=== PATIENT | female | born 1960 | race Caucasian/White ===

== ENCOUNTER 2017-04-14 16:16 | Emergency (ER) | payer BC ==
[2017-04-14] MEDS ORDERED: MECLIZINE 25 MG TAB PO STA (16:50)
[2017-04-14] MEDS ORDERED: DIAZEPAM 5 MG/ML 2 ML SYRINGE IVP STA (16:50)
[2017-04-14] MEDS ORDERED: SCOPOLAMINE 1.5MG/72HR PATCH TRANSDERM STA (16:52)
--- NOTE | 2017-04-14 16:53 | ED ---
General Adult HPI - General Chief complaint: Dizziness Stated complaint: Dizzy Time Seen by Provider: 04/14/17 16:25 Source: patient, RN notes reviewed Mode of arrival: ambulatory Limitations: no limitations - History of Present Illness Initial comments: This is a 57 female presents emergency department stating that this morning she get up and the whole room was spinning and she became nauseous and she laid back down. Patient states the symptoms lasted a few minutes and then seemed to subside. Patient states this occurred multiple times today so she decided come to the emergency department. Patient states she has a mild headache but denies any neck stiffness. Patient denies any numbness weakness. Patient denies any near syncopal episode. Patient states movement seems to make the symptoms worse. Patient states closer eyes does not seem to change in symptoms at all. Patient denies any chest pain palpitations difficulty breathing shortness of breath. Patient denies any fever chills. Patient denies abdominal pain patient denies nausea vomiting or diarrhea. - Related Data Home Medications Medication Instructions Recorded Confirmed Levothyroxine Sodium [Synthroid] 112 mcg PO DAILY 03/26/15 04/14/17 Cimzia(Unknown Dose) 1 dose SQ Q30D 04/14/17 04/14/17 Insulin Aspart (For Pump) [NovoLOG 0.01 unit SQ-PUMP CONTINUOUS 04/14/17 (For Pump)] Previous Rx's Medication Instructions Recorded Meclizine [Antivert] 25 mg PO TID #20 tab 04/14/17 Allergies Allergy/AdvReac Type Severity Reaction Status Date / Time amoxicillin Allergy Nausea & Verified 04/14/17 17:08 Vomiting tetracycline Allergy Rash/Hives Verified 04/14/17 17:08 3-0 Silk Sutures Allergy Cause Uncoded 04/14/17 16:23 Infection Review of Systems ROS Statement: Those systems with pertinent positive or pertinent negative responses have been documented in the HPI. ROS Other: All systems not noted in ROS Statement are negative. Past Medical History Past Medical History: Coronary Artery Disease (CAD), Diabetes Mellitus, Rheumatoid Arthritis (RA) Additional Past Medical History / Comment(s): Patient diagnosed with thyroid cancer, diabetic retinopathy, and hypercholesterolemia. History of Any Multi-Drug Resistant Organisms: None Reported Past Surgical History: Breast Surgery, Section, Coronary Bypass/CABG, Orthopedic Surgery Additional Past Surgical History / Comment(s): Benign breast biopsy; Breast reduction: repair of trigger finger; thyroidectomy, Right knee sx, vectrectomy on left eye Past Anesthesia/Blood Transfusion Reactions: No Reported Reaction Past Psychological History: Depression Smoking Status: Never smoker Past Alcohol Use History: None Reported Past Drug Use History: None Reported General Exam - General Exam Comments Initial Comments: GENERAL: Patient is well-developed and well-nourished. Patient is nontoxic and well- hydrated and is in mild distress. ENT: Neck is soft and supple. No significant lymphadenopathy is noted. Oropharynx is clear. Moist mucous membranes. Neck has full range of motion without eliciting any pain. EYES: The sclera were anicteric and conjunctiva were pink and moist. Extraocular movements were intact and pupils were equal round and reactive to light. Eyelids were unremarkable. PULMONARY: Unlabored respirations. Good breath sounds bilaterally. No audible rales rhonchi or wheezing was noted. CARDIOVASCULAR: There is a regular rate and rhythm without any murmurs gallops or rubs. ABDOMEN: Soft and nontender with normal bowel sounds. SKIN: Skin is clear with no lesions or rashes and otherwise unremarkable. NEUROLOGIC: Patient is alert and oriented x3. Cranial nerves II through XII are grossly intact. Motor and sensory are also intact. Normal speech, volume and content. Symmetrical smile. Cerebellar testing finger to nose was normal bilaterally MUSCULOSKELETAL: Normal extremities with adequate strength and full range of motion. No lower extremity swelling or edema. No calf tenderness. LYMPHATICS: No significant lymphadenopathy is noted PSYCHIATRIC: Normal psychiatric evaluation. Normal interpersonal interactions appears functionally intact in deals appropriately with others. No signs of depression. No signs of anxiety. Limitations: no limitations Course Vital Signs 04/14/17 04/14/17 16:23 17:45 Temperature 98.3 F Pulse Rate 77 74 Respiratory 17 20 Rate Blood Pressure 138/67 134/70 O2 Sat by Pulse 97 98 Oximetry Medical Decision Making - Medical Decision Making EKG shows normal sinus rhythm at 71 bpm MN interval is 176 QRS is 92 QT interval is 400 QTC is 434. Patient's EKG shows no ST segment elevation or depression or T wave normalities are noted. Patient felt better after being medicated emergency department. CAT scan of the patient's head was normal. - Lab Data Result diagrams: 04/14/17 17:00 04/14/17 17:00 Lab Results 04/14/17 04/14/17 04/14/17 Range/Units 17:00 17:00 17:00 WBC 7.7 (3.8-10.6) k/uL RBC 4.93 (3.80-5.40) m/uL Hgb 14.6 (11.4-16.0) gm/dL Hct 43.5 (34.0-46.0) % MCV 88.4 (80.0-100.0) fL MCH 29.6 (25.0-35.0) pg MCHC 33.4 (31.0-37.0) g/dL RDW 13.0 (11.5-15.5) % Plt Count 378 (150-450) k/uL Neutrophils % 60 % Lymphocytes % 26 % Monocytes % 6 % Eosinophils % 5 % Basophils % 1 % Neutrophils # 4.6 (1.3-7.7) k/uL Lymphocytes # 2.0 (1.0-4.8) k/uL Monocytes # 0.5 (0-1.0) k/uL Eosinophils # 0.4 (0-0.7) k/uL Basophils # 0.1 (0-0.2) k/uL PT (9.0-12.0) sec INR (<1.2) APTT (22.0-30.0) sec Sodium 138 (137-145) mmol/L Potassium 4.7 (3.5-5.1) mmol/L Chloride 104 (98-107) mmol/L Carbon Dioxide 23 (22-30) mmol/L Anion Gap 11 mmol/L BUN 21 H (7-17) mg/dL Creatinine 0.60 (0.52-1.04) mg/dL Est GFR (MDRD) Af Amer >60 (>60 ml/min/1.73 sqM) Est GFR (MDRD) Non-Af >60 (>60 ml/min/1.73 sqM) Glucose 339 H (74-99) mg/dL Calcium 9.8 (8.4-10.2) mg/dL Magnesium 2.0 (1.6-2.3) mg/dL Total Bilirubin 0.5 (0.2-1.3) mg/dL AST 19 (14-36) U/L ALT 29 (9-52) U/L Alkaline Phosphatase 91 (38-126) U/L Total Creatine Kinase 58 (30-135) U/L CK-MB (CK-2) 0.7 (0.0-2.4) ng/mL CK-MB (CK-2) Rel Index 1.2 Troponin I <0.012 (0.000-0.034) ng/mL Total Protein 7.3 (6.3-8.2) g/dL Albumin 4.2 (3.5-5.0) g/dL 04/14/17 Range/Units 17:00 WBC (3.8-10.6) k/uL RBC (3.80-5.40) m/uL Hgb (11.4-16.0) gm/dL Hct (34.0-46.0) % MCV (80.0-100.0) fL MCH (25.0-35.0) pg MCHC (31.0-37.0) g/dL RDW (11.5-15.5) % Plt Count (150-450) k/uL Neutrophils % % Lymphocytes % % Monocytes % % Eosinophils % % Basophils % % Neutrophils # (1.3-7.7) k/uL Lymphocytes # (1.0-4.8) k/uL Monocytes # (0-1.0) k/uL Eosinophils # (0-0.7) k/uL Basophils # (0-0.2) k/uL PT 10.0 (9.0-12.0) sec INR 1.0 (<1.2) APTT 22.5 (22.0-30.0) sec Sodium (137-145) mmol/L Potassium (3.5-5.1) mmol/L Chloride (98-107) mmol/L Carbon Dioxide (22-30) mmol/L Anion Gap mmol/L BUN (7-17) mg/dL Creatinine (0.52-1.04) mg/dL Est GFR (MDRD) Af Amer (>60 ml/min/1.73 sqM) Est GFR (MDRD) Non-Af (>60 ml/min/1.73 sqM) Glucose (74-99) mg/dL Calcium (8.4-10.2) mg/dL Magnesium (1.6-2.3) mg/dL Total Bilirubin (0.2-1.3) mg/dL AST (14-36) U/L ALT (9-52) U/L Alkaline Phosphatase (38-126) U/L Total Creatine Kinase (30-135) U/L CK-MB (CK-2) (0.0-2.4) ng/mL CK-MB (CK-2) Rel Index Troponin I (0.000-0.034) ng/mL Total Protein (6.3-8.2) g/dL Albumin (3.5-5.0) g/dL Disposition Clinical Impression: Vertigo Disposition: HOME SELF-CARE Condition: Good Instructions: Vertigo (ED) Prescriptions: Meclizine [Antivert] 25 mg PO TID #20 tab Referrals: Colin Huertas MD [Primary Care Provider] - 1-2 days Time of Disposition: 18:38
[2017-04-14 17:21] LABS: Basophils # (A) 0.1 k/uL (0-0.2); Basophils % (A) 1 %; CH 30.5; CHCM 34.6; Eosinophils # (A) 0.4 k/uL (0-0.7); Eosinophils % (A) 5 %; HCT 43.5 % (34.0-46.0); HDW 2.64; HGB 14.6 gm/dL (11.4-16.0); Luc # (Auto) 0.15; Luc % (Auto) 2; Lymphocytes % (A) 26 %; MCH 29.6 pg (25.0-35.0); MCHC 33.4 g/dL (31.0-37.0); MCV 88.4 fL (80.0-100.0); Mean Platelet Volume 6.7; Monocytes # (A) 0.5 k/uL (0-1.0); Monocytes % (A) 6 %; Neutrophils # (A) 4.6 k/uL (1.3-7.7); Neutrophils % (A) 60 %; RBC 4.93 m/uL (3.80-5.40); WBC 7.7 k/uL (3.8-10.6); WBC (Perox) 7.55
[2017-04-14 17:31] LABS: ALT 29 U/L (9-52); AST 19 U/L (14-36); Alkaline Phosphatase 91 U/L (38-126); Anion Gap 11 mmol/L; Blood Urea Nitrogen 21 mg/dL (7-17); Calcium 9.8 mg/dL (8.4-10.2); Carbon Dioxide 23 mmol/L (22-30); Chloride 104 mmol/L (98-107); Glucose 339 mg/dL (74-99); Non-African American GFR(MDRD) >60 (>60 ml/min/1.73 sqM); Potassium 4.7 mmol/L (3.5-5.1); Sodium 138 mmol/L (137-145); Total Bilirubin 0.5 mg/dL (0.2-1.3); Total Protein 7.3 g/dL (6.3-8.2)
[2017-04-14 17:44] LABS: Creatine Kinase 58 U/L (30-135); Partial Thromboplastin Time 22.5 sec (22.0-30.0)
--- NOTE | 2017-04-14 17:50 | CT ---
EXAMINATION TYPE: CT brain wo con DATE OF EXAM: 04/14/2017 COMPARISON: NONE HISTORY: Dizziness today. CT DLP: 960.5 mGycm. Automated exposure control for dose reduction was used. FINDINGS: There is no acute intracranial hemorrhage, mass effect, or midline shift identified. The v entricles and sulci are within normal limits in size. The globes are intact and the visualized sinus es are clear. IMPRESSION: No acute intracranial hemorrhage, mass effect, or midline shift is seen.
--- NOTE | 2017-04-14 17:53 | XR ---
EXAMINATION TYPE: XR chest 2V DATE OF EXAM: 04/14/2017 COMPARISON: 08/14/2015 HISTORY: Pain TECHNIQUE: Frontal and lateral views of the chest are obtained. FINDINGS: Sternal sutures and mediastinal clips are redemonstrated. EKG leads. There is no focal air space opacity, pleural effusion, or pneumothorax seen. The cardiac silhouette size is within normal limits. The osseous structures are intact. IMPRESSION: No acute cardiopulmonary process.
[2017-04-14 17:57] LABS: Creatine Kinase MB 0.7 ng/mL (0.0-2.4); Troponin I <0.012 ng/mL (0.000-0.034)
[2017-04-14 19:02] VITALS: BP 119/69; PULSE 68; RESP 16; TEMP 97.6
== END 2017-04-14 19:11 | disposition home or self-care (01) ==
LOC: EC 16:16
DX: R42 Dizziness and giddiness (principal); R11.0 Nausea; R51 Headache; M06.9 Rheumatoid arthritis, unspecified; E11.319 Type 2 diabetes mellitus with unspecified diabetic retinopathy without macular edema; Z85.850 Personal history of malignant neoplasm of thyroid; Z88.0 Allergy status to penicillin; Z88.1 Allergy status to other antibiotic agents; Z91.048 Other nonmedicinal substance allergy status; Z79.4 Long term (current) use of insulin; Z79.899 Other long term (current) drug therapy
CPT/HCPCS: 99284; 96374; 36415; 93005; 80053; 82550; 82553; 83735; 84484; 85025; 85610; 85730; 71020; 70450; J3360

== ENCOUNTER → 2017-09-21 | Outpatient (CLI) | payer BC ==
--- NOTE | 2017-09-21 18:10 | XR ---
EXAMINATION TYPE: XR chest 2V DATE OF EXAM: 09/21/2017 COMPARISON: 04/14/2017 HISTORY: MRI clearance TECHNIQUE: Frontal and lateral views of the chest are obtained. FINDINGS: Heart and mediastinum are normal. Lungs are clear. There are sternal wires. Bony thorax is intact. Diaphragm is normal. IMPRESSION: Previous cardiac surgery. Otherwise negative exam. No evidence of a cardiac lead.. No ac tive cardiopulmonary disease.
== END | disposition home or self-care (01) ==
LOC: RADXRMAIN 17:45
PROVIDERS: ATTEND Orthopaedic Surgery Sports Medicine
DX: Z01.818 Encounter for other preprocedural examination (principal); M75.41 Impingement syndrome of right shoulder; M75.81 Other shoulder lesions, right shoulder; Z86.39 Personal history of other endocrine, nutritional and metabolic disease; Z87.39 Personal history of other diseases of the musculoskeletal system and connective tissue; Z98.890 Other specified postprocedural states
CPT/HCPCS: 71046

== ENCOUNTER 2018-03-24 01:37 | Inpatient (IN) | payer BC ==
[2018-03-24 06:02] LABS: ALT 31 U/L (9-52); AST 21 U/L (14-36); Albumin 4.7 g/dL (3.5-5.0); Alkaline Phosphatase 149 U/L (38-126); Amylase 48 U/L (30-110); Anion Gap 15 mmol/L; Blood Urea Nitrogen 26 mg/dL (7-17); Calcium 10.4 mg/dL (8.4-10.2); Carbon Dioxide 21 mmol/L (22-30); Chloride 100 mmol/L (98-107); GGT 23 U/L (12-43); Lipase 67 U/L (23-300); Potassium 4.6 mmol/L (3.5-5.1); Sodium 136 mmol/L (137-145); Total Bilirubin 0.4 mg/dL (0.2-1.3); Total Protein 7.6 g/dL (6.3-8.2)
[2018-03-24 06:05] LABS: Creatine Kinase 200 U/L (30-135); Creatine Kinase MB 1.8 ng/mL (0.0-2.4); Troponin I <0.012 ng/mL (0.000-0.034)
[2018-03-24 06:07] LABS: Glucose 500 mg/dL (74-99)
[2018-03-24 06:14] LABS: Basophils % (A) 0 %; Eosinophils % (A) 0 %; HCT 43.7 % (34.0-46.0); HGB 14.5 gm/dL (11.4-16.0); Lymphocytes # (A) 1.1 k/uL (1.0-4.8); Lymphocytes % (A) 7 %; MCH 29.9 pg (25.0-35.0); MCHC 33.2 g/dL (31.0-37.0); Mean Platelet Volume 6.4; Monocytes # (A) 0.8 k/uL (0-1.0); Monocytes % (A) 4 %; Neutrophils # (A) 15.2 k/uL (1.3-7.7); Neutrophils % (A) 88 %; Platelet Count 441 k/uL (150-450); RBC 4.86 m/uL (3.80-5.40); RDW 12.4 % (11.5-15.5); WBC 17.2 k/uL (3.8-10.6)
[2018-03-24 06:23] LABS: Prothrombin Time 9.5 sec (9.0-12.0)
[2018-03-24 06:28] LABS: Partial Thromboplastin Time 20.5 sec (22.0-30.0)
[2018-03-24 07:02] LABS: Glucose,Whole Blood 266 mg/dL (75-99)
[2018-03-24] MEDS: HEPARIN SOD,PORK IN 0.45% NACL 25,000 UNIT in 0.45% NACL 1 500ML.BAG IV SCH (07:23)
[2018-03-24] MEDS: SODIUM CHLORIDE 0.9% 1,000 ML IV SCH (07:28)
[2018-03-24] MEDS ORDERED: NITROGLYCERIN SL TABS 0.4 MG TAB SUBLINGUAL PRN (07:46)
[2018-03-24] MEDS ORDERED: MORPHINE SULFATE 4 MG/ML SYRINGE IV PRN (07:46)
[2018-03-24] MEDS ORDERED: ALPRAZolam 0.25 MG TAB PO PRN (07:46)
[2018-03-24] MEDS ORDERED: ZOLPIDEM 5 MG TAB PO PRN (07:46)
[2018-03-24] MEDS ORDERED: ACETAMINOPHEN TAB 325 MG TAB PO PRN (07:46)
[2018-03-24] MEDS: ASPIRIN 325 MG TAB PO SCH (08:25)
[2018-03-24] MEDS: METOPROLOL TARTRATE 12.5 MG TAB PO SCH ×2 (08:25→21:22)
[2018-03-24 09:15] LABS: Cholesterol 160 mg/dL (<200); HDL Cholesterol 45 mg/dL (40-60); LDL Cholesterol,Calculated 103 mg/dL (0-99); Triglycerides 61 mg/dL (<150)
[2018-03-24 09:22] LABS: Creatine Kinase 213 U/L (30-135)
[2018-03-24 09:36] LABS: Creatine Kinase MB 1.8 ng/mL (0.0-2.4); Troponin I <0.012 ng/mL (0.000-0.034)
--- NOTE | 2018-03-24 11:17 | XR ---
EXAMINATION TYPE: XR chest 1V portable DATE OF EXAM: 03/24/2018 HISTORY: Shortness of breath. COMPARISON: None. TECHNIQUE: Single view of the chest is submitted. FINDINGS: Demonstrated are scattered senescent parenchymal change. There is no evidence for focal infiltrate. The heart is stable. Hilar and mediastinal structures are within normal limits. Degenerative changes are seen of the dorsal spine. IMPRESSION: 1. Chronic changes without evidence for acute pulmonary disease.
--- NOTE | 2018-03-24 11:44 | CONS ---
CONSULTATION Mia Diaz is a 57-year-old female patient who has seen Dr. Leo Rowley in the past. She is on last in April of 2015, but has not seen him since. She was being treated for an upper respiratory infection, cough, expectoration. She has been treated with steroids and subsequently she started experiencing epigastric discomfort, chest discomfort, shortness of breath and came to the hospital. Her first 12-lead ECG did not show any evidence for any ST-segment abnormalities. LABS: Showed elevated white count of 17.2, sodium 136, potassium 4.6, BUN 26, creatinine 0.7, glucose 500, LDL 103. MEDICATION LIST: At home includes metoprolol succinate, losartan, atorvastatin, levothyroxine, dexamethasone, codeine, insulin. ALLERGIES: To AMOXICILLIN, TETRACYCLINE. REVIEW OF SYSTEMS: She has had fever, chills, cough, expectoration. No nausea, vomiting, or diarrhea. No hematuria or dysuria. No strokes or seizures or skin lesions. No musculoskeletal complaints. Epigastric discomfort and chest pain noted. PHYSICAL EXAMINATION: Pulse rate is in the 70s and 80s. She is afebrile, 98.7 degrees Fahrenheit, respirations are normal, blood pressure is normal 117/58 mmHg. Head and neck examination is normal. Heart sounds, S1, S2 are normal. No murmurs, no gallops, no rub. Breath sounds are reduced bilaterally with occasional crackles at the bases. Abdomen is soft, nontender. Extremities are warm. IMPRESSION: 1. Patient is a 57-year-old female presenting with chest discomfort and shortness of breath. 2. Upper respiratory and bronchitic symptoms and being treated with steroids for this. 3. History of coronary artery disease, coronary artery bypass grafting. 4. History of Cozaar, history of hypertension and diabetes. Suggest three serial cardiac enzymes, serial EKGs and further management thereafter and please continue treatment her for chronic obstructive pulmonary disease. MMODL / IJN: [id number] /
[2018-03-24 12:06] LABS: Glucose,Whole Blood 359 mg/dL (75-99)
[2018-03-24] MEDS ORDERED: INSULIN PUMP TARGET GLUCOSE 1 EACH MISC MISCELLANE PRN (12:29)
[2018-03-24] MEDS ORDERED: INSPUCOR MISCELLANE PRN (12:29)
[2018-03-24] MEDS ORDERED: INSULIN PUMP BASAL RATES 1 EACH MISC MISCELLANE PRN (12:29)
[2018-03-24] MEDS ORDERED: INSULIN PUMP ACTIVE INSULIN 1 EACH MISC MISCELLANE PRN (12:29)
[2018-03-24] MEDS ORDERED: INSULIN ASPART 100 UNIT/ML 1 ML 10 ML VIAL SQ PRN (12:29)
[2018-03-24] MEDS: INSULIN PUMP MEAL BOLUS 1 UNIT MISC MISCELLANE SCH ×3 (12:51→21:22)
--- NOTE | 2018-03-24 14:06 | P.HPIM ---
<Vinny,Hamlet - Last Filed: 03/24/18 14:07> History of Present Illness H&P Date: 03/24/18 Chief Complaint: Chest pain and angina, CAD, type 1 diabetes, rheumatoid arthritis, history 57-year-old female one of Dr. Deras patient with past medical history of CAD post CABG, history of diabetes type 1 on insulin pump, history of rheumatoid arthritis who is on biological agent also had history of thyroid cancer post thyroidectomy and medical management. Patient presented to the emergency department at [facility] complaining of mild upper respiratory associated with cough wheezes along with mild epigastric pain with increase heartburn and indigestion symptom were associated with tightness and pressure in the midsternal area radiating toward the jaw on the left upper side associated with worsening shortness of breath along with lightheadedness and mild palpitation. Symptoms were not relieved with aspirin according to patient with her history of coronary artery disease post surgery in the past and a very high risk factor ended up being hospitalized. Patient CK and troponin came back negative EKG did not show any change in her ST waves. Apparently patient recently was changed to a makeup editor in [facility] which made an appointment for follow-up in the next few weeks for testing. Patient will be kept in the Hospital CK with troponin 3 will be done if they' re negative patient will be released from the hospital to follow with her makeup editor for further testing. If troponin is elevated discussion with the patient whether once to be transfer close to her makeup editor or agreeable to do heart catheter in town. Also patient wants to go home late in the afternoon for troponin are negative it 's her birthday tomorrow and once to be home for the night. Review of Systems CONSTITUTIONAL: Well-developed no acute respiratory distress. EYES: No icterus sclerae, no conjunctivitis. EARS, NOSE, MOUTH, THROAT, and FACE: No sore throat, lymphadenopathy, carotid bruits or deformity. RESPIRATORY: Positive shortness of breath, cough, wheezes with URI symptoms. CARDIOVASCULAR: Positive chest pain, palpitation, PND and mild anginal symptoms. GASTROINTESTINAL: Nausea with increase heartburn with Dilaudid vomiting with worsening indigestion. GENITOURINARY: Negative for Hematuria or UTI, no kidney stones. INTEGUMENT/BREAST: Negative for any muscular injury with mild osteoarthritis.. HEMATOLOGIC/LYMPHATIC: Negative for bleed or purpura. MUSCULOSKELTAL: Negative for Myalgia or arthralgia. NEURLOGICAL: No LOC, Sz or syncope, blurred vision dizziness or abnormality.. BEHAVIORAL/PSYCH: Negative. ENDOCRINE: Negative. Medications and Allergies Home Medications Medication Instructions Recorded Confirmed Type Cimzia(Unknown Dose) 1 dose SQ Q30D 04/14/17 03/24/18 History Insulin Aspart (For Pump) [NovoLOG 0.01 unit SQ-PUMP CONTINUOUS 04/14/17 History (For Pump)] Albuterol Sulfate [Proair Hfa] 1 - 2 puff INHALATION RT-Q6H PRN 03/24/18 History Atorvastatin [Lipitor] 40 mg PO HS 03/24/18 03/24/18 History Codeine Phosphate/Guaifenesin 5 ml PO HS 03/24/18 03/24/18 History [Cheratussin AC Syrup] Dexamethasone [Hexadrol] 4 mg PO TID 03/24/18 03/24/18 History Levothyroxine Sodium [Synthroid] 100 mcg PO [id number] 03/24/18 03/24/18 History Losartan [Cozaar] 50 mg PO DAILY #0 03/24/18 03/24/18 Rx Metoprolol Succinate [Toprol XL] 25 mg PO DAILY #0 03/24/18 03/24/18 Rx Allergies Allergy/AdvReac Type Severity Reaction Status Date / Time amoxicillin Allergy Nausea & Verified 03/24/18 07:08 Vomiting tetracycline Allergy Rash/Hives Verified 03/24/18 07:08 3-0 Silk Sutures Allergy Cause Uncoded 04/14/17 16:23 Infection Physical Exam Vitals: Vital Signs Temp Pulse Resp BP Pulse Ox 03/24/18 12:00 98.4 F 75 18 108/71 97 03/24/18 07:57 79 18 03/24/18 05:45 98.7 F 85 18 117/58 99 Intake and Output 03/23/18 03/24/18 03/24/18 22:59 06:59 14:59 Intake Total 1000 Balance 1000 Intake: Oral 1000 Other: Voiding Method Toilet # Voids 1 Weight 62.596 kg Results CBC & Chem 7: 03/24/18 02:11 03/24/18 02:11 Labs: Abnormal Lab Results - Last 24 Hours (Table) 03/24/18 03/24/18 03/24/18 Range/Units 02:11 02:11 02:11 WBC 17.2 H (3.8-10.6) k/uL Neutrophils # 15.2 H (1.3-7.7) k/uL APTT (22.0-30.0) sec Sodium 136 L (137-145) mmol/L Carbon Dioxide 21 L (22-30) mmol/L BUN 26 H (7-17) mg/dL Glucose 500 H* (74-99) mg/dL POC Glucose (mg/dL) (75-99) mg/dL Calcium 10.4 H (8.4-10.2) mg/dL Alkaline Phosphatase 149 H (38-126) U/L Total Creatine Kinase 200 H (30-135) U/L LDL Cholesterol, Calc (0-99) mg/dL 03/24/18 03/24/18 03/24/18 Range/Units 02:11 06:59 08:27 WBC (3.8-10.6) k/uL Neutrophils # (1.3-7.7) k/uL APTT 20.5 L (22.0-30.0) sec Sodium (137-145) mmol/L Carbon Dioxide (22-30) mmol/L BUN (7-17) mg/dL Glucose (74-99) mg/dL POC Glucose (mg/dL) 266 H (75-99) mg/dL Calcium (8.4-10.2) mg/dL Alkaline Phosphatase (38-126) U/L Total Creatine Kinase 213 H (30-135) U/L LDL Cholesterol, Calc (0-99) mg/dL 03/24/18 03/24/18 Range/Units 08:27 12:03 WBC (3.8-10.6) k/uL Neutrophils # (1.3-7.7) k/uL APTT (22.0-30.0) sec Sodium (137-145) mmol/L Carbon Dioxide (22-30) mmol/L BUN (7-17) mg/dL Glucose (74-99) mg/dL POC Glucose (mg/dL) 359 H (75-99) mg/dL Calcium (8.4-10.2) mg/dL Alkaline Phosphatase (38-126) U/L Total Creatine Kinase (30-135) U/L LDL Cholesterol, Calc 103 H (0-99) mg/dL Thrombosis Risk Factor Assmnt - DVT/VTE Prophylaxis DVT/VTE Prophylaxis: Pharmacologic Prophylaxis ordered, Mechanical Prophylaxis ordered Assessment and Plan Plan: 1 chest pain: Atypical and most likely noncardiac in origin but with patient's significant risk factor and previous history of CAD, patient will be hospitalized CK with troponin will be done if negative discharged from the hospital and follow testing as an outpatient if positive might require testing in the hospital. 2 CAD: Post CABG has been seeing cardiology. 3 rheumatoid arthritis: Has been on biological agent which is Cimzia once a month still seen crematory attendant regularly. 4 type 1 diabetes: On insulin pump, patient blood sugar was quite bit high yesterday secondary to steroid use and diet, blood sugar today is much better continue insulin pump the same rate continue Accu-Chek with sliding scale. 5 hypertension: Continue metoprolol and losartan. 6 hyperlipidemia: Remain on atorvastatin 40 mg daily. 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 8 recent history of CAD mostly mild bronchitis was placed on Medrol Dosepak and medication with Dr. Huertas. 9 GI prophylaxis: Patient will be on pantoprazole 40 mg daily. 10 DVT prophylaxis: If remain in the hospital past 24 hours we'll do heparin subcutaneous otherwise patient will have knee-high [place] hose and early mobilization. CODE STATUS: Full code. Admit patient to 23 hours hold. <Vero Montes A - Last Filed: 03/25/18 10:41> History of Present Illness H&P Date: 03/24/18 Past Medical History Past Medical History: Coronary Artery Disease (CAD), Diabetes Mellitus, Hyperlipidemia, Rheumatoid Arthritis (RA), Thyroid Disorder Additional Past Medical History / Comment(s): pt had medullulary thyroid cancer , diabetic retinopathy, and hypercholesterolemia. History of Any Multi-Drug Resistant Organisms: None Reported Past Surgical History: Breast Surgery, Section, Coronary Bypass/CABG, Orthopedic Surgery Additional Past Surgical History / Comment(s): CABG - triple [address] Boris Austin, Benign breast biopsy; Breast reduction: repair of trigger finger; thyroidectomy 2012, Right knee sx, vectrectomy on left eye, cataract Past Anesthesia/Blood Transfusion Reactions: No Reported Reaction Past Psychological History: No Psychological Hx Reported, Depression Smoking Status: Never smoker Past Alcohol Use History: None Reported Past Drug Use History: None Reported - Past Family History Father Family Medical History: Coronary Artery Disease (CAD), CVA/TIA Additional Family Medical History / Comment(s): Father at age 88 with history of CVA and cardiovascular disease, triple bypass at age 69 Mother Family Medical History: Cancer Additional Family Medical History / Comment(s): breast ca at 66 Brother(s) Additional Family Medical History / Comment(s): Patient has 1 brother that has with history of thyroid medullary cancer, he was a [place] vet with exposure to agent orange and complications. Sister(s) Additional Family Medical History / Comment(s): She has one sister that is alive with history of diabetes mellitus type 2. Patient has 2 children with no major medical problems. Physical Exam Vitals: Vital Signs Temp Pulse Resp BP Pulse Ox 03/24/18 07:57 79 18 03/24/18 05:45 98.7 F 85 18 117/58 99 Intake and Output 03/23/18 03/24/18 03/24/18 22:59 06:59 14:59 Other: Voiding Method Toilet # Voids 1 Weight 62.596 kg Results CBC & Chem 7: 03/24/18 02:11 03/24/18 02:11 Labs: Abnormal Lab Results - Last 24 Hours (Table) 03/24/18 03/24/18 03/24/18 Range/Units 02:11 02:11 02:11 WBC 17.2 H (3.8-10.6) k/uL Neutrophils # 15.2 H (1.3-7.7) k/uL APTT (22.0-30.0) sec Sodium 136 L (137-145) mmol/L Carbon Dioxide 21 L (22-30) mmol/L BUN 26 H (7-17) mg/dL Glucose 500 H* (74-99) mg/dL POC Glucose (mg/dL) (75-99) mg/dL Calcium 10.4 H (8.4-10.2) mg/dL Alkaline Phosphatase 149 H (38-126) U/L Total Creatine Kinase 200 H (30-135) U/L LDL Cholesterol, Calc (0-99) mg/dL 03/24/18 03/24/18 03/24/18 Range/Units 02:11 06:59 08:27 WBC (3.8-10.6) k/uL Neutrophils # (1.3-7.7) k/uL APTT 20.5 L (22.0-30.0) sec Sodium (137-145) mmol/L Carbon Dioxide (22-30) mmol/L BUN (7-17) mg/dL Glucose (74-99) mg/dL POC Glucose (mg/dL) 266 H (75-99) mg/dL Calcium (8.4-10.2) mg/dL Alkaline Phosphatase (38-126) U/L Total Creatine Kinase 213 H (30-135) U/L LDL Cholesterol, Calc (0-99) mg/dL 03/24/18 Range/Units 08:27 WBC (3.8-10.6) k/uL Neutrophils # (1.3-7.7) k/uL APTT (22.0-30.0) sec Sodium (137-145) mmol/L Carbon Dioxide (22-30) mmol/L BUN (7-17) mg/dL Glucose (74-99) mg/dL POC Glucose (mg/dL) (75-99) mg/dL Calcium (8.4-10.2) mg/dL Alkaline Phosphatase (38-126) U/L Total Creatine Kinase (30-135) U/L LDL Cholesterol, Calc 103 H (0-99) mg/dL Thrombosis Risk Factor Assmnt - Choose All That Apply Each Factor Represents 1 point: Age 41-60 years Thrombosis Risk Factor Assessment Total Risk Factor Score: 1 Thrombosis Risk Factor Assessment Level: Low Risk
[2018-03-24 14:38] LABS: Creatine Kinase MB 2.1 ng/mL (0.0-2.4)
[2018-03-24 15:11] LABS: Troponin I 0.064 ng/mL (0.000-0.034)
[2018-03-24 17:21] LABS: Glucose,Whole Blood 204 mg/dL (75-99)
[2018-03-24 19:03] LABS: Hemoglobin A1C 11.8 % (4.0-6.0)
[2018-03-24 21:12] LABS: Glucose,Whole Blood 288 mg/dL (75-99)
[2018-03-25 07:14] LABS: Glucose,Whole Blood 193 mg/dL (75-99)
[2018-03-25] MEDS: INSULIN PUMP MEAL BOLUS 1 UNIT MISC MISCELLANE SCH ×4 (08:17→22:31)
[2018-03-25] MEDS ORDERED: ATORVASTATIN 40 MG TAB PO SCH (10:00)
--- NOTE | 2018-03-25 10:24 | PN ---
PROGRESS NOTE Mrs. Diaz is a 57-year-old female with known history of coronary artery disease, status post coronary artery bypass grafting, history of diabetes who had a recent upper respiratory infection with cough and subsequently had discomfort between her shoulder blade and jaw discomfort reminding her of the symptoms she had prior to her bypass 7 years ago. She is feeling well this morning. She still continues to have the cough, although not as severe. She has some cough that is improving. She has no further chest pain. She denies any dizziness or palpitation. No peripheral edema. No nausea. No vomiting. She continues to be on aspirin once a day, Lopressor 12-1/2 tab twice a day, insulin, IV heparin. PHYSICAL EXAMINATION: Blood pressure running in the 130-150 with a heart in the 60s. LUNGS: Clear. Heart regular rate and rhythm S1, S2. No S3 with a systolic murmur. ABDOMEN: Soft and nontender. EXTREMITIES: No edema. LAB DATA: Lab data revealed troponin less than 0.012 for 2 samples. Third sample 0.064. Cholesterol 160, LDL 103. EKG revealed a sinus mechanism with minor nonspecific ST-T wave changes. IMPRESSION: 1. Upper respiratory infection. 2. Non ST-segment elevation myocardial infarction in a patient with known history of coronary artery disease. 3. Diabetes mellitus. 4. Hypertension. 5. Hyperlipidemia. RECOMMENDATION: I have discussed with the patient and her the finding in detail. I have recommend proceeding with coronary angiography. The patient is followed on a regular basis by instrument inspector down at [facility]. I would favor waiting until Tuesday for her upper respiratory infection to improve. If the patient favors to be undergoing the surgery, at [facility], she will be transferred. I have discussed those findings with Dr. Joya who is her admitting physician. Otherwise, Dr. Rowley will do her procedure on Tuesday. In the meantime, we will continue present therapy. I will add clopidogrel to her regimen and depending on her progress, further recommendations will be made. MMODL / IJN: [id number] /
[2018-03-25] MEDS ORDERED: HEPARIN SODIUM,PORCINE 5,000 UNIT/ML 1 ML VIAL IV PRN (10:31)
[2018-03-25] MEDS: CLOPIDOGREL 75 MG TAB PO SCH (11:27)
[2018-03-25] MEDS: ISOSORBIDE MONONITRATE ER 30 MG TAB.ER.24H PO SCH (11:27)
[2018-03-25] MEDS: METOPROLOL TARTRATE 12.5 MG TAB PO SCH ×2 (11:31→22:31)
[2018-03-25] MEDS: PANTOPRAZOLE 40 MG/10 ML VIAL IVP SCH (11:31)
[2018-03-25] MEDS: ASPIRIN 325 MG TAB PO SCH (11:31)
[2018-03-25] MEDS: HEPARIN SOD,PORK IN 0.45% NACL 25,000 UNIT in 0.45% NACL 1 500ML.BAG IV SCH (11:33)
[2018-03-25 12:21] LABS: Glucose,Whole Blood 181 mg/dL (75-99)
--- NOTE | 2018-03-25 12:44 | P.PN ---
Subjective Progress Note Date: 03/25/18 57-year-old female one of Dr. Deras patient with past medical history of CAD post CABG, history of diabetes type 1 on insulin pump, history of rheumatoid arthritis who is on biological agent also had history of thyroid cancer post thyroidectomy and medical management. Patient presented to the emergency department at [facility] complaining of mild upper respiratory associated with cough wheezes along with mild epigastric pain with increase heartburn and indigestion symptom were associated with tightness and pressure in the midsternal area radiating toward the jaw on the left upper side associated with worsening shortness of breath along with lightheadedness and mild palpitation. Symptoms were not relieved with aspirin according to patient with her history of coronary artery disease post surgery in the past and a very high risk factor ended up being hospitalized. Patient CK and troponin came back negative EKG did not show any change in her ST waves. Apparently patient recently was changed to a underwear welter in [facility] which made an appointment for follow-up in the next few weeks for testing. Patient will be kept in the Hospital CK with troponin 3 will be done if they' re negative patient will be released from the hospital to follow with her underwear welter for further testing. If troponin is elevated discussion with the patient whether once to be transfer close to her underwear welter or agreeable to do heart catheter in town. Also patient wants to go home late in the afternoon for troponin are negative it 's her birthday tomorrow and once to be home for the night. 03/25: Objective - Vital Signs Vital signs: Vital Signs Temp 98.3 F 03/25/18 03:40 Pulse 57 L 03/25/18 08:00 Resp 16 03/25/18 08:00 BP 150/74 03/25/18 03:40 Pulse Ox 98 03/25/18 03:40 Intake & Output 03/24/18 03/25/18 03/25/18 18:59 06:59 18:59 Intake Total 1200 281.375 Balance 1200 281.375 Intake: Intake, IV Titration 281.375 Amount Heparin Sod,Pork in 0.45% 281.375 NaCl 25,000 unit In 0.45 % NaCl 1 500ml.bag @ 12 UNITS/KG/HR 15.02 mls/hr IV .Q24H PERRY Rx#: [id number] Oral 1200 Other: Voiding Method Toilet Toilet Toilet # Voids 1 3 - Exam Gen: This is a 58-year-old female patient. Today she is very tearful and crying as she is concerned about her heart and need for heart catheterization with elevated troponin on the third trial. HEENT: Head is atraumatic, normocephalic. Pupils equal, round. Sclerae is anicteric. NECK: Supple. No JVD. No lymphadenopathy. No thyromegaly. LUNGS: Clear to auscultation. No wheezes or rhonchi. No intercostal retractions. HEART: Regular rate and rhythm. No murmur. ABDOMEN: Soft. Bowel sounds are present. No masses. No tenderness. EXTREMITIES: No pedal edema. No calf tenderness. NEUROLOGICAL: Patient is awake, alert and oriented x3. Cranial nerves 2 through 12 are grossly intact. - Labs CBC & Chem 7: 03/24/18 02:11 03/24/18 02:11 Labs: Abnormal Lab Results - Last 24 Hours (Table) 03/24/18 03/24/18 03/24/18 Range/Units 12:03 13:46 17:14 APTT (22.0-30.0) sec POC Glucose (mg/dL) 359 H 204 H (75-99) mg/dL Total Creatine Kinase 214 H (30-135) U/L Troponin I 0.064 H* (0.000-0.034) ng/mL 03/24/18 03/25/18 03/25/18 Range/Units 21:07 07:11 08:25 APTT 41.8 H (22.0-30.0) sec POC Glucose (mg/dL) 288 H 193 H (75-99) mg/dL Total Creatine Kinase (30-135) U/L Troponin I (0.000-0.034) ng/mL Assessment and Plan Plan: 1. Chest pain with or troponin elevated. Patient has been seen by Dr. Aguilera with plan for heart catheterization on Tuesday. Patient has discussed with her own underwear welter and has decided to stay at [facility]. A fourth troponin has been ordered. Continue aspirin, Plavix, heparin drip, Imdur, Cozaar, Lopressor. 2 CAD: Post CABG has been seeing cardiology. 3 rheumatoid arthritis: Has been on biological agent which is Cimzia once a month still seen senior office support assistant sosa regularly. 4 type 1 diabetes: On insulin pump, patient blood sugar was quite bit high yesterday secondary to steroid use and diet, blood sugar today is much better continue insulin pump the same rate continue Accu-Chek with sliding scale. 5 hypertension: Continue metoprolol and losartan. 6 hyperlipidemia: Remain on atorvastatin 40 mg daily. 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 8 recent history of CAD mostly mild bronchitis was placed on Medrol Dosepak and medication with Dr. Huertas. 9 GI prophylaxis: Patient will be on pantoprazole 40 mg daily. 10 DVT prophylaxis: If remain in the hospital past 24 hours we'll do heparin subcutaneous otherwise patient will have knee-high [place] hose and early mobilization. CODE STATUS: Full code. Discharge plan: Discharge home Impression and plan of care have been directed as dictated by the signing physician. Vero Montes nurse practitioner acting as scribe for signing physician.
[2018-03-25] MEDS: SODIUM CHLORIDE 0.9% 1,000 ML IV SCH (15:27)
--- NOTE | 2018-03-25 16:17 | ECHOF ---
Referral Reason:cad MEASUREMENTS -------- HEIGHT: 152.4 cm WEIGHT: 62.6 kg BP: IVSd: 0.9 cm (0.6 - 1.1) LVIDd: 3.8 cm (3.9 - 5.3) LVPWd: 0.7 cm (0.6 - 1.1) IVSs: 1.1 cm LVIDs: 2.8 cm LVPWs: 1.0 cm LA Diam: 2.7 cm (2.7 - 3.8) LAESV Index (A-L): 21.26 ml/m Ao Diam: 2.6 cm (2.0 - 3.7) AV Cusp: 1.3 cm (1.5 - 2.6) LA Diam: 3.2 cm (2.7 - 3.8) MV EXCURSION: 13.970 mm (> 18.000) MV EF SLOPE: 69 mm/s (70 - 150) EPSS: 0.3 cm MV E Jorge: 0.92 m/s MV DecT: 200 ms MV A Jorge: 0.63 m/s MV E/A Ratio: 1.45 RAP: 5.00 mmHg RVSP: 18.20 mmHg FINDINGS -------- Sinus rhythm. This was a techncally difficult study with suboptimal views, , Lumason utilized for enhancement of im ages. The left ventricular size is normal. Left ventricular wall thickness is normal. Overall left vent ricular systolic function is low-normal with, an EF between 50 - 55 %. Apical anterior LV wall yolis on is hypokinetic. Apical septum LV wall motion is hypokinetic. The right ventricle is normal in size. The left atrial size is normal. The right atrial size is normal. 5.0mg OF Lumason UTLIZED: 2 OR MORE WALL SEGMENTS NOT VISUALIZED. There is mild aortic valve sclerosis. There is no evidence of aortic regurgitation. The mitral valve is normal. Mild mitral regurgitation is present. Mild tricuspid regurgitation present. There is no evidence of pulmonary hypertension. The right v entricular systolic pressure, as measured by Doppler, is 18.20mmHg. There is no pulmonic regurgitation present. The aortic root size is normal. There is no pericardial effusion. CONCLUSIONS -------- 1. Sinus rhythm. 2. The left ventricular size is normal. 3. Left ventricular wall thickness is normal. 4. Overall left ventricular systolic function is low-normal with, an EF between 50 - 55 %. 5. Apical anterior LV wall motion is hypokinetic. 6. Apical septum LV wall motion is hypokinetic. 7. The left atrial size is normal. 8. 5.0mg OF Lumason UTLIZED: 2 OR MORE WALL SEGMENTS NOT VISUALIZED. 9. There is mild aortic valve sclerosis. 10. Mild mitral regurgitation is present. 11. Mild tricuspid regurgitation present. 12. There is no evidence of pulmonary hypertension. 13. There is no pulmonic regurgitation present. 14. The aortic root size is normal. 15. There is no pericardial effusion. AUTOTRANSFUSIONIST: Hanny العلي RDCS
[2018-03-25 17:00] LABS: Glucose,Whole Blood 195 mg/dL (75-99)
[2018-03-25 21:03] LABS: Glucose,Whole Blood 313 mg/dL (75-99)
[2018-03-26] MEDS: MELATONIN 5 MG TABLET PO SCH ×2 (03:21→21:10)
[2018-03-26 06:25] LABS: Glucose,Whole Blood 219 mg/dL (75-99)
[2018-03-26] MEDS: SODIUM CHLORIDE 0.9% 1,000 ML IV SCH (06:32)
[2018-03-26] MEDS: INSULIN PUMP MEAL BOLUS 1 UNIT MISC MISCELLANE SCH ×4 (06:32→21:12)
[2018-03-26 07:12] LABS: Anion Gap 7 mmol/L; Blood Urea Nitrogen 18 mg/dL (7-17); Calcium 8.4 mg/dL (8.4-10.2); Carbon Dioxide 25 mmol/L (22-30); Chloride 106 mmol/L (98-107); Glucose 243 mg/dL (74-99); Potassium 3.8 mmol/L (3.5-5.1); Sodium 138 mmol/L (137-145)
[2018-03-26] MEDS: HEPARIN SOD,PORK IN 0.45% NACL 25,000 UNIT in 0.45% NACL 1 500ML.BAG IV SCH (07:31)
[2018-03-26] MEDS ORDERED: ALBUTEROL NEBULIZED 2.5 MG/3 ML INHALATION PRN (08:52)
[2018-03-26] MEDS: PANTOPRAZOLE 40 MG/10 ML VIAL IVP SCH (08:54)
[2018-03-26] MEDS: METOPROLOL TARTRATE 12.5 MG TAB PO SCH ×2 (08:54→21:09)
[2018-03-26] MEDS: CLOPIDOGREL 75 MG TAB PO SCH (08:54)
[2018-03-26] MEDS: ATORVASTATIN 80 MG TAB PO SCH (08:54)
[2018-03-26] MEDS: ASPIRIN 325 MG TAB PO SCH (08:54)
[2018-03-26] MEDS: LOSARTAN 50 MG TAB PO SCH (08:54)
[2018-03-26] MEDS: ISOSORBIDE MONONITRATE ER 30 MG TAB.ER.24H PO SCH (08:54)
--- NOTE | 2018-03-26 09:11 | P.PN ---
Subjective Progress Note Date: 03/26/18 57-year-old female one of Dr. Deras patient with past medical history of CAD post CABG, history of diabetes type 1 on insulin pump, history of rheumatoid arthritis who is on biological agent also had history of thyroid cancer post thyroidectomy and medical management. Patient presented to the emergency department at [facility] complaining of mild upper respiratory associated with cough wheezes along with mild epigastric pain with increase heartburn and indigestion symptom were associated with tightness and pressure in the midsternal area radiating toward the jaw on the left upper side associated with worsening shortness of breath along with lightheadedness and mild palpitation. Symptoms were not relieved with aspirin according to patient with her history of coronary artery disease post surgery in the past and a very high risk factor ended up being hospitalized. Patient CK and troponin came back negative EKG did not show any change in her ST waves. Apparently patient recently was changed to a talent consultant in [facility] which made an appointment for follow-up in the next few weeks for testing. Patient will be kept in the Hospital CK with troponin 3 will be done if they' re negative patient will be released from the hospital to follow with her talent consultant for further testing. If troponin is elevated discussion with the patient whether once to be transfer close to her talent consultant or agreeable to do heart catheter in town. Also patient wants to go home late in the afternoon for troponin are negative it 's her birthday tomorrow and once to be home for the night. 03/25: Patient was planned for discharge of her third troponin was negative with the third one came back at 0.064 and her discharge was held and she was recommended by cardiology for heart catheterization planned for Tuesday. The patient did discuss with Dr. Lopez her talent consultant and she had recommended that the patient stay here and have heart catheterization on Tuesday. Patient is currently pain-free. 03/26: Patient has been transferred to the selective care unit. Additional repeat troponins have been 0.123, 0.1 and 0.095. Patient is scheduled for heart catheterization for Tuesday. Echocardiogram reveals EF of 50-55% with apical anterior LV and apical septum LV wall motion hypokinetic, mild aortic valve sclerosis, mild mitral regurgitation, mild tricuspid regurgitation, no pulmonary hypertension. Blood sugars this morning have been elevated with maximum 313 but patient is managing on her pump and giving herself bolus. Cholesterol 160, LDL 103, HDL 45, triglycerides 61. Objective - Vital Signs Vital signs: Vital Signs Temp 97.5 F L 03/26/18 04:00 Pulse 71 03/26/18 04:00 Resp 18 03/26/18 04:00 BP 153/70 03/26/18 04:00 Pulse Ox 100 03/26/18 04:00 Intake & Output 03/25/18 03/26/18 03/26/18 18:59 06:59 18:59 Intake Total 618.29 377.37 Balance 618.29 377.37 Weight 63.5 kg Intake: Intake, IV Titration 178.29 377.37 Amount Heparin Sod,Pork in 0.45% 178.29 377.37 NaCl 25,000 unit In 0.45 % NaCl 1 500ml.bag @ 12 UNITS/KG/HR 15.02 mls/hr IV .Q24H PERRY Rx#: [id number] Oral 440 Other: Voiding Method Toilet Toilet # Voids 3 1 - Exam Gen: This is a 58-year-old female patient. Today she is very tearful and crying as she is concerned about her heart and need for heart catheterization with elevated troponin on the third trial. HEENT: Head is atraumatic, normocephalic. Pupils equal, round. Sclerae is anicteric. NECK: Supple. No JVD. No lymphadenopathy. No thyromegaly. LUNGS: Clear to auscultation. No wheezes or rhonchi. No intercostal retractions. HEART: Regular rate and rhythm. No murmur. ABDOMEN: Soft. Bowel sounds are present. No masses. No tenderness. EXTREMITIES: No pedal edema. No calf tenderness. NEUROLOGICAL: Patient is awake, alert and oriented x3. Cranial nerves 2 through 12 are grossly intact. - Labs CBC & Chem 7: 03/24/18 02:11 03/26/18 06:47 Labs: Abnormal Lab Results - Last 24 Hours (Table) 03/25/18 03/25/18 03/25/18 Range/Units 08:25 08:25 12:09 APTT 41.8 H (22.0-30.0) sec BUN (7-17) mg/dL Glucose (74-99) mg/dL POC Glucose (mg/dL) 181 H (75-99) mg/dL Troponin I 0.123 H* (0.000-0.034) ng/mL 03/25/18 03/25/18 03/25/18 Range/Units 14:55 16:40 18:16 APTT 68.3 H (22.0-30.0) sec BUN (7-17) mg/dL Glucose (74-99) mg/dL POC Glucose (mg/dL) 195 H (75-99) mg/dL Troponin I 0.100 H* (0.000-0.034) ng/mL 03/25/18 03/25/18 03/26/18 Range/Units 20:22 21:02 06:23 APTT (22.0-30.0) sec BUN (7-17) mg/dL Glucose (74-99) mg/dL POC Glucose (mg/dL) 313 H 219 H (75-99) mg/dL Troponin I 0.095 H* (0.000-0.034) ng/mL 03/26/18 03/26/18 Range/Units 06:47 06:47 APTT 179.9 H* (22.0-30.0) sec BUN 18 H (7-17) mg/dL Glucose 243 H (74-99) mg/dL POC Glucose (mg/dL) (75-99) mg/dL Troponin I (0.000-0.034) ng/mL Assessment and Plan Plan: 1. Non-ST elevated myocardial infarction. Patient has been seen by Dr. Aguilera with plan for heart catheterization on Tuesday. Patient has discussed with her own talent consultant and has decided to stay at [facility]. Echocardiogram as above. Continue aspirin, Plavix, heparin drip, Imdur, Cozaar, Lopressor. 2 CAD: Post CABG has been seeing cardiology. 3 rheumatoid arthritis: Has been on biological agent which is Cimzia once a month still seen transportation dispatcher regularly. 4 type 1 diabetes: On insulin pump, patient blood sugar was quite bit high yesterday secondary to steroid use and diet, blood sugar today is much better continue insulin pump the same rate continue Accu-Chek with sliding scale. 5 hypertension: Continue metoprolol and losartan. 6 hyperlipidemia: Remain on atorvastatin 40 mg daily. 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 8 recent history of CAD mostly mild bronchitis was placed on Medrol Dosepak and medication with Dr. Huertas. 9 GI prophylaxis: Patient will be on pantoprazole 40 mg daily. 10 DVT prophylaxis: If remain in the hospital past 24 hours we'll do heparin subcutaneous otherwise patient will have knee-high [place] hose and early mobilization. CODE STATUS: Full code. Discharge plan: return home Impression and plan of care have been directed as dictated by the signing physician. Vero Montes nurse practitioner acting as scribe for signing physician.
[2018-03-26 12:16] LABS: Glucose,Whole Blood 135 mg/dL (75-99)
[2018-03-26] MEDS ORDERED: ATORVASTATIN 80 MG TAB PO STA (13:19)
[2018-03-26] MEDS ORDERED: ASPIRIN 325 MG TAB PO STA (13:19)
[2018-03-26] MEDS ORDERED: NITROGLYCERIN SL TABS 0.4 MG TAB SUBLINGUAL PRN (13:19)
[2018-03-26] MEDS ORDERED: ALPRAZolam 0.25 MG TAB PO PRN (13:19)
[2018-03-26] MEDS ORDERED: ALPRAZolam 0.5 MG TAB PO PRN (13:19)
[2018-03-26] MEDS ORDERED: SODIUM CHLORIDE 0.9% 1,000 ML in EMPTY BAG 1 BAG IV ONE (13:19)
--- NOTE | 2018-03-26 14:04 | PN ---
PROGRESS NOTE Mrs. Diaz is a 58-year-old female with known history of coronary artery disease status post coronary artery bypass grafting who presented with upper respiratory infection and was found to have mild elevation of the troponin. She is feeling well this morning. She denies any symptoms of chest pain. She denies any dizziness or palpitations. She denies any nausea. She denies any cough. She feels better overall. She continues to be at this time on aspirin once a day, Lipitor 80 mg daily, Plavix 75 mg daily, IV heparin, insulin, isosorbide mononitrate 30 mg daily, losartan 50 mg daily, metoprolol tartrate 12.5 mg twice a day. PHYSICAL EXAMINATION: Blood pressure 118/58 with a heart rate in the 60s. LUNGS: Clear. HEART: Regular rate and rhythm S1, S2. No S3. No rub. ABDOMEN: Soft and nontender. EXTREMITIES: No edema. LAB DATA: BUN and creatinine of 18 and 0.63. Her peak troponin is 0.1. Her echocardiogram revealed preserved left ventricular size and systolic function. IMPRESSION: 1. Unstable angina with non-ST elevation myocardial infarction. 2. Status post coronary artery bypass grafting. 3. Hypertension. 4. Hyperlipidemia. 5. Diabetes mellitus. RECOMMENDATION: We will proceed with coronary angiography tomorrow to assess her status and guide her treatment and depending on results of testing, further recommendations will be made. MMODL / IJN: [id number] /
[2018-03-26 16:44] LABS: Glucose,Whole Blood 285 mg/dL (75-99)
[2018-03-26 21:09] LABS: Glucose,Whole Blood 219 mg/dL (75-99)
[2018-03-27 06:18] LABS: Glucose,Whole Blood 204 mg/dL (75-99)
[2018-03-27 06:35] LABS: Glucose,Whole Blood 287 mg/dL (75-99)
[2018-03-27] MEDS: HEPARIN SOD,PORK IN 0.45% NACL 25,000 UNIT in 0.45% NACL 1 500ML.BAG IV SCH (06:35)
[2018-03-27] MEDS: SODIUM CHLORIDE 0.9% 1,000 ML IV SCH (06:35)
[2018-03-27] MEDS: INSULIN PUMP MEAL BOLUS 1 UNIT MISC MISCELLANE SCH ×4 (06:36→21:33)
[2018-03-27] MEDS: ISOSORBIDE MONONITRATE ER 30 MG TAB.ER.24H PO SCH (06:38)
[2018-03-27] MEDS: ATORVASTATIN 80 MG TAB PO SCH (06:38)
[2018-03-27] MEDS: LOSARTAN 50 MG TAB PO SCH (06:38)
[2018-03-27] MEDS: PANTOPRAZOLE 40 MG/10 ML VIAL IVP SCH (06:38)
[2018-03-27] MEDS: LEVOTHYROXINE 100 MCG TAB PO SCH (06:38)
[2018-03-27] MEDS: METOPROLOL TARTRATE 12.5 MG TAB PO SCH ×2 (06:38→21:33)
[2018-03-27] MEDS: CLOPIDOGREL 75 MG TAB PO SCH (06:38)
[2018-03-27] MEDS: ASPIRIN 325 MG TAB PO SCH (06:38)
[2018-03-27] MEDS ORDERED: diphenhydrAMINE 50 MG/ML 1 ML VIAL IVP ONE (10:43)
[2018-03-27] MEDS ORDERED: LIDOCAINE 1% INJ 10MG/ML (20 ML MDV) SQ ONE ×2 (10:43→10:45)
[2018-03-27] MEDS ORDERED: fentaNYL (PF) 50 MCG/ML 2 ML AMP IVP ONE (10:46)
[2018-03-27] MEDS ORDERED: IV FLUID CONTINUATION 400 ML IV ONE (10:48)
[2018-03-27] MEDS ORDERED: NITROGLYCERIN SL TABS 0.4 MG TAB SUBLINGUAL ONE (10:48)
[2018-03-27] MEDS ORDERED: PRASUGREL 10 MG TAB PO ONE (11:02)
[2018-03-27] MEDS ORDERED: BIVALIRUDIN 250 MG VIAL IV ONE (11:03)
[2018-03-27] MEDS ORDERED: NITROGLYCERIN 1000MCG/10ML SYRINGE INTRACORON ONE (11:05)
[2018-03-27] MEDS ORDERED: BIVALIRUDIN 250 MG in SODIUM CHLORIDE 0.9% 50 ML IV ONE (11:05)
[2018-03-27] MEDS ORDERED: MIDAZOLAM 2 MG/2 ML VIAL IV ONE (11:07)
[2018-03-27] MEDS ORDERED: IOPAMIDOL-370 100ML BTL INJ ONE (11:32)
[2018-03-27] MEDS ORDERED: IOPAMIDOL-370 125ML BTL INJ ONE (11:32)
[2018-03-27] MEDS ORDERED: ATROPINE SULFATE 0.1 MG/ML 10ML SYRINGE IV PRN (11:46)
[2018-03-27] MEDS ORDERED: NITROGLYCERIN SL TABS 0.4 MG TAB SUBLINGUAL PRN (11:46)
[2018-03-27] MEDS ORDERED: MAG HYDROX/AL HYDROX/SIMETH 30 ML CUP PO PRN (11:46)
[2018-03-27] MEDS ORDERED: RX INFO: IV CONTRAST WAS GIVEN 1 EACH MISC MISCELLANE PRN (11:46)
[2018-03-27] MEDS ORDERED: ZOLPIDEM 5 MG TAB PO PRN (11:46)
[2018-03-27] MEDS ORDERED: SODIUM CHLORIDE 0.9% 1,000 ML IV SCH (12:00)
[2018-03-27 12:01] LABS: Glucose,Whole Blood 298 mg/dL (75-99)
--- NOTE | 2018-03-27 12:20 | CC ---
CARDIAC CATHETERIZATION REPORT Mrs. Diaz is a 58-year-old female with known history of hypertension, hyperlipidemia, diabetes mellitus, and coronary artery disease status post coronary artery bypass grafting in 2010, who presented with symptoms of upper respiratory infection with chest discomfort and jaw discomfort consistent with angina pectoris and mild elevation of her troponin. In view of that, recommendation was made regarding cardiac catheterization. The procedure, its risks and complications were discussed with the patient who is in full understanding and agreement. PROCEDURE: Patient was brought to the union laborer in a fasting semi-sedated state after receiving fentanyl and Benadryl and achieving moderate conscious sedated state. Using Xylocaine anesthesia in the Seldinger technique, a 6-Bhutanese sheath was introduced in the right femoral artery. Selective right and left coronary angiography performed using 6- Bhutanese, right and left Hakeem catheter. Multiple views of the coronary artery including hemiaxial views were obtained. The 6-Bhutanese right Hakeem catheter was used to cannulate the KENNY to LAD, saphenous vein graft to diagonal and to the obtuse marginal branch. Images of the grafts were obtained. Following that, angioplasty and stenting was performed. Following that, a 6-Bhutanese tight pigtail catheter was introduced in the left ventricle and a 30-degree MAYA view of the left ventricle was obtained. Following that, catheter and sheaths were removed. Hemostasis was obtained with deployment of an Angio-Seal. There was no immediate complication. Patient was returned to her room in stable condition. FINDINGS: LEFT MAIN: This is a very short size vessel bifurcating in left circumflex and , left anterior descending artery. Left main coronary artery has a 30% to 40% plaque. LEFT ANTERIOR DESCENDING ARTERY: This vessel gives rise to a diagonal branch. The LAD is diffusely disease proximal to that with no high-grade stenosis. Beyond the diagonal origin, the LAD is totally occluded with no antegrade flow. LEFT CIRCUMFLEX: This is a dominant vessel large in caliber distally bifurcating PDA and posterolateral segment and branches. The left circumflex proximally is calcified and has a 95% stenosis in the long segment. The rest of the vessel has no high-grade stenosis. RIGHT CORONARY ARTERY: This vessel is a small nondominant vessel that has a 99% stenosis proximally. The vessel is very small in caliber. KENNY to LAD: The distal anastomotic site is patent. The flow into the LAD is brisk. There is no evidence of high-grade stenosis. SAPHENOUS VEIN GRAFT TO THE FIRST OBTUSE MARGINAL BRANCH: The proximal and distal anastomotic sites are patent. The flow in the obtuse marginal branch is brisk. There is no evidence of obstructive disease. SAPHENOUS VEIN GRAFT TO THE DIAGONAL BRANCH: This graft is totally occluded at the ostium. LEFT VENTRICULOGRAM: Left ventriculogram is performed in the 30-degree MAYA view and revealed normal left ventricular size and systolic function. Ejection fraction is 60%. There was no significant mitral regurgitation. HEMODYNAMICS: There was no gradient across the aortic valve. The left ventricular end- diastolic pressure was 12 to 16 mmHg. CONCLUSION: 1. Totally occluded mid left anterior descending artery. 2. Totally occluded first obtuse marginal branch. 3. Severe disease in a small right coronary artery. 4. Patent KENNY to LAD. 5. Patent saphenous vein graft to the obtuse marginal branch 1. 6. Occluded saphenous vein graft to the diagonal branch. 7. Critical stenosis in the proximal seneca circumflex. 8. Normal left ventricular size and systolic function. RECOMMENDATION: In view of finding anatomy, I recommend proceeding with angioplasty and stenting of the left circumflex. The procedure, its risks and complications were discussed with the patient who is in full understanding and agreement. MMODL / IJN: [id number] /
--- NOTE | 2018-03-27 12:56 | PTCA ---
PERCUTANEOUSTRANS CORORONARY ANGIOGRAPHY Mrs. Diaz is a 58-year-old female who presented with evidence of non ST- segment elevation myocardial infarction, underwent cardiac catheterization, was found to have critical stenosis involving the proximal left circumflex. In view of that, recommendation regarding angioplasty and stenting. The procedure as well as the risks and the complications were discussed with the patient who is in full understanding and agreement. PROCEDURE: A 6-Colombian FR4 guiding catheter introduced in the system after cannulating the left main a 0.014 balanced medium weight J-wire was advanced across the lesion, positioned distally. Subsequently attempt to advance a 2.5 x 23 mm Xience Alpine stent were unsuccessful. The stent was removed and a 2.5 x 12 mm Euphora balloon was advanced and inflation up to 8 atmospheres were done. After removing the balloon at attempt to advance the stent were unsuccessful that stent was removed and another 0.014 balanced medium weight J-wire was advanced next to the first one in a jessenia fashion. Subsequently the stent was advanced in position. The wire was withdrawn and introduced into the LAD. Subsequently, the stent was deployed and post dilated at 16 atmospheres. Following that the balloon was removed and a 2.75 x 50 mm NC Euphora balloon was advanced and one inflation at 12 atmospheres was done. After the last inflation, after appropriate wait, the balloon and the guidewire withdrawn back in the guiding catheter. Images were obtained, repeated. Those images reveal stable successful stenting. At that point, the guiding catheter, the balloon and the guidewire were removed and left ventriculogram was performed. Following that, catheter and sheath were removed. Hemostasis was obtained with deployment of an Angio-Seal. There was no immediate complication. The patient was returned to her room in stable condition. Of note, the patient received Angiomax per protocol as well as oral loading dose of Effient. She had no significant chest pain during the inflation. RESULTS: Successful stenting of the proximal left circumflex and the calcified lesion with reduction of stenosis from 95% to 0%. RECOMMENDATION: The patient will be continued on aspirin, Effient, statin and beta robina. The importance of dual antiplatelet treatment were discussed with the patient and her family and they are in full understanding and agreement. DURATION OF PROCEDURE: 60 minutes. MMODL / IJN: [id number] /
--- NOTE | 2018-03-27 12:59 | LTR ---
March 27, 2018 Re: Mia Aguilartony Dear Dr. Huertas: I had the opportunity to performed cardiac catheterization and coronary angioplasty and stenting on Mrs. Diaz at [facility] on the 27 of March and a full copy of the procedure note will be forwarded to you. In brief, she underwent successful stenting of the proximal left circumflex using a drug-eluting stent. I am hopeful that this procedure will stabilized her status. Thank you again for allowing me the opportunity to participate in her care. Please feel free to call for any questions. Sincerely yours, MD TREVOR MonrealL / NATEN: [id number] /
--- NOTE | 2018-03-27 13:47 | P.PN ---
Subjective Progress Note Date: 03/27/18 57-year-old female one of Dr. Deras patient with past medical history of CAD post CABG, history of diabetes type 1 on insulin pump, history of rheumatoid arthritis who is on biological agent also had history of thyroid cancer post thyroidectomy and medical management. Patient presented to the emergency department at [facility] complaining of mild upper respiratory associated with cough wheezes along with mild epigastric pain with increase heartburn and indigestion symptom were associated with tightness and pressure in the midsternal area radiating toward the jaw on the left upper side associated with worsening shortness of breath along with lightheadedness and mild palpitation. Symptoms were not relieved with aspirin according to patient with her history of coronary artery disease post surgery in the past and a very high risk factor ended up being hospitalized. Patient CK and troponin came back negative EKG did not show any change in her ST waves. Apparently patient recently was changed to a edge plugger in [facility] which made an appointment for follow-up in the next few weeks for testing. Patient will be kept in the Hospital CK with troponin 3 will be done if they' re negative patient will be released from the hospital to follow with her edge plugger for further testing. If troponin is elevated discussion with the patient whether once to be transfer close to her edge plugger or agreeable to do heart catheter in town. Also patient wants to go home late in the afternoon for troponin are negative it 's her birthday tomorrow and once to be home for the night. 03/25: Patient was planned for discharge of her third troponin was negative with the third one came back at 0.064 and her discharge was held and she was recommended by cardiology for heart catheterization planned for Tuesday. The patient did discuss with Dr. Lopez her edge plugger and she had recommended that the patient stay here and have heart catheterization on Tuesday. Patient is currently pain-free. 03/26: Patient has been transferred to the selective care unit. Additional repeat troponins have been 0.123, 0.1 and 0.095. Patient is scheduled for heart catheterization for Tuesday. Echocardiogram reveals EF of 50-55% with apical anterior LV and apical septum LV wall motion hypokinetic, mild aortic valve sclerosis, mild mitral regurgitation, mild tricuspid regurgitation, no pulmonary hypertension. Blood sugars this morning have been elevated with maximum 313 but patient is managing on her pump and giving herself bolus. Cholesterol 160, LDL 103, HDL 45, triglycerides 61. 7/23: Patient underwent a heart catheterization with Dr. Aguilera is shown a totally occluded mid left anterior descending artery, totally occluded first obtuse marginal branch, severe disease and small right coronary artery, patent KENNY to LAD, patent saphenous vein graft to the obtuse marginal branch one, occluded saphenous vein graft to the diagonal branch, critical skin stenosis in the proximal tyonek circumflex, normal left ventricle size and systolic function. She had stenting of the proximal left circumflex and calcified lesion with reduction of stenosis from 95% to 0% with Dr. Aguilera today. Plavix has been changed to Effient. Anticipate discharge home tomorrow. Objective - Vital Signs Vital signs: Vital Signs Temp 97.9 F 03/27/18 08:51 Pulse 64 03/27/18 08:51 Resp 18 03/27/18 08:51 BP 126/60 03/27/18 08:51 Pulse Ox 98 03/27/18 08:51 Intake & Output 03/26/18 03/27/18 03/27/18 18:59 06:59 18:59 Intake Total 440.87 1025 Output Total 300 Balance 140.87 1025 Weight 62.9 kg Intake: Intake, IV Titration 440.87 315 Amount Heparin Sod,Pork in 0.45% 377.37 NaCl 25,000 unit In 0.45 % NaCl 1 500ml.bag @ 12 UNITS/KG/HR 15.02 mls/hr IV .Q24H [facility] Rx#: [id number] Sodium Chloride 0.9% 1, 315 000 ml @ 20 mls/hr IV . Q24H [facility] Rx#:[id number] Sodium Chloride 0.9% 1, 63.5 000 ml In Empty Bag 1 bag @ 1 ML/KG/HR 63.5 mls/hr IV .[id number] ONE Rx#: [id number] Oral 710 Output: Urine 300 Other: Voiding Method Toilet Toilet Toilet # Voids 2 1 - Exam Gen: This is a 58-year-old female patient. Today she is very tearful and crying as she is concerned about her heart and need for heart catheterization with elevated troponin on the third trial. HEENT: Head is atraumatic, normocephalic. Pupils equal, round. Sclerae is anicteric. NECK: Supple. No JVD. No lymphadenopathy. No thyromegaly. LUNGS: Clear to auscultation. No wheezes or rhonchi. No intercostal retractions. HEART: Regular rate and rhythm. No murmur. ABDOMEN: Soft. Bowel sounds are present. No masses. No tenderness. EXTREMITIES: No pedal edema. No calf tenderness. NEUROLOGICAL: Patient is awake, alert and oriented x3. Cranial nerves 2 through 12 are grossly intact. - Labs CBC & Chem 7: 03/24/18 02:11 03/26/18 06:47 Labs: Abnormal Lab Results - Last 24 Hours (Table) 03/24/18 03/24/18 03/26/18 Range/Units 05:11 08:27 11:57 APTT (22.0-30.0) sec POC Glucose (mg/dL) 287 H 135 H (75-99) mg/dL Hemoglobin A1c 11.8 H (4.0-6.0) % 03/26/18 03/26/18 03/26/18 Range/Units 15:03 16:19 21:02 APTT 66.3 H (22.0-30.0) sec POC Glucose (mg/dL) 285 H 219 H (75-99) mg/dL Hemoglobin A1c (4.0-6.0) % 03/27/18 03/27/18 Range/Units 06:11 06:23 APTT 46.7 H (22.0-30.0) sec POC Glucose (mg/dL) 204 H (75-99) mg/dL Hemoglobin A1c (4.0-6.0) % Assessment and Plan Plan: 1. Non-ST elevated myocardial infarction. Patient has been seen by Dr. Aguilera with plan for heart catheterization on Tuesday. Patient has discussed with her own edge plugger and has decided to stay at [facility]. Echocardiogram as above. Continue aspirin, Effient, Imdur, Cozaar, Lopressor. 2 CAD: Post CABG has been seeing cardiology. 3 rheumatoid arthritis: Has been on biological agent which is Cimzia once a month still seen pipe setter regularly. 4 type 1 diabetes: On insulin pump, patient blood sugar was quite bit high yesterday secondary to steroid use and diet, blood sugar today is much better continue insulin pump the same rate continue Accu-Chek with sliding scale. 5 hypertension: Continue metoprolol and losartan. 6 hyperlipidemia: Remain on atorvastatin 40 mg daily. 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 8 recent history of CAD mostly mild bronchitis was placed on Medrol Dosepak and medication with Dr. Huertas. 9 GI prophylaxis: Patient will be on pantoprazole 40 mg daily. 10 DVT prophylaxis: If remain in the hospital past 24 hours we'll do heparin subcutaneous otherwise patient will have knee-high [place] hose and early mobilization. CODE STATUS: Full code. Discharge plan: return home on Tuesday. Impression and plan of care have been directed as dictated by the signing physician. Vero Montes nurse practitioner acting as scribe for signing physician.
[2018-03-27 15:22] VITALS: BMI 26.2
[2018-03-27 16:54] LABS: Glucose,Whole Blood 85 mg/dL (75-99)
[2018-03-27 20:29] VITALS: RESP 16; TEMP 98.1
[2018-03-27] MEDS: MELATONIN 5 MG TABLET PO SCH (21:14)
[2018-03-27 21:21] LABS: Glucose,Whole Blood 206 mg/dL (75-99)
[2018-03-28] MEDS: SODIUM CHLORIDE 0.9% 1,000 ML IV SCH (06:02)
[2018-03-28 06:03] LABS: Glucose,Whole Blood 258 mg/dL (75-99)
[2018-03-28] MEDS: LEVOTHYROXINE 100 MCG TAB PO SCH (06:04)
[2018-03-28] MEDS: INSULIN PUMP MEAL BOLUS 1 UNIT MISC MISCELLANE SCH (06:04)
[2018-03-28 06:05] LABS: Anion Gap 6 mmol/L; Blood Urea Nitrogen 17 mg/dL (7-17); Carbon Dioxide 26 mmol/L (22-30); Chloride 103 mmol/L (98-107); Glucose 236 mg/dL (74-99); Potassium 4.5 mmol/L (3.5-5.1); Sodium 135 mmol/L (137-145)
[2018-03-28] MEDS ORDERED: ASPIRIN 81 MG PO SCH (09:00)
[2018-03-28] MEDS ORDERED: PRASUGREL 10 MG TAB PO SCH (09:00)
[2018-03-28 09:25] VITALS: BP 120/64; PULSE 68
[2018-03-28] MEDS: PANTOPRAZOLE 40 MG/10 ML VIAL IVP SCH (09:57)
--- NOTE | 2018-03-28 09:57 | PN ---
PROGRESS NOTE DATE OF SERVICE: 03/28/2018. HISTORY: Ms. Diaz is a 58-year-old female who presented with upper respiratory infection and evidence of non-STEMI. She underwent cardiac catheterization, was found to have patent saphenous vein graft to the OM, patent KENNY to LAD and occluded SV graft to the diagonal with critical stenosis in the proximal left circumflex. She underwent successful stenting of that vessel using a drug-eluting stent. She is doing quite well this morning. She is denying any chest pain. Her breathing has been stable. She denies any dizziness or palpitations. She has been ambulating without difficulty. She continues to be on aspirin once a day, insulin, isosorbide mononitrate 30 mg daily, losartan 50 mg daily, metoprolol tartrate 12.5 mg twice a day, and Effient 10 mg daily. PHYSICAL EXAMINATION: Blood pressure 120/60 with a heart in the 60s. LUNGS: Clear. HEART: Regular rate and rhythm. S1, S2. No S3. No rub. ABDOMEN: Soft nontender. Right groin no hematoma. EKG no acute changes. LAB DATA: BUN and creatinine 17 and 0.7, potassium 4.5. IMPRESSION: 1. Status post stenting of the left circumflex. 2. Status post non-ST elevation myocardial infarction. 3. Status post coronary bypass graft in 2010. 4. Hypertension. 5. Hyperlipidemia. 6. Diabetes mellitus. RECOMMENDATION: Patient will be discharged home today and follow up with her primary hem inspector at [facility]. MMODL / IJN: [id number] /
[2018-03-28] MEDS: LOSARTAN 50 MG TAB PO SCH (09:58)
[2018-03-28] MEDS: ISOSORBIDE MONONITRATE ER 30 MG TAB.ER.24H PO SCH (09:58)
[2018-03-28] MEDS: ATORVASTATIN 80 MG TAB PO SCH (09:58)
[2018-03-28] MEDS: METOPROLOL TARTRATE 12.5 MG TAB PO SCH (09:58)
--- NOTE | 2018-03-28 13:14 | P.DS ---
Providers Date of admission: 03/25/18 12:14 Expected date of discharge: 03/28/18 Attending physician: Hamlet Casillas Consults: 03/24/18 05:26 Consult Physician Routine Consulting Provider: Princess Foreman Consult Reason/Comments: chest pain Do you want consulting provider notified?: Yes, Notify in am Placement Type Exists?: Yes 03/27/18 11:46 Consult Physician Routine Consulting Provider: Princess Foreman Consult Reason/Comments: Post Interventional patient Do you want consulting provider notified?: Already Contacted [facility]: 57-year-old female one of Dr. Deras patient with past medical history of CAD post CABG, history of diabetes type 1 on insulin pump, history of rheumatoid arthritis who is on biological agent also had history of thyroid cancer post thyroidectomy and medical management. Patient presented to the emergency department at [facility] complaining of mild upper respiratory associated with cough wheezes along with mild epigastric pain with increase heartburn and indigestion symptom were associated with tightness and pressure in the midsternal area radiating toward the jaw on the left upper side associated with worsening shortness of breath along with lightheadedness and mild palpitation. Symptoms were not relieved with aspirin according to patient with her history of coronary artery disease post surgery in the past and a very high risk factor ended up being hospitalized. Patient CK and troponin came back negative EKG did not show any change in her ST waves. Apparently patient recently was changed to a survey associate in [facility] which made an appointment for follow-up in the next few weeks for testing. Patient will be kept in the Hospital CK with troponin 3 will be done if they' re negative patient will be released from the hospital to follow with her survey associate for further testing. If troponin is elevated discussion with the patient whether once to be transfer close to her survey associate or agreeable to do heart catheter in town. Also patient wants to go home late in the afternoon for troponin are negative it 's her birthday tomorrow and once to be home for the night. 03/25: Patient was planned for discharge of her third troponin was negative with the third one came back at 0.064 and her discharge was held and she was recommended by cardiology for heart catheterization planned for Tuesday. The patient did discuss with Dr. Lopez her survey associate and she had recommended that the patient stay here and have heart catheterization on Tuesday. Patient is currently pain-free. 03/26: Patient has been transferred to the selective care unit. Additional repeat troponins have been 0.123, 0.1 and 0.095. Patient is scheduled for heart catheterization for Tuesday. Echocardiogram reveals EF of 50-55% with apical anterior LV and apical septum LV wall motion hypokinetic, mild aortic valve sclerosis, mild mitral regurgitation, mild tricuspid regurgitation, no pulmonary hypertension. Blood sugars this morning have been elevated with maximum 313 but patient is managing on her pump and giving herself bolus. Cholesterol 160, LDL 103, HDL 45, triglycerides 61. 03/27: Patient underwent a heart catheterization with Dr. Aguilera is shown a totally occluded mid left anterior descending artery, totally occluded first obtuse marginal branch, severe disease and small right coronary artery, patent KENNY to LAD, patent saphenous vein graft to the obtuse marginal branch one, occluded saphenous vein graft to the diagonal branch, critical skin stenosis in the proximal standing rock circumflex, normal left ventricle size and systolic function. She had stenting of the proximal left circumflex and calcified lesion with reduction of stenosis from 95% to 0% with Dr. Aguilera today. Plavix has been changed to Effient. Anticipate discharge home tomorrow. 03/28: Patient has been cleared by cardiology for discharge home. Patient will be discharged in stable condition. Discharge diagnoses: 1. Non-ST elevated myocardial infarction. 2 CAD: Post CABG has been seeing cardiology. 3 rheumatoid arthritis: Has been on biological agent which is Cimzia 4 type 1 diabetes: On insulin pump 5 hypertension 6 hyperlipidemia 7 history of medullary carcinoma of the thyroid post surgery 8 recent history of mild bronchitis Discharge plan: home . Impression and plan of care have been directed as dictated by the signing physician. Vero Montes nurse practitioner acting as scribe for signing physician. Patient Condition at Discharge: Good Plan - Discharge Summary New Discharge Prescriptions: New Aspirin 81 mg PO DAILY chew Prasugrel [Effient] 10 mg PO DAILY #90 tab Atorvastatin [Lipitor] 80 mg PO HS #30 tab Isosorbide Mononitrate ER [Imdur] 30 mg PO DAILY #30 tab.er.24h Metoprolol Tartrate [Lopressor] 12.5 mg PO BID #60 tab Continue Insulin Aspart (For Pump) [NovoLOG (For Pump)] 0.01 unit SQ-PUMP CONTINUOUS Cimzia(Unknown Dose) 1 dose SQ Q30D Albuterol Sulfate [Proair Hfa] 1 - 2 puff INHALATION RT-Q6H PRN PRN Reason: Shortness Of Breath Levothyroxine Sodium [Synthroid] 100 mcg PO MOTUWETHFRSA Dexamethasone [Hexadrol] 4 mg PO TID Codeine Phosphate/Guaifenesin [Cheratussin AC Syrup] 5 ml PO HS Losartan [Cozaar] 50 mg PO DAILY #0 Discontinued Metoprolol Succinate [Toprol XL] 25 mg PO DAILY Atorvastatin [Lipitor] 40 mg PO HS Discharge Medication List Cimzia(Unknown Dose) 1 dose SQ Q30D 04/14/17 [History] Insulin Aspart (For Pump) [NovoLOG (For Pump)] 0.01 unit SQ-PUMP CONTINUOUS 06/21 [History] Albuterol Sulfate [Proair Hfa] 1 - 2 puff INHALATION RT-Q6H PRN 03/24/18 [ History] Codeine Phosphate/Guaifenesin [Cheratussin AC Syrup] 5 ml PO HS 03/24/18 [ History] Dexamethasone [Hexadrol] 4 mg PO TID 03/24/18 [History] Levothyroxine Sodium [Synthroid] 100 mcg PO MOTUWETHFRSA 03/24/18 [History] Losartan [Cozaar] 50 mg PO DAILY #0 03/24/18 [Rx] Aspirin 81 mg PO DAILY chew 03/28/18 [Rx] Atorvastatin [Lipitor] 80 mg PO HS #30 tab 03/28/18 [Rx] Isosorbide Mononitrate ER [Imdur] 30 mg PO DAILY #30 tab.er.24h 03/28/18 [Rx] Metoprolol Tartrate [Lopressor] 12.5 mg PO BID #60 tab 03/28/18 [Rx] Prasugrel [Effient] 10 mg PO DAILY #90 tab 03/28/18 [Rx] Follow up Appointment(s)/Referral(s): Rae Lopez DO [REFERRING] - 04/10/18 8:30 am (Serials Librarian) Colin Huertas MD [Primary Care Provider] - 03/29/18 11:30 am Patient Instructions/Handouts: *Surgery [facility] - After Heart Catheterization - Inventory Specialist Instructions, Heart Healthy Diet (DC), Coronary Intravascular Stent Placement (DC) Discharge Disposition: HOME SELF-CARE
== END 2018-03-28 11:33 | disposition home or self-care (01) | DRG 247 ==
LOC: EC 01:37 → INTOOBSV 04:25 → 3OBS 04:25 → OBSVTOIN 03-25 12:14 → 6SEL 03-25 16:21
PROVIDERS: ADMIT Internal Medicine Geriatric Medicine; ATTEND Internal Medicine Geriatric Medicine
PROC: B2111ZZ Fluoroscopy of Multiple Coronary Arteries using Low Osmolar Contrast (ICD-10-PCS; 2018-03-27)
PROC: B2131ZZ Fluoroscopy of Multiple Coronary Artery Bypass Grafts using Low Osmolar Contrast (ICD-10-PCS; 2018-03-27)
PROC: B2151ZZ Fluoroscopy of Left Heart using Low Osmolar Contrast (ICD-10-PCS; 2018-03-27)
PROC: 4A023N7 Measurement of Cardiac Sampling and Pressure, Left Heart, Percutaneous Approach (ICD-10-PCS; principal; 2018-03-27 10:16)
PROC: 027034Z Dilation of Coronary Artery, One Artery with Drug-eluting Intraluminal Device, Percutaneous Approach (ICD-10-PCS; 2018-03-28)
DX: I21.4 Non-ST elevation (NSTEMI) myocardial infarction (principal); I25.810 Atherosclerosis of coronary artery bypass graft(s) without angina pectoris; E78.00 Pure hypercholesterolemia, unspecified; E89.0 Postprocedural hypothyroidism; I08.3 Combined rheumatic disorders of mitral, aortic and tricuspid valves; I10 Essential (primary) hypertension; I25.84 Coronary atherosclerosis due to calcified coronary lesion; Z95.1 Presence of aortocoronary bypass graft; Z79.4 Long term (current) use of insulin; Z96.41 Presence of insulin pump (external) (internal); I25.2 Old myocardial infarction; J44.9 Chronic obstructive pulmonary disease, unspecified; M06.9 Rheumatoid arthritis, unspecified; T38.0X5A Adverse effect of glucocorticoids and synthetic analogues, initial encounter; E10.65 Type 1 diabetes mellitus with hyperglycemia; Z79.899 Other long term (current) drug therapy; Z80.3 Family history of malignant neoplasm of breast; Z82.49 Family history of ischemic heart disease and other diseases of the circulatory system; Z83.3 Family history of diabetes mellitus; Z85.850 Personal history of malignant neoplasm of thyroid; Z80.8 Family history of malignant neoplasm of other organs or systems; Z88.1 Allergy status to other antibiotic agents; Z88.0 Allergy status to penicillin
CPT/HCPCS: 71045; 80048; 80053; 80061; 82150; 82550; 82553; 82977; 83036; 83690; 84484; 85025; 85379; 85610; 85730; 93306; 93459

== ENCOUNTER → 2018-06-23 | Outpatient (CLI) | payer BC ==
[2018-06-23 08:19] LABS: ALT 30 U/L (9-52); AST 21 U/L (14-36); Albumin 3.9 g/dL (3.5-5.0); Alkaline Phosphatase 103 U/L (38-126); Anion Gap 10 mmol/L; Blood Urea Nitrogen 22 mg/dL (7-17); Calcium 9.5 mg/dL (8.4-10.2); Carbon Dioxide 25 mmol/L (22-30); Chloride 103 mmol/L (98-107); Cholesterol 148 mg/dL (<200); Glucose 286 mg/dL (74-99); HDL Cholesterol 42 mg/dL (40-60); LDL Cholesterol,Calculated 84 mg/dL (0-99); Potassium 4.5 mmol/L (3.5-5.1); Sodium 138 mmol/L (137-145); Total Bilirubin 0.5 mg/dL (0.2-1.3); Total Protein 6.9 g/dL (6.3-8.2); Triglycerides 112 mg/dL (<150)
== END ==
LOC: LABWHC1 06:49
PROVIDERS: ATTEND Nurse Practitioner Family
DX: E78.2 Mixed hyperlipidemia (principal); E89.0 Postprocedural hypothyroidism; E10.65 Type 1 diabetes mellitus with hyperglycemia
CPT/HCPCS: 36415; 80053; 80061; 84443

== ENCOUNTER 2018-08-20 22:06 | Observation (INO) | payer BC ==
[2018-08-20] MEDS ORDERED: SODIUM CHLORIDE 0.9% 1,000 ML IV STA (22:39)
[2018-08-20] MEDS ORDERED: ASPIRIN 81 MG PO STA (22:39)
--- NOTE | 2018-08-20 23:01 | ED ---
General Adult HPI - General Chief complaint: Arrhythmia/Palpitations Stated complaint: Palpitations Time Seen by Provider: 08/20/18 22:27 Source: patient, RN notes reviewed, old records reviewed Mode of arrival: ambulatory Limitations: no limitations - History of Present Illness Initial comments: Patient is a 58-year-old female with a history of hypertension and hyperlipidemia and diabetes, coronary artery disease. She reports that she had coronary artery bypass graft in 2010. She had a recent stent in March 2018. She presents emergency department today with pain with deep in her shoulder blades and jaw discomfort with ambulating. She reports her heart rate also was elevated today with ambulation. Patient states that she did forget to take her blood pressure medications today. Patient's concern of her symptoms seem to large her previous MIs. Patient states that she has not felt well since her previous stenting. She states she feels fatigued more easily. - Related Data Home Medications Medication Instructions Recorded Confirmed Insulin Aspart (For Pump) [NovoLOG 0.01 unit SQ-PUMP CONTINUOUS 04/14/17 (For Pump)] Albuterol Sulfate [Proair Hfa] 1 - 2 puff INHALATION RT-Q6H PRN 03/24/18 Levothyroxine Sodium [Synthroid] 100 mcg PO DAILY 03/24/18 08/20/18 Certolizumab Pegol [Cimzia] 400 mg SQ Q28D 08/20/18 08/20/18 Ezetimibe [Zetia] 10 mg PO DAILY 08/20/18 08/20/18 Montelukast [Singulair] 10 mg PO HS 08/20/18 08/20/18 Nitroglycerin Sl Tabs [Nitrostat] 0.4 mg SUBLINGUAL Q5M PRN 08/20/18 08/20/18 Previous Rx's Medication Instructions Recorded Aspirin 81 mg PO DAILY chew 03/28/18 Atorvastatin [Lipitor] 80 mg PO HS #30 tab 03/28/18 Isosorbide Mononitrate ER [Imdur] 30 mg PO DAILY #30 tab.er.24h 03/28/18 Metoprolol Tartrate [Lopressor] 12.5 mg PO BID #60 tab 03/28/18 Prasugrel [Effient] 10 mg PO DAILY #90 tab 03/28/18 Allergies Allergy/AdvReac Type Severity Reaction Status Date / Time amoxicillin Allergy Nausea & Verified 08/20/18 23:09 Vomiting tetracycline Allergy Rash/Hives Verified 08/20/18 23:09 3-0 Silk Sutures Allergy Cause Uncoded 08/20/18 22:11 Infection Review of Systems ROS Statement: Those systems with pertinent positive or pertinent negative responses have been documented in the HPI. ROS Other: All systems not noted in ROS Statement are negative. Past Medical History Past Medical History: Coronary Artery Disease (CAD), Diabetes Mellitus, Hyperlipidemia, Rheumatoid Arthritis (RA), Thyroid Disorder Additional Past Medical History / Comment(s): pt had medullulary thyroid cancer , diabetic retinopathy, and hypercholesterolemia. History of Any Multi-Drug Resistant Organisms: None Reported Past Surgical History: Breast Surgery, Section, Coronary Bypass/CABG, Orthopedic Surgery Additional Past Surgical History / Comment(s): CABG - triple [address] Boris Austin, Benign breast biopsy; Breast reduction: repair of trigger finger; thyroidectomy 2011, Right knee sx, vectrectomy on left eye, cataract Past Anesthesia/Blood Transfusion Reactions: No Reported Reaction Past Psychological History: No Psychological Hx Reported, Depression Smoking Status: Never smoker Past Alcohol Use History: None Reported Past Drug Use History: None Reported - Past Family History Father Family Medical History: Coronary Artery Disease (CAD), CVA/TIA Additional Family Medical History / Comment(s): Father at age 88 with history of CVA and cardiovascular disease, triple bypass at age 69 Mother Family Medical History: Cancer Additional Family Medical History / Comment(s): breast ca at 66 Brother(s) Additional Family Medical History / Comment(s): Patient has 1 brother that has with history of thyroid medullary cancer, he was a [place] vet with exposure to agent orange and complications. Sister(s) Additional Family Medical History / Comment(s): She has one sister that is alive with history of diabetes mellitus type 2. Patient has 2 children with no major medical problems. General Exam - General Exam Comments Initial Comments: 58-year-old female. Alert and oriented 3. Patient appears in no significant distress. Limitations: no limitations General appearance: alert, in no apparent distress Head exam: Present: atraumatic, normocephalic, normal inspection Eye exam: Present: normal appearance, PERRL, EOMI. Absent: scleral icterus, conjunctival injection, periorbital swelling ENT exam: Present: normal exam, mucous membranes moist Neck exam: Present: normal inspection. Absent: tenderness, meningismus, lymphadenopathy Respiratory exam: Present: normal lung sounds bilaterally. Absent: respiratory distress, wheezes, rales, rhonchi, stridor Cardiovascular Exam: Present: regular rate, normal rhythm, normal heart sounds. Absent: systolic murmur, diastolic murmur, rubs, gallop, clicks GI/Abdominal exam: Present: soft, normal bowel sounds. Absent: distended, tenderness, guarding, rebound, rigid Extremities exam: Present: normal inspection, full ROM, normal capillary refill. Absent: tenderness, pedal edema, joint swelling, calf tenderness Back exam: Present: normal inspection Neurological exam: Present: alert, oriented X3, CN II-XII intact Psychiatric exam: Present: normal affect, normal mood Skin exam: Present: warm, dry, intact, normal color. Absent: rash Course Vital Signs 08/20/18 22:08 Temperature 98.0 F Pulse Rate 82 Respiratory 18 Rate Blood Pressure 180/99 O2 Sat by Pulse 98 Oximetry EKG Findings - EKG Comments: EKG Findings:: EKG performed at 2200 shows R sinus rhythm in. Age undetermined. Ventricular rate of 88 bpm. It was 152 ms. QS duration 16 most seconds. QT QTc is 370/447 ms. Medical Decision Making - Medical Decision Making 58-year-old female with history of coronary artery disease presents today with jaw pain and right shoulder pain. Patient reports symptoms similar to her previous MIs. She did have a cardiac cath and stenting in March. Has history of CABG in 2007. Her historiography professor is Dr. Aguilera. At this time Patient EKG shows no significant changes. Chest x-rays reviewed and unremarkable. Lab work including troponin was negative. With patient's concerns for symptoms I did start the Patient on heparin for unstable angina. I did discuss that we'll recheck her troponin levels including evaluation by cardiology morning. - Lab Data Result diagrams: 08/20/18 22:53 08/20/18 22:53 Lab Results 08/20/18 08/20/18 08/20/18 Range/Units 22:53 22:53 22:53 WBC 8.8 (3.8-10.6) k/uL RBC 4.77 (3.80-5.40) m/uL Hgb 14.3 (11.4-16.0) gm/dL Hct 42.3 (34.0-46.0) % MCV 88.7 (80.0-100.0) fL MCH 30.1 (25.0-35.0) pg MCHC 33.9 (31.0-37.0) g/dL RDW 12.5 (11.5-15.5) % Plt Count 414 (150-450) k/uL Neutrophils % 53 % Lymphocytes % 33 % Monocytes % 6 % Eosinophils % 5 % Basophils % 1 % Neutrophils # 4.6 (1.3-7.7) k/uL Lymphocytes # 2.9 (1.0-4.8) k/uL Monocytes # 0.5 (0-1.0) k/uL Eosinophils # 0.4 (0-0.7) k/uL Basophils # 0.1 (0-0.2) k/uL PT (9.0-12.0) sec INR (<1.2) APTT (22.0-30.0) sec Sodium 137 (137-145) mmol/L Potassium 4.4 (3.5-5.1) mmol/L Chloride 103 (98-107) mmol/L Carbon Dioxide 25 (22-30) mmol/L Anion Gap 9 mmol/L BUN 31 H (7-17) mg/dL Creatinine 0.70 (0.52-1.04) mg/dL Est GFR (CKD-EPI)AfAm >90 (>60 ml/min/1.73 sqM) Est GFR (CKD-EPI)NonAf >90 (>60 ml/min/1.73 sqM) Glucose 365 H (74-99) mg/dL Calcium 9.8 (8.4-10.2) mg/dL Magnesium 1.9 (1.6-2.3) mg/dL Total Bilirubin 0.4 (0.2-1.3) mg/dL AST 31 (14-36) U/L ALT 49 (9-52) U/L Alkaline Phosphatase 121 (38-126) U/L Total Creatine Kinase 87 (30-135) U/L CK-MB (CK-2) 1.0 (0.0-2.4) ng/mL CK-MB (CK-2) Rel Index 1.1 Troponin I <0.012 (0.000-0.034) ng/mL Total Protein 7.1 (6.3-8.2) g/dL Albumin 4.3 (3.5-5.0) g/dL 08/20/18 Range/Units 22:53 WBC (3.8-10.6) k/uL RBC (3.80-5.40) m/uL Hgb (11.4-16.0) gm/dL Hct (34.0-46.0) % MCV (80.0-100.0) fL MCH (25.0-35.0) pg MCHC (31.0-37.0) g/dL RDW (11.5-15.5) % Plt Count (150-450) k/uL Neutrophils % % Lymphocytes % % Monocytes % % Eosinophils % % Basophils % % Neutrophils # (1.3-7.7) k/uL Lymphocytes # (1.0-4.8) k/uL Monocytes # (0-1.0) k/uL Eosinophils # (0-0.7) k/uL Basophils # (0-0.2) k/uL PT 9.6 (9.0-12.0) sec INR 0.9 (<1.2) APTT 21.8 L (22.0-30.0) sec Sodium (137-145) mmol/L Potassium (3.5-5.1) mmol/L Chloride (98-107) mmol/L Carbon Dioxide (22-30) mmol/L Anion Gap mmol/L BUN (7-17) mg/dL Creatinine (0.52-1.04) mg/dL Est GFR (CKD-EPI)AfAm (>60 ml/min/1.73 sqM) Est GFR (CKD-EPI)NonAf (>60 ml/min/1.73 sqM) Glucose (74-99) mg/dL Calcium (8.4-10.2) mg/dL Magnesium (1.6-2.3) mg/dL Total Bilirubin (0.2-1.3) mg/dL AST (14-36) U/L ALT (9-52) U/L Alkaline Phosphatase (38-126) U/L Total Creatine Kinase (30-135) U/L CK-MB (CK-2) (0.0-2.4) ng/mL CK-MB (CK-2) Rel Index Troponin I (0.000-0.034) ng/mL Total Protein (6.3-8.2) g/dL Albumin (3.5-5.0) g/dL 08/20/18 23:13 EKG performed at 2222. Normal sinus rhythm with sinus arrhythmia. Possible left atrial enlargement. Nonspecific ST and T wave abnormality. Abnormal EKG noted. Ventricular rate of 77 bpm. UT interval is 160 ms. QRS duration 92 ms. QT QTc is 44/457 ms. - Radiology Data Radiology results: report reviewed No active cardiopulmonary disease. Normal heart. No change. Disposition Clinical Impression: Chest pain, Hyperglycemia, Diabetes, History of coronary artery disease Disposition: HOME SELF-CARE Condition: Good Is patient prescribed a controlled substance at d/c from ED?: No Referrals: Colin Huertas MD [Primary Care Provider] - 1-2 days Time of Disposition: 00:48
--- NOTE | 2018-08-20 23:26 | XR ---
EXAMINATION TYPE: XR chest 2V DATE OF EXAM: 08/20/2018 COMPARISON: 07/20/2018 HISTORY: Chest pain TECHNIQUE: Frontal and lateral views of the chest are obtained. FINDINGS: There is no heart failure nor confluent pneumonic infiltrate. Costophrenic angles are farida r. There are sternal wires. There are chest leads. Bony thorax is intact. IMPRESSION: No active cardiopulmonary disease. Normal heart. No change.
[2018-08-20 23:43] LABS: Basophils # (A) 0.1 k/uL (0-0.2); Basophils % (A) 1 %; Eosinophils # (A) 0.4 k/uL (0-0.7); Eosinophils % (A) 5 %; HCT 42.3 % (34.0-46.0); HGB 14.3 gm/dL (11.4-16.0); Lymphocytes # (A) 2.9 k/uL (1.0-4.8); Lymphocytes % (A) 33 %; MCH 30.1 pg (25.0-35.0); MCHC 33.9 g/dL (31.0-37.0); MCV 88.7 fL (80.0-100.0); Mean Platelet Volume 6.2; Monocytes # (A) 0.5 k/uL (0-1.0); Monocytes % (A) 6 %; Neutrophils # (A) 4.6 k/uL (1.3-7.7); Neutrophils % (A) 53 %; Platelet Count 414 k/uL (150-450); RBC 4.77 m/uL (3.80-5.40); RDW 12.5 % (11.5-15.5); WBC 8.8 k/uL (3.8-10.6)
[2018-08-20 23:54] LABS: ALT 49 U/L (9-52); AST 31 U/L (14-36); Albumin 4.3 g/dL (3.5-5.0); Alkaline Phosphatase 121 U/L (38-126); Anion Gap 9 mmol/L; Blood Urea Nitrogen 31 mg/dL (7-17); Calcium 9.8 mg/dL (8.4-10.2); Carbon Dioxide 25 mmol/L (22-30); Chloride 103 mmol/L (98-107); Glucose 365 mg/dL (74-99); INR 0.9 (<1.2); Magnesium 1.9 mg/dL (1.6-2.3); Potassium 4.4 mmol/L (3.5-5.1); Prothrombin Time 9.6 sec (9.0-12.0); Sodium 137 mmol/L (137-145); Total Bilirubin 0.4 mg/dL (0.2-1.3); Total Protein 7.1 g/dL (6.3-8.2)
[2018-08-21 00:11] LABS: Partial Thromboplastin Time 21.8 sec (22.0-30.0)
[2018-08-21 00:26] LABS: Creatine Kinase 87 U/L (30-135)
[2018-08-21] MEDS ORDERED: NITROGLYCERIN SL TABS 0.4 MG TAB SUBLINGUAL PRN ×2 (00:29→00:52)
[2018-08-21] MEDS ORDERED: HEPARIN SODIUM,PORCINE 5,000 UNIT/ML 1 ML VIAL IV ONE (00:29)
[2018-08-21 00:38] LABS: Troponin I <0.012 ng/mL (0.000-0.034)
[2018-08-21] MEDS ORDERED: Insulin Aspart (For Pump) 100 UNIT/ML VIAL SQ-PUMP SCH (01:00)
[2018-08-21] MEDS: HEPARIN SOD,PORK IN 0.45% NACL 25,000 UNIT in 0.45% NACL 1 250ML.BAG IV SCH (03:11)
[2018-08-21] MEDS: LEVOTHYROXINE 100 MCG TAB PO SCH (06:16)
[2018-08-21 06:59] LABS: Creatine Kinase 77 U/L (30-135)
[2018-08-21 07:11] LABS: Creatine Kinase MB 1.1 ng/mL (0.0-2.4); Troponin I <0.012 ng/mL (0.000-0.034)
[2018-08-21 09:44] VITALS: BMI 25.0
--- NOTE | 2018-08-21 10:08 | US ---
EXAMINATION TYPE: US gallbladder DATE OF EXAM: 08/21/2018 COMPARISON: NONE CLINICAL HISTORY: pain. Indigestion, nausea, history of acid reflux EXAM MEASUREMENTS: Liver Length: 15.1 cm Gallbladder Wall: 0.2 cm CBD: 0.2 cm Right Kidney: 10.9 x 3.9 x 4.0 cm Pancreas: Tail obscured by overlying bowel gas Liver: appears wnl as visualized Gallbladder: no evidence of stones Evidence for sonographic Moya's sign: no CBD: wnl Right Kidney: no evidence of hydronephrosis IMPRESSION: No shadowing mobile gallstones or ultrasound evidence for acute cholecystitis.
[2018-08-21] MEDS ORDERED: SODIUM CHLORIDE 0.9% 1,000 ML in EMPTY BAG 1 BAG IV ONE (10:18)
[2018-08-21] MEDS ORDERED: ALPRAZolam 0.25 MG TAB PO PRN (10:18)
[2018-08-21] MEDS ORDERED: ALPRAZolam 0.5 MG TAB PO PRN (10:18)
[2018-08-21] MEDS: ISOSORBIDE MONONITRATE ER 30 MG TAB.ER.24H PO SCH (10:50)
[2018-08-21] MEDS: ASPIRIN 81 MG PO SCH (10:50)
[2018-08-21] MEDS: PRASUGREL 10 MG TAB PO SCH (10:50)
[2018-08-21] MEDS: EZETIMIBE 10 MG TAB PO SCH (10:51)
[2018-08-21] MEDS: METOPROLOL TARTRATE 12.5 MG TAB PO SCH ×2 (10:51→21:51)
[2018-08-21 11:52] LABS: Glucose,Whole Blood 247 mg/dL (75-99)
--- NOTE | 2018-08-21 12:38 | ECHOF ---
Referral Reason:cp MEASUREMENTS -------- HEIGHT: 157.5 cm WEIGHT: 61.7 kg BP: 162/73 RVIDd: 2.1 cm (< 3.3) IVSd: 1.0 cm (0.6 - 1.1) LVIDd: 3.6 cm (3.9 - 5.3) LVPWd: 1.0 cm (0.6 - 1.1) IVSs: 1.4 cm LVIDs: 2.4 cm LVPWs: 1.2 cm LA Diam: 2.9 cm (2.7 - 3.8) LAESV Index (A-L): 16.96 ml/m Ao Diam: 2.8 cm (2.0 - 3.7) AV Cusp: 1.5 cm (1.5 - 2.6) MV EXCURSION: 12.126 mm (> 18.000) MV EF SLOPE: 39 mm/s (70 - 150) EPSS: 0.8 cm MV E Jorge: 0.86 m/s MV DecT: 189 ms MV A Jorge: 0.89 m/s MV E/A Ratio: 0.96 FINDINGS -------- Sinus rhythm. This was a technically good study. The left ventricular size is normal. Left ventricular wall thickness is normal. Overall left vent ricular systolic function is normal with, an EF between 55 - 60 %. The right ventricle is normal in size. Normal LA size by volume 22+/-6 ml/m2. The right atrium is normal in size. Aortic valve is trileaflet and is mildly thickened. The mitral valve leaflets are mildly thickened. Mild mitral annular calcification present. The tricuspid valve appears structurally normal. Trace/mild (physiologic) pulmonic regurgitation. The aortic root size is normal. Normal inferior vena cava with normal inspiratory collapse consistent with estimated right atrial pre ssure of 5 mmHg. There is no pericardial effusion. CONCLUSIONS -------- 1. Sinus rhythm. 2. This was a technically good study. 3. The left ventricular size is normal. 4. Left ventricular wall thickness is normal. 5. Overall left ventricular systolic function is normal with, an EF between 55 - 60 %. 6. The right ventricle is normal in size. 7. Normal LA size by volume 22+/-6 ml/m2. 8. The right atrium is normal in size. 9. Aortic valve is trileaflet and is mildly thickened. 10. The mitral valve leaflets are mildly thickened. 11. Mild mitral annular calcification present. 12. The tricuspid valve appears structurally normal. 13. Trace/mild (physiologic) pulmonic regurgitation. 14. The aortic root size is normal. 15. Normal inferior vena cava with normal inspiratory collapse consistent with estimated right atrial pressure of 5 mmHg. 16. There is no pericardial effusion. REHAB AID: Va Lizarraga RDCS
[2018-08-21 13:18] LABS: Creatine Kinase 56 U/L (30-135)
[2018-08-21 13:27] LABS: Creatine Kinase MB 0.8 ng/mL (0.0-2.4)
[2018-08-21] MEDS ORDERED: INSULIN PUMP ACTIVE INSULIN 1 EACH MISC MISCELLANE PRN (13:27)
[2018-08-21] MEDS ORDERED: INSPUCOR MISCELLANE PRN (13:27)
[2018-08-21] MEDS ORDERED: INSULIN PUMP BASAL RATES 1 EACH MISC MISCELLANE PRN (13:27)
[2018-08-21] MEDS ORDERED: INSULIN ASPART 100 UNIT/ML 1 ML 10 ML VIAL SQ PRN (13:27)
[2018-08-21] MEDS ORDERED: INSULIN PUMP TARGET GLUCOSE 1 EACH MISC MISCELLANE PRN (13:27)
[2018-08-21 13:31] LABS: Troponin I <0.012 ng/mL (0.000-0.034)
--- NOTE | 2018-08-21 14:58 | P.CRDCN ---
History of Present Illness History of present illness: This is a pleasant 58-year-old male past medical history significant for coronary artery disease s/p triple vessel bypass grafting with subsequent stenting to proximal circumflex in March 2018, hypertension, diabetes mellitus and dyslipidemia. She follows with Dr. Aguilera in the office. We have been asked to see her in consultation for symptoms of chest discomfort. She underwent cardiac catheterization March 2018 which revealed a totally occluded mid LAD, totally occluded first OM, severe disease in a small nondominant RCA, a KENNY to LAD, patent SVG to OM, occluded SVG to diagonal branch and critical stenosis of the proximal sioux circumflex artery. At that time she underwent angioplasty of the circumflex artery successfully and has been maintained on dual antiplatelet therapy since that time. She states ever since that procedure she has felt symptoms of chest discomfort. She has been attending cardiac rehabilitation regularly and she states while she is undergoing exercise on the treadmill and when her heart rate becomes elevated she starts to feel a discomfort in the mid-scapular regoin described as a squeezing sensation with radiation into the jaw. This occurs, she states, during maximum exercise and seems to resolve when she stops. This has been ongoing cardiac rehab and she has addressed this with the staff there and apparently there has been no EKG abnormalities per the patient. She also describes very frequent belching while she is exercising. She states these symptoms are similar to how she felt prior to having her bypass surgery in 2000. She saw Dr. Aguilera in the office recently in July of this year and was diagnosed with stable angina. EKG reveals sinus mechanism with T-wave inversions noted in anterior leads as well as nonspecific ST abnormalities. No acute changes when compared to previous EKG. Chest x-ray negative for acute cardiopulmonary process. Laboratory data reviewed, WBC 8.8, hemoglobin 14.3, platelets 414, sodium 137, potassium 4.4, creatinine 0.7 with a GFR of greater than 90, magnesium 1.9, cardiac enzymes negative 3. Current cardiac medications include aspirin 81 mg daily, atorvastatin 80 mg daily, this idea 10 mg daily, Imdur 30 mg daily, Lopressor 12.5 mg twice a day and Effient 10 mg daily. Most recent low level stress test performed in the office April 2018 status post angioplasty prior to starting cardiac rehab revealed no evidence of angina or dysrhythmias with good exercise tolerance however was nondiagnostic secondary to baseline EKG abnormalities. At the time of my exam: CONSTITUTIONAL: Denies fever. Denies chills. EYES: Denies blurred vision. Denies vision changes. Denies eye pain. EARS, NOSE, MOUTH & THROAT: Denies headache. Denies sore throat. Denies ear pain. CARDIOVASCULAR: Denies chest pain. Denies shortness of breath. Denies orthopnea. Denies PND. Denies palpitations. RESPIRATORY: Denies cough. GASTROINTESTINAL: Denies abdominal pain. Denies diarrhea. Denies constipation. Denies nausea. Denies vomiting. MUSCULOSKELETAL: Denies myalgias. INTEGUMENTARY: Denies pruitis. Denies rash. NEUROLOGIC: Denies numbness. Denies tingling. Denies weakness. PSYCHIATRIC: Denies anxiety. Denies depression. ENDOCRINE: Denies fatigue. Denies weight change. Denies polydipsia. Denies polyurina. GENITOURINARY: Denies burning, hematuria or urgency with micturation. HEMATOLOGIC: Denies history of anemia. Denies bleeding. Blood pressure 163/73 heart rate 83 afebrile maintaining oxygen saturation on room air GENERAL: This is a 58-year-old Caucaian female in no apparent distress at the time of my examination. HEENT: Head is atraumatic, normocephalic. Pupils are equal, round. Sclerae anicteric. Conjunctivae are clear. Mucous membranes of the mouth are moist. Neck is supple. There is no jugular venous distention. No carotid bruit is heard. LUNGS: Clear to auscultation no wheezes, rales or rhonchi. No chest wall tenderness is noted on palpation or with deep breathing. HEART: Regular rate and rhythm with systolic ejection murmur at the left sternal border, no rubs or gallops. S1 and S2 heard. ABDOMEN: Soft, nontender. Bowel sounds are heard. No organomegaly noted. EXTREMITIES: No evidence of peripheral edema and no calf tenderness noted. VASCULAR: Radial and dorsalis pedis pulses palpated, no evidence of clubbing. NEUROLOGIC: Patient is awake, alert and oriented x3. ASSESSMENT Unstable angina History of coronary artery disease status post bypass grafting 2010 with one graft occluded and recent stenting of the sioux circumflex. Hypertension Dyslipidemia Diabetes mellitus PLAN Obtain 2D echocardiogram and doppler study to assess cardiac structure and function. We recommend proceeding with cardiac catheterization to further assess the coronary arteries for any further obstructive disease. I have discussed the risks, benefits and alternative therapies for the above- mentioned procedure and for both sedation/analgesia as well as necessary blood product administration, if indicated, as they pertain to this patient. The patient has indicated understanding and acceptance of the risks and procedures discussed. Questions have been answered appropriately and she is agreeable to move forward with the above stated procedure. She will be NPO after midnight. Further recommendations to follow. Thank you kindly for this consultation. Nurse Practitioner note has been reviewed, I agree with a documented findings and plan of care. Patient was seen and examined. Past Medical History Past Medical History: Coronary Artery Disease (CAD), Diabetes Mellitus, Hyperlipidemia, Rheumatoid Arthritis (RA), Thyroid Disorder Additional Past Medical History / Comment(s): pt had medullulary thyroid cancer , diabetic retinopathy, and hypercholesterolemia. History of Any Multi-Drug Resistant Organisms: None Reported Past Surgical History: Breast Surgery, Section, Coronary Bypass/CABG, Orthopedic Surgery Additional Past Surgical History / Comment(s): CABG - triple [address] Boris C[place]oon, Benign breast biopsy; Breast reduction: repair of trigger finger; thyroidectomy 2011, Right knee sx, vectrectomy on left eye, cataract Past Anesthesia/Blood Transfusion Reactions: No Reported Reaction Past Psychological History: No Psychological Hx Reported, Depression Smoking Status: Never smoker Past Alcohol Use History: None Reported Past Drug Use History: None Reported - Past Family History Father Family Medical History: Coronary Artery Disease (CAD), CVA/TIA Additional Family Medical History / Comment(s): Father at age 88 with history of CVA and cardiovascular disease, triple bypass at age 69 Mother Family Medical History: Cancer Additional Family Medical History / Comment(s): breast ca at 66 Brother(s) Additional Family Medical History / Comment(s): Patient has 1 brother that has with history of thyroid medullary cancer, he was a [place] vet with exposure to agent orange and complications. Sister(s) Additional Family Medical History / Comment(s): She has one sister that is alive with history of diabetes mellitus type 2. Patient has 2 children with no major medical problems. Medications and Allergies Home Medications Medication Instructions Recorded Confirmed Type Insulin Aspart (For Pump) [NovoLOG 0.01 unit SQ-PUMP CONTINUOUS 04/14/17 History (For Pump)] Albuterol Sulfate [Proair Hfa] 1 - 2 puff INHALATION RT-Q6H PRN 03/24/18 History Levothyroxine Sodium [Synthroid] 100 mcg PO DAILY 03/24/18 08/20/18 History Aspirin 81 mg PO DAILY chew 03/28/18 08/20/18 Rx Atorvastatin [Lipitor] 80 mg PO HS #30 tab 03/28/18 08/20/18 Rx Isosorbide Mononitrate ER [Imdur] 30 mg PO DAILY #30 tab.er.24h 03/28/18 Rx Metoprolol Tartrate [Lopressor] 12.5 mg PO BID #60 tab 03/28/18 08/20/18 Rx Prasugrel [Effient] 10 mg PO DAILY #90 tab 03/28/18 08/20/18 Rx Certolizumab Pegol [Cimzia] 400 mg SQ Q28D 08/20/18 08/20/18 History Ezetimibe [Zetia] 10 mg PO DAILY 08/20/18 08/20/18 History Montelukast [Singulair] 10 mg PO HS 08/20/18 08/20/18 History Nitroglycerin Sl Tabs [Nitrostat] 0.4 mg SUBLINGUAL Q5M PRN 08/20/18 08/20/18 History Allergies Allergy/AdvReac Type Severity Reaction Status Date / Time amoxicillin Allergy Nausea & Verified 08/20/18 23:09 Vomiting tetracycline Allergy Rash/Hives Verified 08/20/18 23:09 3-0 Silk Sutures Allergy Cause Uncoded 08/20/18 22:11 Infection Physical Exam Vitals: Vital Signs Temp Pulse Pulse Resp BP BP Pulse Ox 08/21/18 08:10 97.6 F 83 18 163/73 96 08/21/18 08:09 18 08/21/18 07:11 98.0 F 73 16 151/71 98 08/21/18 02:00 71 153/70 96 08/21/18 01:00 76 159/66 97 08/21/18 00:00 73 159/65 96 08/20/18 23:00 81 180/91 98 08/20/18 22:08 98.0 F 82 18 180/99 98 Intake and Output 08/20/18 08/21/1808/21/18 22:59 06:59 14:59 Intake Total 55.007 Balance 55.007 Intake: Intake, IV Titration 55.007 Amount Heparin Sod,Pork in 0.45% 55.007 NaCl 25,000 unit In 0.45 % NaCl 1 250ml.bag @ 12 UNITS/KG/HR 7.4 mls/hr IV .Q24H [facility] Rx#:[id number] Other: Voiding Method Toilet # Voids 1 Weight 61.689 kg 62 kg Results 08/20/18 22:53 08/20/18 22:53 Cardiac Enzymes 08/20/18 08/20/18 08/21/18 Range/Units 22:53 22:53 05:34 AST 31 (14-36) U/L CK-MB (CK-2) 1.0 1.1 (0.0-2.4) ng/mL Troponin I <0.012 <0.012 (0.000-0.034) ng/mL Coagulation 18 08/21/18 Range/Units 22:53 09:21 PT 9.6 (9.0-12.0) sec APTT 21.8 L 39.3 H (22.0-30.0) sec CBC 08/20/18 Range/Units 22:53 WBC 8.8 (3.8-10.6) k/uL RBC 4.77 (3.80-5.40) m/uL Hgb 14.3 (11.4-16.0) gm/dL Hct 42.3 (34.0-46.0) % Plt Count 414 (150-450) k/uL Comprehensive Metabolic Panel 08/20/18 Range/Units 22:53 Sodium 137 (137-145) mmol/L Potassium 4.4 (3.5-5.1) mmol/L Chloride 103 (98-107) mmol/L Carbon Dioxide 25 (22-30) mmol/L BUN 31 H (7-17) mg/dL Creatinine 0.70 (0.52-1.04) mg/dL Glucose 365 H (74-99) mg/dL Calcium 9.8 (8.4-10.2) mg/dL AST 31 (14-36) U/L ALT 49 (9-52) U/L Alkaline Phosphatase 121 (38-126) U/L Total Protein 7.1 (6.3-8.2) g/dL Albumin 4.3 (3.5-5.0) g/dL Current Medications Generic Name Dose Route Start Last Admin Trade Name Freq PRN Reason Stop Dose Admin Alprazolam 0.25 mg 08/21/18 10:18 Xanax PO Q6HR PRN Mild Anxiety Alprazolam 0.5 mg 08/21/18 10:18 Xanax PO Q6HR PRN Moderate Anxiety Aspirin 81 mg 08/21/18 09:00 08/21/18 10:50 Aspirin PO 81 mg DAILY PERRY Administration Aspirin 325 mg 08/22/18 06:00 Aspirin PO 08/22/18 06:01 ONCE ONE Atorvastatin Calcium 80 mg 08/21/18 21:00 Lipitor PO HS PERRY Ezetimibe 10 mg 08/21/18 09:00 08/21/18 10:51 Zetia PO 10 mg DAILY PERRY Administration Heparin Sodium/Sodium Chloride 250 mls @ 7.4 mls/hr 08/21/18 00:30 08/21/18 10:37 25,000 unit/ Sodium Chloride IV 15 units/kg/hr .Q24H PERRY 9.25 mls/hr Titration Protocol 12 UNITS/KG/HR Sodium Chloride 1,000 ml/ IV 1,000 mls @ 62 mls/hr 08/22/18 06:00 Solution IV 08/22/18 22:07 .Q16H8M ONE 1 ML/KG/HR Insulin Aspart 0.01 unit 08/21/18 01:00 08/21/18 10:50 Novolog (For Pump) SQ-PUMP Not Given CONTINUOUS [facility] Isosorbide Mononitrate 30 mg 08/21/18 09:00 08/21/18 10:50 Imdur PO 30 mg DAILY PERRY Administration Levothyroxine Sodium 100 mcg 08/21/18 06:30 08/21/18 06:16 Synthroid PO 100 mcg DAILY@0630 [facility] Administration Metoprolol Tartrate 12.5 mg 08/21/18 09:00 08/21/18 10:51 Lopressor PO 12.5 mg BID PERRY Administration Montelukast Sodium 10 mg 08/21/18 21:00 Singulair PO HS PERRY Nitroglycerin 0.4 mg 08/21/18 00:29 Nitrostat SUBLINGUAL Q5M PRN Chest Pain Nitroglycerin 0.4 mg 08/21/18 00:52 Nitrostat SUBLINGUAL Q5M PRN Chest Pain Non-Formulary Medication 400 mg 08/25/18 09:00 Certolizumab Pegol [Cimzia] SQ Q28D [facility] Prasugrel 10 mg 08/21/18 09:00 08/21/18 10:50 Effient PO 10 mg DAILY [facility] Administration Intake and Output 08/20/18 08/21/18 08/21/18 22:59 06:59 14:59 Intake Total 55.007 Balance 55.007 Intake: Intake, IV Titration 55.007 Amount Heparin Sod,Pork in 0.45% 55.007 NaCl 25,000 unit In 0.45 % NaCl 1 250ml.bag @ 12 UNITS/KG/HR 7.4 mls/hr IV .Q24H [facility] Rx#:[id number] Other: Voiding Method Toilet # Voids 1 Weight 61.689 kg 62 kg Patient Weight 08/22/18 06:59 Weight 62 kg 08/20/18 22:53 08/20/18 22:53
[2018-08-21 16:52] LABS: Glucose,Whole Blood 204 mg/dL (75-99)
[2018-08-21] MEDS: INSULIN PUMP MEAL BOLUS 1 UNIT MISC MISCELLANE SCH ×2 (16:53→22:33)
--- NOTE | 2018-08-21 16:56 | P.HPIM ---
History of Present Illness H&P Date: 08/21/18 Chief Complaint: Chest pain on exertion This is a 58-year-old lady patient of Dr Willy Blackman She has underlying history of CAD with prior 3 vessel CABG in 2010, also requiring stenting to the proximal circumflex in March 2018. Diabetes mellitus type 1, hyperlipidemia, GERD, also arthritis, she presented to emergency room secondary to shortness of breath on exertion, with neck pain jaw pain during exertion especially the heart rate which is between 110-115. Patient denies any chest discomfort Patient currently is fairly active, and is currently in the heart rehab program. Patient also has another concern which is bloating, easily after meals , and easily triggered also by greasy food. Patient has emesis with greasy food. Patient has taken away greasy food this had subsided however he still has bloating episodes. Patient's symptoms are very similar to her initial presentation when she had bypass surgery in 2010. Her last cardiac cath March 2018 shows totally occluded mid LAD totally occluded first OM severe disease in a small nondominant RCA, KENNY to the LAD patent SVG to OM, occluded SVG to diagonal branch and critical stenosis of the proximal anvik circumflex artery. She is scheduled for heart cath tomorrow. In the emergency room, imaging studies included EKG showing sinus rhythm with T- wave inversion in anterior leads nonspecific ST changes, troponin 2 negative, hemoglobin 14.3the count 8.8 platelet 414, creatinine of 0.7 electrolytes normal admission 1.9 cardiac enzymes negative 3 cardiology has been consulted, currently on Imdur 30 mg daily, when necessary sublingual nitroglycerin, Effient 10 mg daily, heparin drip and aspirin. Patient is admitted for unstable angina cardiac cath is planned for tomorrow August 22 Review of Systems Constitutional: Reports as per HPI, Denies anorexia, Denies chills, Denies chronic headaches, Denies chronic pain, Denies daytime sleepiness, Denies fatigue, Denies fever, Denies lethargy, Denies malaise, Denies night sweats, Denies poor appetite, Denies sweats, Denies weakness, Denies weight gain, Denies weight loss Ears, nose, mouth and throat: Reports as per HPI, Denies ant. neck pain, Denies bleeding gums, Denies dental pain, Denies dysphagia, Denies epistaxis, Denies headache, Denies hoarseness, Denies mouth pain, Denies nasal congestion, Denies nasal discharge, Denies neck fullness/pressure, Denies neck lump, Denies nose pain, Denies odynophagia, Denies post-nasal drip, Denies sinus pain, Denies sinus pressure, Denies swelling in mouth, Denies swelling in throat, Denies sore throat, Denies vertigo, Denies voice changes Cardiovascular: Reports as per HPI, Reports chest pain, Reports dyspnea on exertion Respiratory: Reports as per HPI, Denies congestion, Denies cough, Denies cough with sputum, Denies dyspnea, Denies excessive sputum, Denies hemoptysis, Denies home oxygen, Denies pain, Denies pain on inspiration, Denies pleurisy, Denies respiratory infections, Denies sleep apnea, Denies snoring, Denies wheezing Gastrointestinal: Reports as per HPI, Reports abdominal pain, Reports dyspepsia , Reports early satiety, Reports indigestion Genitourinary: Reports as per HPI, Denies abnormal vaginal bleeding, Denies decreased libido, Denies difficulty conceiving, Denies difficulty voiding, Denies dysmenorrhea, Denies dyspareunia, Denies dysuria, Denies flank pain, Denies genital sores, Denies hematuria, Denies hot flashes, Denies incomplete emptying, Denies kidney stones, Denies menorrhagia, Denies mixed incontinence, Denies nocturia, Denies pelvic pain, Denies post void dribbling, Denies , Denies prolapse symptoms, Denies stress incontinence, Denies urge incontinence , Denies urgency, Denies urinary frequency, Denies vaginal discharge, Denies vaginal dryness, Denies vaginal itching, Denies vaginal odor Menstruation: Reports as per HPI, Reports postmenopausal Musculoskeletal: Reports as per HPI, Denies arm numbness/tingling, Denies atrophy, Denies fractures, Denies frequent falls, Denies gait dysfunction, Denies hot joints, Denies leg numbness/tingling, Denies limitation of motion, Denies loss of height, Denies low back pain, Denies morning stiffness, Denies muscle cramps, Denies muscle weakness, Denies myalgias, Denies neck pain, Denies neck stiffness, Denies prior amputations, Denies redness of joints, Denies shooting arm pain, Denies shooting leg pain Integumentary: Reports as per HPI, Denies acne, Denies boils, Denies brittle nails, Denies change in hair/nails, Denies color changes, Denies darkening of skin, Denies depigmentation, Denies dryness, Denies foot/leg ulcers, Denies growths, Denies hirsutism, Denies lesions, Denies onychomycosis, Denies pruritus , Denies rash, Denies sores, Denies striae, Denies unusual bruising, Denies wounds Neurological: Reports as per HPI, Denies aphasia, Denies ataxia, Denies balance difficulties, Denies burning pain, Denies change in mentation, Denies change in smell/taste, Denies change in speech, Denies confusion, Denies convulsions, Denies double vision, Denies gait dysfunction, Denies head injury, Denies headaches, Denies hearing difficulties, Denies lack of coordination, Denies loss of vision, Denies memory loss, Denies migraines, Denies motor disturbance, Denies numbness, Denies paralysis, Denies paresthesias, Denies seizures, Denies sensory deficit, Denies spasticity, Denies syncope, Denies tic, Denies tingling , Denies transient paralysis, Denies tremors, Denies vertigo, Denies weakness, Denies visual changes Psychiatric: Reports as per HPI, Denies anhedonia, Denies anxiety, Denies anxiety attacks, Denies change in appetite, Denies change in libido, Denies change in sleep habits, Denies confusion, Denies depression, Denies difficulty concentrating, Denies disorientation, Denies hallucinations, Denies hopelessness , Denies hypersomnia, Denies insomnia, Denies irritability, Denies memory loss, Denies mood swings, Denies paranoia, Denies sadness/tearfulness, Denies sleep disturbances, Denies suicidal ideation Endocrine: Reports as per HPI, Denies cold intolerance, Denies deepening of the voice, Denies excessive sweating, Denies excessive thirst, Denies fatigue, Denies flushing, Denies heat intolerance, Denies high blood sugars, Denies increase in ring/shoe/hat size, Denies low blood sugars, Denies nocturia, Denies palpitations, Denies polydipsia, Denies polyphagia, Denies polyuria, Denies proptosis, Denies recent glucocorticoid use, Denies thyroid mass, Denies weight change Hematologic/Lymphatic: Reports as per HPI Allergic/Immunologic: Reports as per HPI Past Medical History Past Medical History: Coronary Artery Disease (CAD), Diabetes Mellitus, Hyperlipidemia, Rheumatoid Arthritis (RA), Thyroid Disorder Additional Past Medical History / Comment(s): pt had medullulary thyroid cancer , diabetic retinopathy, and hypercholesterolemia. History of Any Multi-Drug Resistant Organisms: None Reported Past Surgical History: Breast Surgery, Section, Coronary Bypass/CABG, Orthopedic Surgery Additional Past Surgical History / Comment(s): CABG - triple [address] Boris Austin, Benign breast biopsy; Breast reduction: repair of trigger finger; thyroidectomy 2012, Right knee sx, vectrectomy on left eye, cataract Past Anesthesia/Blood Transfusion Reactions: No Reported Reaction Past Psychological History: No Psychological Hx Reported, Depression Smoking Status: Never smoker Past Alcohol Use History: None Reported Past Drug Use History: None Reported - Past Family History Father Family Medical History: Coronary Artery Disease (CAD), CVA/TIA Additional Family Medical History / Comment(s): Father at age 88 with history of CVA and cardiovascular disease, triple bypass at age 69 Mother Family Medical History: Cancer Additional Family Medical History / Comment(s): breast ca at 66 Brother(s) Additional Family Medical History / Comment(s): Patient has 1 brother that has with history of thyroid medullary cancer, he was a [place] vet with exposure to agent orange and complications. Sister(s) Additional Family Medical History / Comment(s): She has one sister that is alive with history of diabetes mellitus type 2. Patient has 2 children with no major medical problems. Medications and Allergies Home Medications Medication Instructions Recorded Confirmed Type Insulin Aspart (For Pump) [NovoLOG 0.01 unit SQ-PUMP CONTINUOUS 04/14/17 History (For Pump)] Albuterol Sulfate [Proair Hfa] 1 - 2 puff INHALATION RT-Q6H PRN 03/24/18 History Levothyroxine Sodium [Synthroid] 100 mcg PO DAILY 03/24/18 08/20/18 History Aspirin 81 mg PO DAILY chew 03/28/18 08/20/18 Rx Atorvastatin [Lipitor] 80 mg PO HS #30 tab 03/28/18 08/20/18 Rx Isosorbide Mononitrate ER [Imdur] 30 mg PO DAILY #30 tab.er.24h 03/28/18 Rx Metoprolol Tartrate [Lopressor] 12.5 mg PO BID #60 tab 03/28/18 08/20/18 Rx Prasugrel [Effient] 10 mg PO DAILY #90 tab 03/28/18 08/20/18 Rx Certolizumab Pegol [Cimzia] 400 mg SQ Q28D 08/20/18 08/20/18 History Ezetimibe [Zetia] 10 mg PO DAILY 08/20/18 08/20/18 History Montelukast [Singulair] 10 mg PO HS 08/20/18 08/20/18 History Nitroglycerin Sl Tabs [Nitrostat] 0.4 mg SUBLINGUAL Q5M PRN 08/20/18 08/20/18 History Allergies Allergy/AdvReac Type Severity Reaction Status Date / Time amoxicillin Allergy Nausea & Verified 08/20/18 23:09 Vomiting tetracycline Allergy Rash/Hives Verified 08/20/18 23:09 3-0 Silk Sutures Allergy Cause Uncoded 08/20/18 22:11 Infection Physical Exam Vitals: Vital Signs Temp Pulse Pulse Resp BP BP Pulse Ox 08/21/18 15:32 65 18 08/21/18 12:00 65 18 08/21/18 11:59 97.7 F 65 18 127/69 98 08/21/18 08:10 97.6 F 83 18 163/73 96 08/21/18 08:09 18 08/21/18 07:11 98.0 F 73 16 151/71 98 08/21/18 02:00 71 153/70 96 08/21/18 01:00 76 159/66 97 08/21/18 00:00 73 159/65 96 08/20/18 23:00 81 180/91 98 08/20/18 22:08 98.0 F 82 18 180/99 98 Intake and Output 08/21/18 08/21/18 08/21/18 06:59 14:59 22:59 Intake Total 55.007 Balance 55.007 Intake: Intake, IV Titration 55.007 Amount Heparin Sod,Pork in 0.45% 55.007 NaCl 25,000 unit In 0.45 % NaCl 1 250ml.bag @ 12 UNITS/KG/HR 7.4 mls/hr IV .Q24H [facility] Rx#:[id number] Other: Voiding Method Toilet Toilet # Voids 1 Weight 62 kg - Constitutional General appearance: average body habitus, cooperative, no acute distress - EENT Eyes: anicteric sclerae, EOMI, PERRLA, dentition normal, normal appearance ENT: NA/AT, normal oropharynx - Neck Neck: no lymphadenopathy, normal ROM, no other, no rigidity, no stridor, no thyromegaly - Respiratory Respiratory: bilateral: CTA, negative: diminished, dullness, rales, rhonchi, wheezing - Cardiovascular Rhythm: regular Heart sounds: normal: S1, S2 Abnormal Heart Sounds: no systolic murmur, no diastolic murmur, no rub, no S3 Gallop, no S4 Gallop, no click, no other - Gastrointestinal General gastrointestinal: normal bowel sounds, soft - Integumentary Integumentary: normal, normal turgor - Neurologic Neurologic: CNII-XII intact - Musculoskeletal Musculoskeletal: gait normal, strength equal bilaterally - Psychiatric Psychiatric: A&O x's 3, appropriate affect, intact judgment & insight Results CBC & Chem 7: 08/20/18 22:53 08/20/18 22:53 Labs: Abnormal Lab Results - Last 24 Hours (Table) 08/20/18 08/20/18 08/21/18 Range/Units 22:53 22:53 09:21 APTT 21.8 L 39.3 H (22.0-30.0) sec BUN 31 H (7-17) mg/dL Glucose 365 H (74-99) mg/dL POC Glucose (mg/dL) (75-99) mg/dL 08/21/18 Range/Units 11:50 APTT (22.0-30.0) sec BUN (7-17) mg/dL Glucose (74-99) mg/dL POC Glucose (mg/dL) 247 H (75-99) mg/dL Laboratory Results WBC 8.8 k/uL (3.8-10.6) 08/20/18 22:53 RBC 4.77 m/uL (3.80-5.40) 08/20/18 22:53 Hgb 14.3 gm/dL (11.4-16.0) 08/20/18 22:53 Hct 42.3 % (34.0-46.0) 08/20/18 22:53 MCV 88.7 fL (80.0-100.0) 08/20/18 22:53 MCH 30.1 pg (25.0-35.0) 08/20/18 22:53 MCHC 33.9 g/dL (31.0-37.0) 08/20/18 22:53 RDW 12.5 % (11.5-15.5) 08/20/18 22:53 Plt Count 414 k/uL (150-450) 08/20/18 22:53 Neutrophils % 53 % 08/20/18 22:53 Lymphocytes % 33 % 08/20/18 22:53 Monocytes % 6 % 08/20/18 22:53 Eosinophils % 5 % 08/20/18 22:53 Basophils % 1 % 08/20/18 22:53 Neutrophils # 4.6 k/uL (1.3-7.7) 08/20/18 22:53 Lymphocytes # 2.9 k/uL (1.0-4.8) 08/20/18 22:53 Monocytes # 0.5 k/uL (0-1.0) 08/20/18 22:53 Eosinophils # 0.4 k/uL (0-0.7) 08/20/18 22:53 Basophils # 0.1 k/uL (0-0.2) 08/20/18 22:53 PT 9.6 sec (9.0-12.0) 08/20/18 22:53 INR 0.9 (<1.2) 08/20/18 22:53 APTT 39.3 sec (22.0-30.0) H 08/21/18 09:21 Sodium 137 mmol/L (137-145) 08/20/18 22:53 Potassium 4.4 mmol/L (3.5-5.1) 08/20/18 22:53 Chloride 103 mmol/L (98-107) 08/20/18 22:53 Carbon Dioxide 25 mmol/L (22-30) 08/20/18 22:53 Anion Gap 9 mmol/L 08/20/18 22:53 BUN 31 mg/dL (7-17) H 08/20/18 22:53 Creatinine 0.70 mg/dL (0.52-1.04) 08/20/18 22:53 Est GFR (CKD-EPI)AfAm >90 (>60 ml/min/1.73 sqM) 08/20/18 22:53 Est GFR (CKD-EPI)NonAf >90 (>60 ml/min/1.73 sqM) 08/20/18 22:53 Glucose 365 mg/dL (74-99) H 08/20/18 22:53 POC Glucose (mg/dL) 247 mg/dL (75-99) H 08/21/18 11:50 POC Glu Supervisor [employer] ID Anastasiya Enamorado 08/21/18 11:50 Calcium 9.8 mg/dL (8.4-10.2) 08/20/18 22:53 Magnesium 1.9 mg/dL (1.6-2.3) 08/20/18 22:53 Total Bilirubin 0.4 mg/dL (0.2-1.3) 08/20/18 22:53 AST 31 U/L (14-36) 08/20/18 22:53 ALT 49 U/L (9-52) 08/20/18 22:53 Alkaline Phosphatase 121 U/L (38-126) 08/20/18 22:53 Total Creatine Kinase 56 U/L (30-135) 08/21/18 11:37 CK-MB (CK-2) 0.8 ng/mL (0.0-2.4) 08/21/18 11:37 CK-MB (CK-2) Rel Index 1.4 08/21/18 11:37 Troponin I <0.012 ng/mL (0.000-0.034) 08/21/18 11:37 Total Protein 7.1 g/dL (6.3-8.2) 08/20/18 22:53 Albumin 4.3 g/dL (3.5-5.0) 08/20/18 22:53 Thrombosis Risk Factor Assmnt - Choose All That Apply Each Factor Represents 1 point: Age 41-60 years Thrombosis Risk Factor Assessment Total Risk Factor Score: 1 Thrombosis Risk Factor Assessment Level: Low Risk Assessment and Plan Plan: 1 unstable angina with current presentation of jaw pain right shoulder pain on exertion, known history of CAD, with prior CABG and cardiac stents in the past. Patient is currently on heparin drip, aspirin and Effient statins and beta robina. Cardiac cath is planned by cardiology 08/22/2018 as per their recommendation.imdur 30 mg daily 2 CAD: Post CABG 2010 has been seeing cardiology Dr Aguilera. 3postperandial bloating , check US abdominal us , Hida scan with cck can be done as OP. 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 5 type 1 diabetes: On insulin pump, patient blood sugar continue insulin pump the same rate continue Accu-Chek with sliding scale. Last A1c 11.12 March 2018, New A1c to be obtained 5 hypertension: Continue metoprolol 12,5 bid and losartan. 6 hyperlipidemia: Remain on atorvastatin 80 mg daily. zetia 10 7 history of medullary carcinoma of the thyroid post surgery remain on levothyroxine 100 g daily. 8 recent history of CAD mostly mild bronchitis was placed on Medrol Dosepak and medication with Dr. Huertas. 9 GI prophylaxis: Patient will be on pantoprazole 40 mg daily. 10 DVT prophylaxis: If remain in the hospital past 24 hours we'll do heparin subcutaneous otherwise patient will have knee-high [place] hose and early mobilization. CODE STATUS: Full code. Admit patient to 23 hours hold.
[2018-08-21 21:10] LABS: Glucose,Whole Blood 130 mg/dL (75-99)
[2018-08-21] MEDS: ATORVASTATIN 80 MG TAB PO SCH (21:51)
[2018-08-21] MEDS: MONTELUKAST 10 MG TAB PO SCH (21:51)
[2018-08-22] MEDS: HEPARIN SOD,PORK IN 0.45% NACL 25,000 UNIT in 0.45% NACL 1 250ML.BAG IV SCH (01:53)
[2018-08-22] MEDS: EZETIMIBE 10 MG TAB PO SCH (05:37)
[2018-08-22] MEDS: PRASUGREL 10 MG TAB PO SCH (05:37)
[2018-08-22] MEDS: METOPROLOL TARTRATE 12.5 MG TAB PO SCH ×2 (05:37→20:17)
[2018-08-22] MEDS: LEVOTHYROXINE 100 MCG TAB PO SCH (05:37)
[2018-08-22] MEDS: ATORVASTATIN 80 MG TAB PO SCH (05:37)
[2018-08-22] MEDS: ISOSORBIDE MONONITRATE ER 30 MG TAB.ER.24H PO SCH (05:37)
[2018-08-22] MEDS: ASPIRIN 81 MG PO SCH (05:40)
[2018-08-22] MEDS ORDERED: ASPIRIN 325 MG TAB PO ONE (06:00)
[2018-08-22] MEDS ORDERED: SODIUM CHLORIDE 0.9% 1,000 ML in EMPTY BAG 1 BAG IV ONE (06:00)
[2018-08-22] MEDS: INSULIN PUMP MEAL BOLUS 1 UNIT MISC MISCELLANE SCH ×4 (08:38→20:20)
[2018-08-22] MEDS ORDERED: ASPIRIN 325 MG TAB PO SCH (09:00)
[2018-08-22 11:30] LABS: Glucose,Whole Blood 220 mg/dL (75-99)
[2018-08-22] MEDS ORDERED: fentaNYL (PF) 50 MCG/ML 2 ML AMP IV ONE (12:55)
[2018-08-22] MEDS ORDERED: LIDOCAINE 1% INJ 10MG/ML (20 ML MDV) ONE (12:56)
[2018-08-22] MEDS ORDERED: fentaNYL (PF) 50 MCG/ML 2 ML AMP ONE (12:56)
[2018-08-22] MEDS ORDERED: LIDOCAINE 1% INJ 10MG/ML (20 ML MDV) SQ ONE (12:58)
[2018-08-22] MEDS ORDERED: IV FLUID CONTINUATION 500 ML IV ONE (13:02)
[2018-08-22] MEDS ORDERED: NITROGLYCERIN SL TABS 0.4 MG TAB SUBLINGUAL ONE ×2 (13:03)
[2018-08-22] MEDS ORDERED: BIVALIRUDIN BOLUS 250 MG/50 ML IV ONE (13:09)
[2018-08-22] MEDS ORDERED: BIVALIRUDIN 250 MG in SODIUM CHLORIDE 0.9% 35 ML IV ONE (13:10)
[2018-08-22] MEDS ORDERED: IOPAMIDOL-370 125ML BTL INJ ONE (13:23)
[2018-08-22] MEDS ORDERED: RX INFO: IV CONTRAST WAS GIVEN 1 EACH MISC MISCELLANE PRN (13:40)
[2018-08-22] MEDS ORDERED: ZOLPIDEM 5 MG TAB PO PRN (13:40)
[2018-08-22] MEDS ORDERED: ATROPINE SULFATE 0.1 MG/ML 10ML SYRINGE IV PRN (13:40)
[2018-08-22] MEDS ORDERED: MAG HYDROX/AL HYDROX/SIMETH 30 ML CUP PO PRN (13:40)
[2018-08-22] MEDS ORDERED: NITROGLYCERIN SL TABS 0.4 MG TAB SUBLINGUAL PRN (13:40)
[2018-08-22] MEDS ORDERED: SODIUM CHLORIDE 0.9% 1,000 ML IV SCH (13:45)
--- NOTE | 2018-08-22 17:11 | CC ---
CARDIAC CATHETERIZATION REPORT Mrs. Diaz is a 58-year-old female with known history of coronary artery disease, status post coronary artery bypass grafting and percutaneous revascularization in March of this year who presented with symptoms of chest discomfort with no enzymatic changes. Recommendation was made regarding cardiac catheterization. The procedure, its risks and complication were discussed with the patient, who was in full understanding and agreement. PROCEDURE: Patient was brought to the poultry hatchery laborer in a fasting, semi-sedated state after receiving fentanyl and Benadryl and achieving a moderate conscious sedated state. Using Xylocaine anesthesia and Seldinger technique, a 6-[place] sheath was introduced in the right femoral artery. Selective right and left angiography was performed using 6- [place] 4 Bend right and left Hakeem catheters. Multiple views were taken of the arteries, including hemiaxial views. Following that, the right [place] catheter was used to cannulate the KENNY to LAD and saphenous vein graft to the obtuse marginal branch. Images of the grafts were obtained. Following that, angioplasty and stenting were performed. Following that, a 6-[place] tight pigtail catheter was introduced into the left ventricle and pressures were calculated. Following that, catheter and sheath were removed. Hemostasis was obtained with deployment of Angio-Seal. There was no immediate complication. Patient was returned to her room in stable condition. FINDINGS: LEFT MAIN: This is a short-sized vessel bifurcating into left circumflex and left anterior descending artery. Left main coronary artery has a 90% stenosis. LEFT ANTERIOR DESCENDING ARTERY: The takeoff of the left anterior descending artery has an 80% to 90% stenosis. It is totally occluded in the mid segment with no antegrade flow after the takeoff of a small- to moderate-sized diagonal branch. LEFT CIRCUMFLEX: This is a dominant vessel giving rise to a PDA and PLV distally. The left circumflex proximally in the stented segment has an area of stenosis of 95% to 99%. The rest of the vessel has no high-grade stenosis. RIGHT CORONARY ARTERY: This is a small nondominant vessel, diffusely diseased, small in caliber, with an area of stenosis up to 80% to 90%. KENNY to LAD: The distal anastomotic site is patent. The flow into the LAD is brisk. There is no evidence of high-grade stenosis. SAPHENOUS VEIN GRAFT TO THE OBTUSE MARGINAL BRANCH: The proximal distal anastomotic site is patent. The flow into the obtuse marginal branch is brisk. The size of the obtuse marginal branch is small. LEFT VENTRICULOGRAM: Left ventriculogram was not performed. HEMODYNAMICS: There was no gradient across the aortic valve. The left ventricular end- diastolic pressure was 12 to 16 mmHg. CONCLUSION: 1. Significant stenosis in the proximal left circumflex and left main with in-stent restenosis. 2. Totally occluded mid LAD. 3. Diffuse intimal disease of severe grade in a small nondominant right coronary artery. 4. Patent KENNY to LAD. 5. Patent saphenous vein graft to the obtuse marginal branch. RECOMMENDATIONS: In view of findings and anatomy, I recommend proceeding with angioplasty and stenting of the left main and to the left circumflex. The procedures, it risks and complications were discussed with the patient, who is in full understanding and agreement. MMODL / IJN: [id number] /
[2018-08-22 17:34] LABS: Glucose,Whole Blood 318 mg/dL (75-99)
--- NOTE | 2018-08-22 17:50 | PTCA ---
PERCUTANEOUSTRANS CORORONARY ANGIOGRAPHY Mrs. Diaz is a 58-year-old female with known history of coronary disease, history of status post bypass grafting and percutaneous revascularization who presented with symptoms of chest discomfort and angina pectoris, underwent cardiac catheterization, was found to have proximal in-stent restenosis of the left main into the proximal left circumflex. Recommendation was made regarding angioplasty and stenting. The procedure, risks and complications were discussed with the patient who is in full understanding and agreement. PROCEDURE: A 6-[place] FR4 guiding catheter system was introduced into the system. After cannulating the left main a 0.014 balanced medium weight J-wire was advanced across the lesion, positioned distally. Then a 3.0 x 12 mm Xience Elina stent was deployed and post dilated at 16 atmospheres. Following that the balloon was removed and a 3.25 x 8 mm NC Trek balloon was advanced and one inflation at 16 atmospheres was done. After the last inflation, after appropriate wait, the balloon and the guidewire were withdrawn back in the guiding catheter. Images were obtained repeated. Those images reveal stable successful stenting. At that point, the guiding catheter, the balloon and the guidewire were removed as the left ventricle end-diastolic pressure was measured. Following that, catheter and sheath were removed. Hemostasis was obtained with deployment of an Angio-Seal. There was no immediate complication. The patient is returned to room in stable condition. Of note, the patient received Angiomax per protocol. She had chest discomfort and EKG changes with the inflation that resolved at the end of the procedure. RESULTS: Successful stenting of the left main and proximal left circumflex with reduction of stenosis from 95% to 0%. RECOMMENDATION: Patient will be continued on aspirin, Effient and a statin. The importance of dual antiplatelet treatment was discussed with the patient and her family and they are in full understanding and agreement. Duration of procedure is 31 minute. MMODL / IJN: [id number] /
[2018-08-22] MEDS: MONTELUKAST 10 MG TAB PO SCH (20:17)
[2018-08-22 21:04] LABS: Glucose,Whole Blood 146 mg/dL (75-99)
[2018-08-23 04:35] VITALS: TEMP 97.4
[2018-08-23 06:05] LABS: Glucose,Whole Blood 279 mg/dL (75-99)
[2018-08-23] MEDS: LEVOTHYROXINE 100 MCG TAB PO SCH (06:15)
[2018-08-23 07:33] LABS: Anion Gap 6 mmol/L; Blood Urea Nitrogen 22 mg/dL (7-17); Calcium 9.3 mg/dL (8.4-10.2); Carbon Dioxide 28 mmol/L (22-30); Chloride 105 mmol/L (98-107); Glucose 259 mg/dL (74-99); Potassium 5.1 mmol/L (3.5-5.1); Sodium 139 mmol/L (137-145)
[2018-08-23 08:38] VITALS: RESP 16
[2018-08-23] MEDS: ASPIRIN 81 MG PO SCH (08:44)
[2018-08-23] MEDS: METOPROLOL TARTRATE 12.5 MG TAB PO SCH (08:44)
[2018-08-23] MEDS: ISOSORBIDE MONONITRATE ER 30 MG TAB.ER.24H PO SCH (08:44)
[2018-08-23] MEDS: EZETIMIBE 10 MG TAB PO SCH (08:45)
[2018-08-23] MEDS: PRASUGREL 10 MG TAB PO SCH (08:45)
[2018-08-23] MEDS: INSULIN PUMP MEAL BOLUS 1 UNIT MISC MISCELLANE SCH ×2 (08:48→11:43)
--- NOTE | 2018-08-23 10:51 | P.PN ---
Subjective Progress Note Date: 08/22/18 This is a 58-year-old lady patient of Dr Willy Blackman She has underlying history of CAD with prior 3 vessel CABG in 2010, also requiring stenting to the proximal circumflex in March 2018. Diabetes mellitus type 1, hyperlipidemia, GERD, also arthritis, she presented to emergency room secondary to shortness of breath on exertion, with neck pain jaw pain during exertion especially the heart rate which is between 110-115. Patient denies any chest discomfort Patient currently is fairly active, and is currently in the heart rehab program. Patient also has another concern which is bloating, easily after meals , and easily triggered also by greasy food. Patient has emesis with greasy food. Patient has taken away greasy food this had subsided however he still has bloating episodes. Patient's symptoms are very similar to her initial presentation when she had bypass surgery in 2010. Her last cardiac cath March 2018 shows totally occluded mid LAD totally occluded first OM severe disease in a small nondominant RCA, KENNY to the LAD patent SVG to OM, occluded SVG to diagonal branch and critical stenosis of the proximal [place] circumflex artery. She is scheduled for heart cath tomorrow. In the emergency room, imaging studies included EKG showing sinus rhythm with T- wave inversion in anterior leads nonspecific ST changes, troponin 2 negative, hemoglobin 14.3the count 8.8 platelet 414, creatinine of 0.7 electrolytes normal admission 1.9 cardiac enzymes negative 3 cardiology has been consulted, currently on Imdur 30 mg daily, when necessary sublingual nitroglycerin, Effient 10 mg daily, heparin drip and aspirin. Patient is admitted for unstable angina cardiac cath is planned for tomorrow August 2208/22: Patient underwent heart catheterization finding significant stenosis of the proximal left circumflex and left main with in-stent restenosis, totally occluded mid LAD, diffuse intimal disease of severe grade and a small nondominant right coronary artery, patent KENNY to LAD, patent saphenous vein graft to the obtuse marginal branch. She subsequently underwent successful stenting of the left main and proximal left circumflex with reduction of stenosis from 95% to 0% completed by Dr. Aguilera yesterday. Recommend continuing aspirin, Effient and statin and dual antiplatelet treatment. Review Of Systems: Constitutional: No fever, no chills, no night sweats. No weight change. No weakness, fatigue or lethargy. No daytime sleepiness. EENT: No headache. No blurred vision or double vision, no loss of vision. No loss of Hearing, no ringing in the ears, no dizziness. No nasal drainage or congestion. No epistaxis. No sore throat. Lungs: No shortness of breath, cough, no sputum production. No wheezing. Cardiovascular: No chest pain, no lower extremity edema. No palpitations. No paroxysmal nocturnal dyspnea. No orthopnea. No lightheadedness or dizziness. No syncopal episodes. Abdominal: No abdominal pain. No nausea, vomiting. No diarrhea. No constipation. No bloody or tarry stools.. No loss of appetite. Genitourinary: No dysuria, increased frequency, urgency. No urinary retention. Musculoskeletal: No myalgias. No muscle weakness, no gait dysfunction, no frequent falls. No back pain. No neck pain. Integumentary: No wounds, no lesions. No rash or pruritus. No unusual bruising. No change in hair or nails. Neurologic: No aphasia. No facial droop. No change in mentation. No head injury. No headache. No paralysis. No paresthesia. Psychiatric: No depression. No anxiety. No mood swings. Endocrine: No abnormal blood sugars. No weight change. No excessive sweating or thirst. No cold intolerance. No weight change. Objective - Vital Signs Vital signs: Vital Signs Temp 97.6 F 08/22/18 08:00 Pulse 81 08/22/18 08:00 Resp 16 08/22/18 08:00 BP 165/75 08/22/18 08:00 Pulse Ox 99 08/22/18 08:00 Intake & Output 08/21/18 08/22/18 08/22/18 18:59 06:59 18:59 Intake Total 55.007 291.217 Balance 55.007 291.217 Weight 62 kg Intake: IV 150 0.9@75 150 Intake, IV Titration 55.007 141.217 Amount Heparin Sod,Pork in 0.45% 55.007 141.217 NaCl 25,000 unit In 0.45 % NaCl 1 250ml.bag @ 12 UNITS/KG/HR 7.4 mls/hr IV .Q24H [facility] Rx#:[id number] Other: Voiding Method Toilet Toilet Toilet # Voids 1 2 2 - Exam General appearance: average body habitus, cooperative, no acute distress, resting comfortably - EENT Eyes: anicteric sclerae, EOMI, PERRLA, dentition normal, normal appearance ENT: NA/AT, normal oropharynx - Neck Neck: no lymphadenopathy, normal ROM, no other, no rigidity, no stridor, no thyromegaly - Respiratory Respiratory: bilateral: CTA, negative: diminished, dullness, rales, rhonchi, wheezing - Cardiovascular Rhythm: regular Heart sounds: normal: S1, S2 Abnormal Heart Sounds: no systolic murmur, no diastolic murmur, no rub, no S3 Gallop, no S4 Gallop, no click, no other - Gastrointestinal General gastrointestinal: normal bowel sounds, soft - Integumentary Integumentary: normal, normal turgor - Neurologic Neurologic: CNII-XII intact - Musculoskeletal Musculoskeletal: gait normal, strength equal bilaterally - Psychiatric Psychiatric: A&O x's 3, appropriate affect, intact judgment & insight - Labs CBC & Chem 7: 08/20/18 22:53 08/23/18 06:22 Labs: Abnormal Lab Results - Last 24 Hours (Table) 08/21/18 08/21/18 08/21/18 Range/Units 11:50 16:47 17:07 APTT 47.7 H (22.0-30.0) sec POC Glucose (mg/dL) 247 H 204 H (75-99) mg/dL Hemoglobin A1c (4.0-6.0) % Lipase (23-300) U/L 08/21/18 08/21/18 08/22/18 Range/Units 17:07 20:45 08:25 APTT (22.0-30.0) sec POC Glucose (mg/dL) 130 H (75-99) mg/dL Hemoglobin A1c 11.0 H (4.0-6.0) % Lipase 391 H (23-300) U/L 08/22/18 Range/Units 08:25 APTT 51.1 H (22.0-30.0) sec POC Glucose (mg/dL) (75-99) mg/dL Hemoglobin A1c (4.0-6.0) % Lipase (23-300) U/L Assessment and Plan Plan: 1. Unstable angina with secondary to coronary artery disease status post heart catheterization and stenting. Continue aspirin 81 mg daily, Lipitor 80 mg at bedtime, Imdur 30 mg daily, Lopressor 12.5 mg twice daily, Effient 10 mg daily. 2. History of CAD: Post CABG 2010 has been seeing cardiology Dr Aguilera. 3. Postperandial bloating , check US abdominal us , Hida scan with cck can be done as OP. Check lipase 4. 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 5. Type 1 diabetes: On insulin pump, patient blood sugar continue insulin pump the same rate continue Accu-Chek with sliding scale. Last A1c .12 March 2018, New A1c to be obtained 6. hypertension: Continue metoprolol 12,5 bid and losartan. 7. Hyperlipidemia: Remain on atorvastatin 80 mg daily. zetia 10 8. History of medullary carcinoma of the thyroid post surgery remain on levothyroxine 100 g daily. 9. Recent history of CAD mostly mild bronchitis was placed on Medrol Dosepak and medication with Dr. Huertas. 10. GI prophylaxis: Patient will be on pantoprazole 40 mg daily. 11 DVT prophylaxis:knee-high [place] hose and early mobilization. CODE STATUS: Full code. Discharge plan: Home tomorrow Impression and plan of care have been directed as dictated by the signing physician. Vero Montes nurse practitioner acting as scribe for signing physician.
[2018-08-23 11:34] LABS: Glucose,Whole Blood 213 mg/dL (75-99)
[2018-08-23 11:39] VITALS: BP 139/63; PULSE 68
--- NOTE | 2018-08-23 12:42 | PN ---
PROGRESS NOTE Mrs. Diaz is a 58-year-old female with known history of coronary artery disease, status post coronary artery bypass grafting who presented with symptoms of chest discomfort, underwent cardiac catheterization, was found to have critical stenosis in the proximal left circumflex and in the left main and the prior stented segment. She underwent repeat stenting of that vessel. She is doing well this morning. She is denying any chest pain. Her breathing has been stable. No dizziness. No palpitation. No nausea. She is continued on aspirin once a day, Effient 10 mg daily, Lipitor 80 mg daily, Zetia 10 mg daily, insulin, isosorbide mononitrate 30 mg daily, metoprolol tartrate 12.5 mg twice a day. PHYSICAL EXAMINATION: Blood pressure 120/50 with a heart rate in the 60s. LUNGS: Clear, regular rate and rhythm, S1, S2. No S3 with systolic murmur, no diastolic murmur, no rub. ABDOMEN: Soft, nontender. EXTREMITIES: No edema, right groin no hematoma. LAB DATA: Revealed BUN and creatinine 20 and 0.66. Potassium 5.1. EKG with no acute changes. IMPRESSION: 1. Status post stenting of the left main and proximal left circumflex. 2. Status post bypass grafting. 3. Hyperlipidemia. 4. Diabetes mellitus. RECOMMENDATION: Patient will be discharged home today and followed as an outpatient. MMODL / IJN: [id number] /
--- NOTE | 2018-08-23 13:12 | P.DS ---
Providers Date of admission: 08/21/18 00:16 Expected date of discharge: 08/23/18 Attending physician: Holly Abdullahi Consults: 08/21/18 00:29 Consult Physician Urgent Consulting Provider: Isaias Aguilera Consult Reason/Comments: yes Do you want consulting provider notified?: Yes Primary care physician: Colin Luu ivett [facility] Course: This is a 58-year-old lady patient of Dr. Huertas, Dr Aguilera She has underlying history of CAD with prior 3 vessel CABG in 2010, also requiring stenting to the proximal circumflex in March 2018. Diabetes mellitus type 1, hyperlipidemia, GERD, also arthritis, she presented to emergency room secondary to shortness of breath on exertion, with neck pain jaw pain during exertion especially the heart rate which is between 110-115. Patient denies any chest discomfort Patient currently is fairly active, and is currently in the heart rehab program. Patient also has another concern which is bloating, easily after meals , and easily triggered also by greasy food. Patient has emesis with greasy food. Patient has taken away greasy food this had subsided however he still has bloating episodes. Patient's symptoms are very similar to her initial presentation when she had bypass surgery in 2010. Her last cardiac cath March 2018 shows totally occluded mid LAD totally occluded first OM severe disease in a small nondominant RCA, KENNY to the LAD patent SVG to OM, occluded SVG to diagonal branch and critical stenosis of the proximal [place] circumflex artery. She is scheduled for heart cath tomorrow. In the emergency room, imaging studies included EKG showing sinus rhythm with T- wave inversion in anterior leads nonspecific ST changes, troponin 2 negative, hemoglobin 14.3the count 8.8 platelet 414, creatinine of 0.7 electrolytes normal admission 1.9 cardiac enzymes negative 3 cardiology has been consulted, currently on Imdur 30 mg daily, when necessary sublingual nitroglycerin, Effient 10 mg daily, heparin drip and aspirin. Patient is admitted for unstable angina cardiac cath is planned for tomorrow August 2208/22: Patient underwent heart catheterization finding significant stenosis of the proximal left circumflex and left main with in-stent restenosis, totally occluded mid LAD, diffuse intimal disease of severe grade and a small nondominant right coronary artery, patent KENNY to LAD, patent saphenous vein graft to the obtuse marginal branch. She subsequently underwent successful stenting of the left main and proximal left circumflex with reduction of stenosis from 95% to 0% completed by Dr. Aguilera yesterday. Recommend continuing aspirin, Effient and statin and dual antiplatelet treatment. 08/23: Patient denies chest pain, shortness of breath, cough. Patient has been afebrile, vital signs are stable. Creatinine is 0.66. Patient has been cleared for discharge by cardiology. Patient will be discharged home today in stable condition. Discharge diagnoses: 1. Unstable angina secondary to coronary artery disease status post heart catheterization and stenting. 2. History of CAD: Post CABG 2010 3. Postprandial bloating 4. Rheumatoid arthritis 5. Type 1 diabetes: On insulin pump 6. Hypertension 7. Hyperlipidemia 8. History of medullary carcinoma of the thyroid post surgery 9. Recent history of mild bronchitis Discharge plan: Home Impression and plan of care have been directed as dictated by the signing physician. Vero Montes nurse practitioner acting as scribe for signing physician. Patient Condition at Discharge: Good Plan - Discharge Summary Discharge Rx Participant: No New Discharge Prescriptions: Continue Insulin Aspart (For Pump) [NovoLOG (For Pump)] 0.01 unit SQ-PUMP CONTINUOUS Albuterol Sulfate [Proair Hfa] 1 - 2 puff INHALATION RT-Q6H PRN PRN Reason: Shortness Of Breath Levothyroxine Sodium [Synthroid] 100 mcg PO DAILY Aspirin 81 mg PO DAILY chew Prasugrel [Effient] 10 mg PO DAILY #90 tab Atorvastatin [Lipitor] 80 mg PO HS #30 tab Isosorbide Mononitrate ER [Imdur] 30 mg PO DAILY #30 tab.er.24h Metoprolol Tartrate [Lopressor] 12.5 mg PO BID #60 tab Nitroglycerin Sl Tabs [Nitrostat] 0.4 mg SUBLINGUAL Q5M PRN PRN Reason: Chest Pain Montelukast [Singulair] 10 mg PO HS Ezetimibe [Zetia] 10 mg PO DAILY Certolizumab Pegol [Cimzia] 400 mg SQ Q28D Discharge Medication List Insulin Aspart (For Pump) [NovoLOG (For Pump)] 0.01 unit SQ-PUMP CONTINUOUS 06/21 [History] Albuterol Sulfate [Proair Hfa] 1 - 2 puff INHALATION RT-Q6H PRN 03/24/18 [ History] Levothyroxine Sodium [Synthroid] 100 mcg PO DAILY 03/24/18 [History] Aspirin 81 mg PO DAILY chew 03/28/18 [Rx] Atorvastatin [Lipitor] 80 mg PO HS #30 tab 03/28/18 [Rx] Isosorbide Mononitrate ER [Imdur] 30 mg PO DAILY #30 tab.er.24h 03/28/18 [Rx] Metoprolol Tartrate [Lopressor] 12.5 mg PO BID #60 tab 03/28/18 [Rx] Prasugrel [Effient] 10 mg PO DAILY #90 tab 03/28/18 [Rx] Certolizumab Pegol [Cimzia] 400 mg SQ Q28D 08/20/18 [History] Ezetimibe [Zetia] 10 mg PO DAILY 08/20/18 [History] Montelukast [Singulair] 10 mg PO HS 08/20/18 [History] Nitroglycerin Sl Tabs [Nitrostat] 0.4 mg SUBLINGUAL Q5M PRN 08/20/18 [History] Follow up Appointment(s)/Referral(s): Isaias Aguilera MD [STAFF PHYSICIAN] - 09/11/18 2:30 pm (Make appointment after the .) Colin Huertas MD [Primary Care Provider] - 08/30/18 2:45 pm Patient Instructions/Handouts: *Surgery [facility] - After Heart Catheterization - Commercial Title Examiner Instructions, Heart Healthy Diet (DC) Discharge Disposition: HOME SELF-CARE
[2018-08-25] MEDS ORDERED: CERTOLIZUMAB PEGOL 400 MG SQ SCH (09:00)
== END 2018-08-23 14:09 | disposition home or self-care (01) ==
LOC: EC 22:06 → 1SOBS 08-21 00:16 → 3SCARD 08-22 16:03
PROVIDERS: ADMIT Family Medicine; ATTEND Family Medicine
DX: I25.110 Atherosclerotic heart disease of native coronary artery with unstable angina pectoris (principal); I25.720 Atherosclerosis of autologous artery coronary artery bypass graft(s) with unstable angina pectoris; I25.82 Chronic total occlusion of coronary artery; T82.855A Stenosis of coronary artery stent, initial encounter; Y83.1 Surgical operation with implant of artificial internal device as the cause of abnormal reaction of the patient, or of later complication, without mention of misadventure at the time of the procedure; Z95.1 Presence of aortocoronary bypass graft; Z95.5 Presence of coronary angioplasty implant and graft; M06.9 Rheumatoid arthritis, unspecified; Z79.4 Long term (current) use of insulin; Z96.41 Presence of insulin pump (external) (internal); E10.65 Type 1 diabetes mellitus with hyperglycemia; E10.319 Type 1 diabetes mellitus with unspecified diabetic retinopathy without macular edema; I10 Essential (primary) hypertension; E78.5 Hyperlipidemia, unspecified; E89.0 Postprocedural hypothyroidism; Z85.850 Personal history of malignant neoplasm of thyroid; J40 Bronchitis, not specified as acute or chronic; M19.90 Unspecified osteoarthritis, unspecified site; K21.9 Gastro-esophageal reflux disease without esophagitis; R14.0 Abdominal distension (gaseous); Z82.3 Family history of stroke; Z80.3 Family history of malignant neoplasm of breast; Z79.890 Hormone replacement therapy; Z79.82 Long term (current) use of aspirin; Z79.899 Other long term (current) drug therapy; Z88.1 Allergy status to other antibiotic agents; Z88.0 Allergy status to penicillin; Z91.048 Other nonmedicinal substance allergy status
CPT/HCPCS: 96361 ×3; 96376; 96365; 96366; 99285; 36415; 93005; 93306; 93459; 85347; 80061; 80053; 80048; 84443; 82550 ×2; 82553 ×2; 83690; 83735; 84484 ×2; 85025; 85610; 85730 ×3; 83036; 71046; 76705; G0378 ×4; C9600; C1769 ×2; C1760; C1887; C1725; C1894; C1874; J1644 ×3; J2001; J3010; J0583; Q9967

== ENCOUNTER 2019-04-22 18:32 | Emergency (ER) | payer BC ==
[2019-04-22] MEDS ORDERED: NITROGLYCERIN OINT 1 INCH/GM PACKET TOPICAL STA (18:53)
[2019-04-22] MEDS ORDERED: ASPIRIN 81 MG PO STA (18:53)
--- NOTE | 2019-04-22 18:58 | ED ---
General Adult HPI - General Chief complaint: Chest Pain Stated complaint: CHEST PAIN, INDIGESTION Time Seen by Provider: 04/22/19 18:38 Source: patient, family, RN notes reviewed Mode of arrival: ambulatory Limitations: no limitations - History of Present Illness Initial comments: Patient is a pleasant 59-year-old female presenting to the emergency Department with complaints of chest discomfort. Onset of symptoms was a couple hours ago. Patient has indigestion sensation in her chest with some radiation towards the back. Patient has had some symptoms over the past few days as well. Discomfort is somewhat exertional. Patient has difficulty taking a full breath. Patient has had some nausea. No diaphoresis. Patient does have history of similar symptoms previously associated both with reflux and heart disease. Patient did have stent placed several months ago in [place]. Patient states at that time there was an additional area that had partial blockage. Discomfort is currently 3/10. - Related Data Home Medications Medication Instructions Recorded Confirmed Insulin Aspart (For Pump) [NovoLOG 0.01 unit SQ-PUMP CONTINUOUS 04/14/17 04/22/19 (For Pump)] Albuterol Sulfate [Proair Hfa] 1 - 2 puff INHALATION RT-Q6H PRN 03/24/18 04/22/19 Levothyroxine Sodium [Synthroid] 100 mcg PO DAILY 03/24/18 04/22/19 Certolizumab Pegol [Cimzia] 400 mg SQ Q28D 08/20/18 04/22/19 Ezetimibe [Zetia] 10 mg PO HS 08/20/18 04/22/19 Montelukast [Singulair] 10 mg PO HS 08/20/18 04/22/19 Nitroglycerin Sl Tabs [Nitrostat] 0.4 mg SUBLINGUAL Q5M PRN 08/20/18 04/22/19 Cholecalciferol (Vitamin D3) 2,000 unit PO DAILY 04/22/19 04/22/19 [Vitamin D3] Methylphenidate HCl [Concerta] 27 mg PO DAILY PRN 04/22/19 04/22/19 Metoprolol Tartrate [Lopressor] 12.5 mg PO BID 04/22/19 04/22/19 Omeprazole 20 mg PO DAILY 04/22/19 04/22/19 Previous Rx's Medication Instructions Recorded Aspirin 81 mg PO DAILY chew 03/28/18 Atorvastatin [Lipitor] 80 mg PO HS #30 tab 03/28/18 Isosorbide Mononitrate ER [Imdur] 30 mg PO DAILY #30 tab.er.24h 03/28/18 Prasugrel [Effient] 10 mg PO DAILY #90 tab 03/28/18 Allergies Allergy/AdvReac Type Severity Reaction Status Date / Time amoxicillin Allergy Nausea & Verified 04/22/19 19:13 Vomiting infliximab [From Remicade] Allergy Unknown Verified 04/22/19 19:13 tetracycline Allergy Rash/Hives Verified 04/22/19 19:13 3-0 Silk Sutures Allergy Cause Uncoded 04/22/19 18:37 Infection Review of Systems ROS Statement: Those systems with pertinent positive or pertinent negative responses have been documented in the HPI. ROS Other: All systems not noted in ROS Statement are negative. Constitutional: Denies: fever Eyes: Denies: eye pain ENT: Reports: congestion. Denies: ear pain Respiratory: Reports: as per HPI Cardiovascular: Reports: chest pain Endocrine: Denies: fatigue Gastrointestinal: Reports: nausea. Denies: abdominal pain Genitourinary: Denies: dysuria Musculoskeletal: Reports: as per HPI Skin: Denies: rash Neurological: Denies: weakness Past Medical History Past Medical History: Coronary Artery Disease (CAD), Diabetes Mellitus, Hyperlipidemia, Rheumatoid Arthritis (RA), Thyroid Disorder Additional Past Medical History / Comment(s): pt had medullulary thyroid cancer, diabetic retinopathy, and hypercholesterolemia. History of Any Multi-Drug Resistant Organisms: None Reported Past Surgical History: Breast Surgery, Section, Coronary Bypass/CABG, Orthopedic Surgery Additional Past Surgical History / Comment(s): CABG - triple [address] Boris Austin, Benign breast biopsy; Breast reduction: repair of trigger finger; thyroidectomy 2011, Right knee sx, vectrectomy on left eye, cataract Past Anesthesia/Blood Transfusion Reactions: No Reported Reaction Past Psychological History: No Psychological Hx Reported, Depression Smoking Status: Never smoker Past Alcohol Use History: None Reported Past Drug Use History: None Reported - Past Family History Father Family Medical History: Coronary Artery Disease (CAD), CVA/TIA Additional Family Medical History / Comment(s): Father at age 88 with history of CVA and cardiovascular disease, triple bypass at age 69 Mother Family Medical History: Cancer Additional Family Medical History / Comment(s): breast ca at 66 Brother(s) Additional Family Medical History / Comment(s): Patient has 1 brother that has with history of thyroid medullary cancer, he was a [place] vet with exposure to agent orange and complications. Sister(s) Additional Family Medical History / Comment(s): She has one sister that is alive with history of diabetes mellitus type 2. Patient has 2 children with no major medical problems. General Exam Limitations: no limitations General appearance: alert, in no apparent distress Head exam: Present: atraumatic Eye exam: Present: normal appearance, PERRL ENT exam: Present: normal oropharynx Neck exam: Present: normal inspection Respiratory exam: Present: normal lung sounds bilaterally. Absent: chest wall tenderness Cardiovascular Exam: Present: regular rate, normal rhythm Expanded Peripheral pulses: 2+: Radial (R), Radial (L), Dorsalis Pedis (R), Dorsalis Pedis (L) GI/Abdominal exam: Present: soft. Absent: tenderness Extremities exam: Present: normal inspection. Absent: pedal edema, calf tenderness Neurological exam: Present: alert Psychiatric exam: Present: normal affect, normal mood Skin exam: Present: normal color Course Vital Signs 04/22/19 04/22/19 04/22/19 18:33 19:48 20:00 Temperature 98.2 F Pulse Rate 57 L 54 L 56 L Respiratory 16 20 20 Rate Blood Pressure 113/50 128/57 126/56 O2 Sat by Pulse 98 98 97 Oximetry - Reevaluation(s) Reevaluation #1: 04/22/19 20:09 Patient reevaluated and resting comfortably in bed. Patient and family updated on results. Patient states following her stent placement in [place] she did follow-up with a string laster and [facility], Dr. Erazo was recommended. She states they did review her cath results. Patient reportedly has a narrowed vessel near one of her stents that was determined may need intervention in the future. She states this is something her string laster Dr. kaplan here is unable to manage. 04/22/19 20:23 Patient states she did take her Effient today around 1:30. Case was discussed with Dr. Gramajo at [facility], who will accept patient for transfer. Patient and updated. EKG Findings - EKG Comments: EKG Findings:: Sinus bradycardia 56. AK 170. QRS 94. QT 428. QTC 413. Normal axis. Normal QRS. T wave inversion V2 through V6 as well as aVL. Borderline ST change and a VRP previous EKG reviewed from 08/23/2018 Medical Decision Making - Lab Data Result diagrams: 04/22/19 18:55 04/22/19 18:55 Lab Results 04/22/19 04/22/19 04/22/19 Range/Units 18:55 18:55 18:55 WBC 12.1 H (3.8-10.6) k/uL RBC 4.33 (3.80-5.40) m/uL Hgb 12.5 (11.4-16.0) gm/dL Hct 37.5 (34.0-46.0) % MCV 86.6 (80.0-100.0) fL MCH 28.9 (25.0-35.0) pg MCHC 33.4 (31.0-37.0) g/dL RDW 14.1 (11.5-15.5) % Plt Count 350 (150-450) k/uL Neutrophils % 80 % Lymphocytes % 13 % Monocytes % 5 % Eosinophils % 2 % Basophils % 0 % Neutrophils # 9.7 H (1.3-7.7) k/uL Lymphocytes # 1.5 (1.0-4.8) k/uL Monocytes # 0.6 (0-1.0) k/uL Eosinophils # 0.2 (0-0.7) k/uL Basophils # 0.0 (0-0.2) k/uL PT 10.1 (9.0-12.0) sec INR 0.9 (<1.2) APTT 22.2 (22.0-30.0) sec D-Dimer <0.17 (<0.60) mg/L FEU Sodium 136 L (137-145) mmol/L Potassium 4.2 (3.5-5.1) mmol/L Chloride 98 (98-107) mmol/L Carbon Dioxide 25 (22-30) mmol/L Anion Gap 13 mmol/L BUN 21 H (7-17) mg/dL Creatinine 0.74 (0.52-1.04) mg/dL Est GFR (CKD-EPI)AfAm >90 (>60 ml/min/1.73 sqM) Est GFR (CKD-EPI)NonAf >90 (>60 ml/min/1.73 sqM) Glucose 283 H (74-99) mg/dL Calcium 9.8 (8.4-10.2) mg/dL Magnesium 1.7 (1.6-2.3) mg/dL Total Bilirubin 1.2 (0.2-1.3) mg/dL AST 34 (14-36) U/L ALT 24 (9-52) U/L Alkaline Phosphatase 86 (38-126) U/L Creatine Kinase 220 H (30-135) U/L Troponin I (0.000-0.034) ng/mL Total Protein 7.0 (6.3-8.2) g/dL Albumin 4.0 (3.5-5.0) g/dL Amylase 39 (30-110) U/L Lipase 38 (23-300) U/L / Range/Units 18:55 WBC (3.8-10.6) k/uL RBC (3.80-5.40) m/uL Hgb (11.4-16.0) gm/dL Hct (34.0-46.0) % MCV (80.0-100.0) fL MCH (25.0-35.0) pg MCHC (31.0-37.0) g/dL RDW (11.5-15.5) % Plt Count (150-450) k/uL Neutrophils % % Lymphocytes % % Monocytes % % Eosinophils % % Basophils % % Neutrophils # (1.3-7.7) k/uL Lymphocytes # (1.0-4.8) k/uL Monocytes # (0-1.0) k/uL Eosinophils # (0-0.7) k/uL Basophils # (0-0.2) k/uL PT (9.0-12.0) sec INR (<1.2) APTT (22.0-30.0) sec D-Dimer (<0.60) mg/L FEU Sodium (137-145) mmol/L Potassium (3.5-5.1) mmol/L Chloride (98-107) mmol/L Carbon Dioxide (22-30) mmol/L Anion Gap mmol/L BUN (7-17) mg/dL Creatinine (0.52-1.04) mg/dL Est GFR (CKD-EPI)AfAm (>60 ml/min/1.73 sqM) Est GFR (CKD-EPI)NonAf (>60 ml/min/1.73 sqM) Glucose (74-99) mg/dL Calcium (8.4-10.2) mg/dL Magnesium (1.6-2.3) mg/dL Total Bilirubin (0.2-1.3) mg/dL AST (14-36) U/L ALT (9-52) U/L Alkaline Phosphatase (38-126) U/L Creatine Kinase (30-135) U/L Troponin I 1.550 H* (0.000-0.034) ng/mL Total Protein (6.3-8.2) g/dL Albumin (3.5-5.0) g/dL Amylase (30-110) U/L Lipase (23-300) U/L Critical Care Time Critical Care Time: Yes Total Critical Care Time: 34 Disposition Clinical Impression: NSTEMI (non-ST elevated myocardial infarction) Disposition: OTHER INSTITUTION NOT DEFINED Referrals: Colin Huertas MD [Primary Care Provider] - 1-2 days Time of Disposition: 20:13 - Out of Hospital Transfer - Req. Specs Out of Hospital Transfer - Requested Specifics: Cardiac ICU ([facility])
[2019-04-22 19:11] LABS: Basophils % (A) 0 %; Eosinophils # (A) 0.2 k/uL (0-0.7); Eosinophils % (A) 2 %; HCT 37.5 % (34.0-46.0); HGB 12.5 gm/dL (11.4-16.0); Lymphocytes # (A) 1.5 k/uL (1.0-4.8); Lymphocytes % (A) 13 %; MCH 28.9 pg (25.0-35.0); MCHC 33.4 g/dL (31.0-37.0); MCV 86.6 fL (80.0-100.0); Mean Platelet Volume 6.8; Monocytes # (A) 0.6 k/uL (0-1.0); Monocytes % (A) 5 %; Neutrophils # (A) 9.7 k/uL (1.3-7.7); Neutrophils % (A) 80 %; Platelet Count 350 k/uL (150-450); RBC 4.33 m/uL (3.80-5.40); RDW 14.1 % (11.5-15.5); WBC 12.1 k/uL (3.8-10.6)
[2019-04-22 19:20] LABS: ALT 24 U/L (9-52); AST 34 U/L (14-36); African American GFR (CKD) >90 (>60 ml/min/1.73 sqM); Alkaline Phosphatase 86 U/L (38-126); Amylase 39 U/L (30-110); Anion Gap 13 mmol/L; Blood Urea Nitrogen 21 mg/dL (7-17); Calcium 9.8 mg/dL (8.4-10.2); Carbon Dioxide 25 mmol/L (22-30); Chloride 98 mmol/L (98-107); Creatine Kinase 220 U/L (30-135); Glucose 283 mg/dL (74-99); Magnesium 1.7 mg/dL (1.6-2.3); Non-African American GFR(CKD) >90 (>60 ml/min/1.73 sqM); Potassium 4.2 mmol/L (3.5-5.1); Sodium 136 mmol/L (137-145); Total Bilirubin 1.2 mg/dL (0.2-1.3)
[2019-04-22 19:26] LABS: D-Dimer <0.17 mg/L FEU (<0.60); INR 0.9 (<1.2); Partial Thromboplastin Time 22.2 sec (22.0-30.0); Prothrombin Time 10.1 sec (9.0-12.0)
--- NOTE | 2019-04-22 19:26 | XR ---
EXAMINATION TYPE: XR chest 2V DATE OF EXAM: 04/22/2019 COMPARISON: 03/02/2019 HISTORY: Chest pain TECHNIQUE: Frontal and lateral views of the chest are obtained. FINDINGS: Heart and mediastinum are normal. Lungs are clear. There are sternal wires. Diaphragm is n ormal. There are chest leads. Bony thorax is intact. Pulmonary vascularity is normal. IMPRESSION: Normal chest. No change.
[2019-04-22] MEDS ORDERED: MORPHINE SULFATE 4 MG/ML SYRINGE IV STA (20:08)
[2019-04-22] MEDS ORDERED: FAMOTIDINE 20 MG/2 ML VIAL IV STA (20:08)
[2019-04-22] MEDS ORDERED: HEPARIN SODIUM,PORCINE 5,000 UNIT/ML 1 ML VIAL IV ONE (20:09)
[2019-04-22] MEDS ORDERED: HEPARIN SODIUM,PORCINE 5,000 UNIT/ML 1 ML VIAL IV PRN (20:09)
[2019-04-22] MEDS ORDERED: ATORVASTATIN 80 MG TAB PO STA (20:12)
[2019-04-22] MEDS ORDERED: HEPARIN SOD,PORK IN 0.45% NACL 25,000 UNIT in 0.45% NACL 1 250ML.BAG IV SCH (20:15)
[2019-04-22] MEDS ORDERED: ONDANSETRON 4 MG/2 ML VIAL IVP STA (20:46)
[2019-04-22 21:03] VITALS: BP 126/74; PULSE 57; RESP 18; TEMP 98.3
== END 2019-04-22 21:44 | disposition other institution (70) ==
LOC: EC 18:32
DX: I21.4 Non-ST elevation (NSTEMI) myocardial infarction (principal); I25.10 Atherosclerotic heart disease of native coronary artery without angina pectoris; E11.9 Type 2 diabetes mellitus without complications; E78.5 Hyperlipidemia, unspecified; M06.9 Rheumatoid arthritis, unspecified; Z85.850 Personal history of malignant neoplasm of thyroid; Z95.1 Presence of aortocoronary bypass graft; Z82.49 Family history of ischemic heart disease and other diseases of the circulatory system; Z79.4 Long term (current) use of insulin; Z79.890 Hormone replacement therapy; Z79.899 Other long term (current) drug therapy; Z88.0 Allergy status to penicillin; Z88.1 Allergy status to other antibiotic agents; Z91.048 Other nonmedicinal substance allergy status
CPT/HCPCS: 36415; 93005; 85379; 80053; 82150; 82550; 83690; 83735; 84484; 85025; 85610; 85730; 71046; 99291; 96365; 96375 ×3; 96376; J2270; J1644 ×2; J2405

== ENCOUNTER → 2019-05-11 | Outpatient (CLI) | payer BC ==
[2019-05-11 15:20] LABS: HCT 31.1 % (34.0-46.0); HGB 10.2 gm/dL (11.4-16.0); MCH 29.1 pg (25.0-35.0); MCHC 32.8 g/dL (31.0-37.0); MCV 88.9 fL (80.0-100.0); Mean Platelet Volume 6.2; Platelet Count 526 k/uL (150-450); RDW 13.8 % (11.5-15.5)
[2019-05-11 15:34] LABS: Prothrombin Time 10.4 sec (9.0-12.0)
[2019-05-11 19:18] LABS: African American GFR (CKD) 81.7 (60.0-200.0); Anion Gap 8.8 mmol/L (4.00-12.00); BUN/Creat Ratio 32.22 Ratio (12.00-20.00); Calcium 9.5 mg/dL (8.7-10.3); Carbon Dioxide 23.2 mmol/L (21.6-31.8); Magnesium 1.8 mg/dL (1.5-2.4); Potassium 4.4 mmol/L (3.5-5.5)
== END | disposition home or self-care (01) ==
LOC: LABWHC1 13:53
PROVIDERS: ATTEND Internal Medicine Interventional Cardiology
DX: I25.118 Atherosclerotic heart disease of native coronary artery with other forms of angina pectoris (principal)
CPT/HCPCS: 36415; 80048; 83735; 85027; 85610

== ENCOUNTER → 2019-07-09 | Outpatient (CLI) | payer BC ==
[2019-07-09 17:44] LABS: African American GFR (CKD) 94.2 (60.0-200.0); Albumin 4.2 g/dL (3.80-4.90); Albumin/Globulin Ratio 1.83 (1.60-3.17); Anion Gap 10.2 mmol/L (4.00-12.00); Calcium 9.4 mg/dL (8.7-10.3); Carbon Dioxide 22.8 mmol/L (21.6-31.8); Chol/HDL Ratio 2.88; Globulin 2.3 g/dL (1.6-3.3); LDL Cholesterol,Calculated 62.8 mg/dL (0.0-131.0); Potassium 4.7 mmol/L (3.5-5.5); Total Bilirubin 0.6 mg/dL (0.2-1.2); Total Protein 6.5 g/dL (6.2-8.2); VLDL Calculation 18.2 mg/dL (5.00-40.00)
== END | disposition home or self-care (01) ==
LOC: LABWHC1 09:19
PROVIDERS: ATTEND Nurse Practitioner Family
DX: E78.2 Mixed hyperlipidemia (principal); E03.9 Hypothyroidism, unspecified
CPT/HCPCS: 36415; 80053; 80061; 84443

== ENCOUNTER → 2019-07-26 | Outpatient (CLI) | payer BC ==
[2019-07-26 12:51] LABS: HCT 40.6 % (34.0-46.0); HGB 13.4 gm/dL (11.4-16.0); MCV 87.8 fL (80.0-100.0); Mean Platelet Volume 5.2; Platelet Count 353 k/uL (150-450); RBC 4.62 m/uL (3.80-5.40); RDW 12.7 % (11.5-15.5); WBC 7.1 k/uL (3.8-10.6)
[2019-07-26 13:02] LABS: INR 0.9 (<1.2)
[2019-07-26 20:52] LABS: African American GFR (CKD) 110.7 (60.0-200.0); Anion Gap 10.4 mmol/L (4.00-12.00); BUN/Creat Ratio 32.86 Ratio (12.00-20.00); Calcium 9.3 mg/dL (8.7-10.3); Carbon Dioxide 21.6 mmol/L (21.6-31.8); Magnesium 1.8 mg/dL (1.5-2.4); Non-African American GFR(CKD) 95.5 (60.0-200.0); Potassium 4.8 mmol/L (3.5-5.5)
== END | disposition home or self-care (01) ==
LOC: LABWHC1 11:39
PROVIDERS: ATTEND Internal Medicine Interventional Cardiology
DX: I25.118 Atherosclerotic heart disease of native coronary artery with other forms of angina pectoris (principal)
CPT/HCPCS: 36415; 80048; 83735; 85027; 85610

== ENCOUNTER 2019-07-29 18:04 | Emergency (ER) | payer BC ==
[2019-07-29] MEDS ORDERED: ONDANSETRON 4 MG/2 ML VIAL IVP STA (18:35)
[2019-07-29] MEDS ORDERED: SODIUM CHLORIDE 0.9% 500 ML 500 ML IV STA (18:39)
--- NOTE | 2019-07-29 18:39 | ED ---
Chest Pain HPI - General Chief Complaint: Chest Pain Stated Complaint: Chest pain Time Seen by Provider: 07/29/19 18:16 Source: patient, family, RN notes reviewed Mode of arrival: wheelchair Limitations: no limitations - History of Present Illness Initial Comments: This a 59-year-old female history of coronary artery disease type 1 diabetes rheumatoid arthritis who presents with complaints of elevated heart rate today after exerting herself. She states even doing stairs her heart rate would shoot up. She also is been having heartburn today she did state she has some relief from her nitroglycerin. She has a history of 3 stents she is currently under evaluation for a different type of procedure as her stents tend to close up she states. He states he may have increased heartburn type pain 2/10 severity going to her shoulder blades at times. At this time she is symptom free no recent fevers chills nausea vomiting sweats or other symptoms other than she does state she feels somewhat nauseated at this time MD Complaint: chest pain, other - Related Data Home Medications Medication Instructions Recorded Confirmed Insulin Aspart (For Pump) [NovoLOG 0.01 unit SQ-PUMP CONTINUOUS 04/14/17 07/29/19 (For Pump)] Albuterol Sulfate [Proair Hfa] 1 - 2 puff INHALATION RT-Q6H PRN 03/24/18 07/29/19 Certolizumab Pegol [Cimzia] 400 mg SQ Q28D 08/20/18 07/29/19 Ezetimibe [Zetia] 10 mg PO HS 08/20/18 07/29/19 Montelukast [Singulair] 10 mg PO HS PRN 08/20/18 07/29/19 Nitroglycerin Sl Tabs [Nitrostat] 0.4 mg SUBLINGUAL Q5M PRN 08/20/18 07/29/19 Cholecalciferol (Vitamin D3) 2,000 unit PO DAILY 04/22/19 07/29/19 [Vitamin D3] Metoprolol Tartrate [Lopressor] 12.5 mg PO BID 04/22/19 07/29/19 Levothyroxine Sodium [Synthroid] 88 mcg PO DAILY 07/29/19 07/29/19 Previous Rx's Medication Instructions Recorded Aspirin 81 mg PO DAILY chew 03/28/18 Atorvastatin [Lipitor] 80 mg PO HS #30 tab 03/28/18 Isosorbide Mononitrate ER [Imdur] 30 mg PO DAILY #30 tab.er.24h 03/28/18 Prasugrel [Effient] 10 mg PO DAILY #90 tab 03/28/18 Allergies Allergy/AdvReac Type Severity Reaction Status Date / Time amoxicillin Allergy Nausea & Verified 07/29/19 19:12 Vomiting infliximab [From Remicade] Allergy Unknown Verified 07/29/19 19:12 tetracycline Allergy Rash/Hives Verified 07/29/19 19:12 3-0 Silk Sutures Allergy Cause Uncoded 07/29/19 18:10 Infection Review of Systems ROS Statement: Those systems with pertinent positive or pertinent negative responses have been documented in the HPI. ROS Other: All systems not noted in ROS Statement are negative. EKG Findings - EKG Results: EKG: interpreted by ZHENG, sinus rhythm (EKG shows a sinus tachycardia of 112. Interval 158 QRS 92 QT since QTC 340/475 possible left atrial enlargement nonspecific inferior configuration this is compared to an EKG dated 04/22/1920 similar configuration) Past Medical History Past Medical History: Coronary Artery Disease (CAD), Diabetes Mellitus, Hyperlipidemia, Myocardial Infarction ([place]), Rheumatoid Arthritis (RA), Thyroid Disorder Additional Past Medical History / Comment(s): pt had medullulary thyroid cancer, diabetic retinopathy, and hypercholesterolemia. History of Any Multi-Drug Resistant Organisms: None Reported Past Surgical History: Breast Surgery, Section, Coronary Bypass/CABG, Orthopedic Surgery Additional Past Surgical History / Comment(s): CABG - triple [address] Boris Austin, Benign breast biopsy; Breast reduction: repair of trigger finger; thyroidectomy 2011, Right knee sx, vectrectomy on left eye, cataract, angioplasty Past Anesthesia/Blood Transfusion Reactions: No Reported Reaction Past Psychological History: No Psychological Hx Reported, Depression Smoking Status: Never smoker Past Alcohol Use History: None Reported Past Drug Use History: None Reported - Past Family History Father Family Medical History: Coronary Artery Disease (CAD), CVA/TIA Additional Family Medical History / Comment(s): Father at age 88 with history of CVA and cardiovascular disease, triple bypass at age 69 Mother Family Medical History: Cancer Additional Family Medical History / Comment(s): breast ca at 66 Brother(s) Additional Family Medical History / Comment(s): Patient has 1 brother that has with history of thyroid medullary cancer, he was a [place] vet with exposure to agent orange and complications. Sister(s) Additional Family Medical History / Comment(s): She has one sister that is alive with history of diabetes mellitus type 2. Patient has 2 children with no major medical problems. General Exam - General Exam Comments Initial Comments: This is a well-developed well-nourished awake alert oriented 3 female Limitations: no limitations General appearance: alert, anxious Head exam: Present: atraumatic, normocephalic, normal inspection Eye exam: Present: normal appearance, PERRL, EOMI. Absent: scleral icterus, conjunctival injection, periorbital swelling ENT exam: Present: normal exam, mucous membranes moist Neck exam: Present: normal inspection, full ROM, other (No stridor JVD or bruits). Absent: tenderness, meningismus, lymphadenopathy Respiratory exam: Present: normal lung sounds bilaterally. Absent: respiratory distress, wheezes, rales, rhonchi, stridor Cardiovascular Exam: Present: regular rate, normal rhythm, normal heart sounds. Absent: systolic murmur, diastolic murmur, rubs, gallop, clicks GI/Abdominal exam: Present: soft, normal bowel sounds. Absent: distended, tenderness, guarding, rebound, rigid Extremities exam: Present: normal inspection, full ROM, normal capillary refill. Absent: tenderness, pedal edema, joint swelling, calf tenderness Back exam: Present: normal inspection Neurological exam: Present: alert, oriented X3, CN II-XII intact Psychiatric exam: Present: normal affect, normal mood Skin exam: Present: warm, dry, intact, normal color. Absent: rash Course Vital Signs 07/29/19 07/29/19 07/29/19 18:07 18:40 19:24 Temperature 98.0 F Pulse Rate 117 H 105 H 88 Respiratory 18 18 18 Rate Blood Pressure 167/68 158/75 152/63 O2 Sat by Pulse 94 L 99 100 Oximetry Chest Pain MDM - MDM I did reevaluate the patient multiple occasions she's had some nausea with no further complaints of discomfort at this time. I had a long discussion with her I did want to admit her to this facility she has requested [facility] in [place] due to the specialty procedure not available here. Dr. Santillan at [facility] who is agreed to set the patient transfer she will be admitted direct admit to the cardiac unit. Critical Care Time Critical Care Time: Yes Critical Care Time: 31 minutes critical care time which includes initial presentation with history physical labs x-rays reevaluation the patient review of old chart is available discussion with the family regarding findings discussion with the admitting physician at [facility] documentation of the above discussion with medics prior to transfer Disposition Clinical Impression: Unstable angina pectoris Disposition: OTHER INSTITUTION NOT DEFINED Condition: Stable Referrals: Colin Huertas MD [Primary Care Provider] - 1-2 days - Out of Hospital Transfer - Req. Specs Out of Hospital Transfer - Requested Specifics: Cardiac ICU
[2019-07-29 19:02] LABS: Basophils # (A) 0.1 k/uL (0-0.2); Basophils % (A) 1 %; Eosinophils # (A) 0.5 k/uL (0-0.7); Eosinophils % (A) 7 %; HCT 40.5 % (34.0-46.0); HGB 13.6 gm/dL (11.4-16.0); Lymphocytes # (A) 1.6 k/uL (1.0-4.8); Lymphocytes % (A) 22 %; MCH 29.3 pg (25.0-35.0); MCHC 33.4 g/dL (31.0-37.0); MCV 87.6 fL (80.0-100.0); Mean Platelet Volume 5.2; Monocytes # (A) 0.4 k/uL (0-1.0); Monocytes % (A) 6 %; Neutrophils # (A) 4.5 k/uL (1.3-7.7); Neutrophils % (A) 63 %; Platelet Count 364 k/uL (150-450); RBC 4.62 m/uL (3.80-5.40); RDW 12.6 % (11.5-15.5); WBC 7.2 k/uL (3.8-10.6)
[2019-07-29 19:13] LABS: ALT 38 U/L (9-52); AST 30 U/L (14-36); African American GFR (CKD) >90 (>60 ml/min/1.73 sqM); Albumin 4.4 g/dL (3.5-5.0); Alkaline Phosphatase 117 U/L (38-126); Anion Gap 11 mmol/L; Blood Urea Nitrogen 23 mg/dL (7-17); Calcium 10.1 mg/dL (8.4-10.2); Carbon Dioxide 24 mmol/L (22-30); Chloride 105 mmol/L (98-107); Creatine Kinase 59 U/L (30-135); Glucose 233 mg/dL (74-99); Magnesium 1.8 mg/dL (1.6-2.3); Non-African American GFR(CKD) >90 (>60 ml/min/1.73 sqM); Sodium 140 mmol/L (137-145); Total Bilirubin 0.5 mg/dL (0.2-1.3); Total Protein 7.7 g/dL (6.3-8.2)
--- NOTE | 2019-07-29 19:13 | XR ---
EXAMINATION TYPE: XR chest 2V DATE OF EXAM: 07/29/2019 COMPARISON: Prior chest x-ray 04/22/2019 HISTORY: Chest pain TECHNIQUE: Frontal and lateral views of the chest are obtained. FINDINGS: Patient is post median sternotomy. There are overlying cardiac leads. There is no focal air space opacity, pleural effusion, or pneumothorax seen. The cardiac silhouette size is within normal limits. The osseous structures are intact. IMPRESSION: No acute cardiopulmonary process.
[2019-07-29 19:14] LABS: INR 0.9 (<1.2); Prothrombin Time 9.7 sec (9.0-12.0)
[2019-07-29] MEDS ORDERED: HEPARIN SODIUM,PORCINE 5,000 UNIT/ML 1 ML VIAL IV ONE (19:47)
[2019-07-29] MEDS ORDERED: HEPARIN SODIUM,PORCINE 5,000 UNIT/ML 1 ML VIAL IV PRN (19:47)
[2019-07-29] MEDS ORDERED: NITROGLYCERIN OINT 1 INCH/GM PACKET TOPICAL STA (19:59)
[2019-07-29] MEDS ORDERED: HEPARIN SOD,PORK IN 0.45% NACL 25,000 UNIT in 0.45% NACL 1 250ML.BAG IV SCH (20:00)
[2019-07-29 21:35] VITALS: RESP 16
[2019-07-29] MEDS ORDERED: MONTELUKAST 10 MG TAB PO PRN (22:57)
[2019-07-30 02:34] VITALS: BP 166/78; PULSE 88; TEMP 98.1
[2019-07-30] MEDS ORDERED: INSULIN ASPART (NovoLOG) 100 UNIT/ML VIAL SQ SCH (07:30)
[2019-07-30] MEDS ORDERED: METOPROLOL TARTRATE 25 MG TAB PO SCH (09:00)
[2019-07-30] MEDS ORDERED: EZETIMIBE 10 MG TAB PO SCH (21:00)
== END 2019-07-30 03:02 | disposition other institution (70) ==
LOC: EC 18:04
DX: I25.110 Atherosclerotic heart disease of native coronary artery with unstable angina pectoris (principal); E10.319 Type 1 diabetes mellitus with unspecified diabetic retinopathy without macular edema; E78.00 Pure hypercholesterolemia, unspecified; E78.5 Hyperlipidemia, unspecified; I25.2 Old myocardial infarction; F32.9 Major depressive disorder, single episode, unspecified; E07.9 Disorder of thyroid, unspecified; M06.9 Rheumatoid arthritis, unspecified; Z79.4 Long term (current) use of insulin; Z79.890 Hormone replacement therapy; Z79.899 Other long term (current) drug therapy; Z85.850 Personal history of malignant neoplasm of thyroid; Z95.1 Presence of aortocoronary bypass graft; Z82.49 Family history of ischemic heart disease and other diseases of the circulatory system; Z88.0 Allergy status to penicillin; Z88.1 Allergy status to other antibiotic agents; Z88.8 Allergy status to other drugs, medicaments and biological substances; Z91.048 Other nonmedicinal substance allergy status
CPT/HCPCS: 36415; 93005; 83880; 80053; 82550; 83690; 83735; 84484; 85025; 85610; 85730; 71046; 99291; 96374; 96376; 96361; J1644 ×2

== ENCOUNTER 2019-08-05 01:20 | Emergency (ER) | payer BC ==
[2019-08-05 01:26] VITALS: RESP 18
[2019-08-05 02:17] LABS: Basophils # (A) 0.1 k/uL (0-0.2); Basophils % (A) 1 %; Eosinophils # (A) 0.4 k/uL (0-0.7); Eosinophils % (A) 6 %; HCT 41.2 % (34.0-46.0); HGB 13.6 gm/dL (11.4-16.0); Lymphocytes # (A) 1.4 k/uL (1.0-4.8); Lymphocytes % (A) 20 %; MCH 28.6 pg (25.0-35.0); MCV 86.5 fL (80.0-100.0); Mean Platelet Volume 5.7; Monocytes # (A) 0.4 k/uL (0-1.0); Monocytes % (A) 6 %; Neutrophils # (A) 4.2 k/uL (1.3-7.7); Neutrophils % (A) 64 %; Platelet Count 449 k/uL (150-450); RBC 4.77 m/uL (3.80-5.40); RDW 12.7 % (11.5-15.5); WBC 6.6 k/uL (3.8-10.6)
[2019-08-05 02:23] LABS: ALT 30 U/L (9-52); AST 26 U/L (14-36); African American GFR (CKD) >90 (>60 ml/min/1.73 sqM); Albumin 4.5 g/dL (3.5-5.0); Alkaline Phosphatase 122 U/L (38-126); Anion Gap 10 mmol/L; Blood Urea Nitrogen 18 mg/dL (7-17); Calcium 10.2 mg/dL (8.4-10.2); Carbon Dioxide 25 mmol/L (22-30); Chloride 103 mmol/L (98-107); Glucose 230 mg/dL (74-99); INR 0.9 (<1.2); Non-African American GFR(CKD) >90 (>60 ml/min/1.73 sqM); Partial Thromboplastin Time 22.3 sec (22.0-30.0); Potassium 4.7 mmol/L (3.5-5.1); Prothrombin Time 9.8 sec (9.0-12.0); Sodium 138 mmol/L (137-145); Total Bilirubin 0.6 mg/dL (0.2-1.3); Total Protein 7.9 g/dL (6.3-8.2)
--- NOTE | 2019-08-05 02:35 | XR ---
EXAMINATION TYPE: XR chest 2V DATE OF EXAM: 08/05/2019 COMPARISON: 07/29/2019 HISTORY: Dysrhythmia TECHNIQUE: Frontal and lateral views of the chest are obtained. FINDINGS: Heart is normal. Lungs are clear. There are sternal wires. Costophrenic angles are clear. There are chest leads. IMPRESSION: No active cardiopulmonary disease. Normal heart. No change.
[2019-08-05] MEDS ORDERED: SODIUM CHLORIDE 0.9% 500 ML 500 ML IV ONE ×2 (02:37→03:13)
--- NOTE | 2019-08-05 02:38 | ED ---
Arrhythmia/Palpitations HPI - General Chief Complaint: Arrhythmia/Palpitations Stated Complaint: Palpitations Source: patient, family Mode of arrival: wheelchair Limitations: no limitations - History of Present Illness Initial Comments: 59-year-old female presenting today for chief complaint of elevated heart rate. Patient states that she had a bypass 8 years ago, with 2 cardiac catheterizations within the last 4 months she states her most recent was this past Tuesday. Patient states that the days prior to the cardiac catheterization she was having pain between the shoulders chest tightness similar to symptoms in the past when she's had myocardial infarctions. Patient states that today she noticed on her foot but that she was having elevated heart rate she states it va ried from the high 90s to as high as 120 with walking. Patient states this is higher than her usual resting heart rate heart rate with light activity. When this persisted into the evening she felt it was best that she presented to the emergency department. Patient states she has no symptoms of chest pressure or indigestion shoulder pain and jaw pain or arm pain that she's had no past she states that she has no symptoms aside from noticing the elevation of heart rate. Patient states she does not feel as though her heart is racing. Patient states she has only had 1 glass of water this morning, and 1 cup of tea this evening. Patient states her sugars today have varied from 200-390. She states that is higher than usual. Remaining ROS (-). - Related Data Home Medications Medication Instructions Recorded Confirmed Insulin Aspart (For Pump) [NovoLOG 0.01 unit SQ-PUMP CONTINUOUS 04/14/17 07/29/19 (For Pump)] Albuterol Sulfate [Proair Hfa] 1 - 2 puff INHALATION RT-Q6H PRN 03/24/18 07/29/19 Certolizumab Pegol [Cimzia] 400 mg SQ Q28D 08/20/18 07/29/19 Ezetimibe [Zetia] 10 mg PO HS 08/20/18 07/29/19 Montelukast [Singulair] 10 mg PO HS PRN 08/20/18 07/29/19 Nitroglycerin Sl Tabs [Nitrostat] 0.4 mg SUBLINGUAL Q5M PRN 08/20/18 07/29/19 Cholecalciferol (Vitamin D3) 2,000 unit PO DAILY 04/22/19 07/29/19 [Vitamin D3] Metoprolol Tartrate [Lopressor] 12.5 mg PO BID 04/22/19 07/29/19 Levothyroxine Sodium [Synthroid] 88 mcg PO DAILY 07/29/19 07/29/19 Previous Rx's Medication Instructions Recorded Aspirin 81 mg PO DAILY chew 03/28/18 Atorvastatin [Lipitor] 80 mg PO HS #30 tab 03/28/18 Isosorbide Mononitrate ER [Imdur] 30 mg PO DAILY #30 tab.er.24h 03/28/18 Prasugrel [Effient] 10 mg PO DAILY #90 tab 03/28/18 Allergies Allergy/AdvReac Type Severity Reaction Status Date / Time amoxicillin Allergy Nausea & Verified 08/05/19 01:26 Vomiting infliximab [From Remicade] Allergy Unknown Verified 08/05/19 01:26 tetracycline Allergy Rash/Hives Verified 08/05/19 01:26 3-0 Silk Sutures Allergy Cause Uncoded 08/05/19 01:26 Infection Review of Systems ROS Statement: Those systems with pertinent positive or pertinent negative responses have been documented in the HPI. ROS Other: All systems not noted in ROS Statement are negative. Past Medical History Past Medical History: Coronary Artery Disease (CAD), Diabetes Mellitus, H yperlipidemia, Hypertension, Myocardial Infarction ([place]), Rheumatoid Arthritis (RA), Thyroid Disorder Additional Past Medical History / Comment(s): pt had medullulary thyroid cancer, diabetic retinopathy, and hypercholesterolemia. History of Any Multi-Drug Resistant Organisms: None Reported Past Surgical History: Breast Surgery, Section, Coronary Bypass/CABG, Heart Catheterization With Stent, Orthopedic Surgery Additional Past Surgical History / Comment(s): CABG - triple [address] Vimal Cedilloon, Benign breast biopsy; Breast reduction: repair of trigger finger; thyroidectomy 2011, Right knee sx, vectrectomy on left eye, cataract, angioplasty Past Anesthesia/Blood Transfusion Reactions: No Reported Reaction Past Psychological History: No Psychological Hx Reported, Depression Smoking Status: Never smoker Past Alcohol Use History: None Reported Past Drug Use History: None Reported - Past Family History Father Family Medical History: Coronary Artery Disease (CAD), CVA/TIA Additional Family Medical History / Comment(s): Father at age 88 with history of CVA and cardiovascular disease, triple bypass at age 69 Mother Family Medical History: Cancer Additional Family Medical History / Comment(s): breast ca at 66 Brother(s) Additional Family Medical History / Comment(s): Patient has 1 brother that has with history of thyroid medullary cancer, he was a [place] vet with exposure to agent orange and complications. Sister(s) Additional Family Medical History / Comment(s): She has one sister that is alive with history of diabetes mellitus type 2. Patient has 2 children with no major medical problems. General Exam - General Exam Comments Initial Comments: General: The patient is awake and alert, in no distress, and does not appear acutely ill. Eye: +3 mm pupils are equal, round and reactive to light, extra-ocular movements are intact. No nystagmus. There is normal conjunctiva bilaterally. No signs of icterus. Ears, nose, mouth and throat: There are moist mucous membranes and no oral lesions. Neck: The neck is supple, there is no tenderness or JVD. Cardiovascular: There is a regular rate and rhythm. No murmur, rub or gallop is appreciated. Respiratory: Lungs are clear to auscultation, respirations are non-labored, breath sounds are equal. No wheezes, stridor, rales, or rhonchi. Musculoskeletal: Normal ROM, no tenderness. Strength 5/5. Sensation intact. Radial pulses equal bilaterally 2+. Neurological: A&O x 3. CN II-XII intact grossly, There are no obvious motor or sensory deficits. Coordination appears grossly intact. Speech is normal. Skin: Skin is warm and dry and no rashes or lesions are noted. No LE edema. Psychiatric: Cooperative, appropriate mood & affect, normal judgment. Limitations: no limitations Course Vital Signs 08/05/19 08/05/19 01:23 02:26 Temperature 98.4 F 98 F Pulse Rate 115 H 87 Respiratory 18 18 Rate Blood Pressure 166/74 163/75 O2 Sat by Pulse 99 98 Oximetry EKG Findings - EKG Comments: EKG Findings:: Ventricular rate 109 bpm, MS interval 150 ms, QRS duration 94 ms, QT/QTc is 364/490 ms sinus tachycardia with biatrial enlargement, no specific ST elevation or depression. NO significant change from previous EKGs. Medical Decision Making - Medical Decision Making 59yo female presenting for isolated tachycardia with no symptoms. Appears well. No chest pressure/pain. Troponin (-). CXR clear. Femoral site WNL. Dimer (-). EKG no acute findings. TSH elevated (recent decreased in levothyroxine dosage) Elevation of BUN, lips dry, history of decreased oral intake and elevated blood glucose. AFter 1 liter, patient HR is decreasing resting in the 80s. Patient sugar (monitoring with pump downtrending, 163 at 400AM). At this time I feel patient tachycardia due to hypovolemia no symptoms consistent with ACS. Patient case discussed with Dr. Dee he is agreeable to discharge home with f/u. Return parameters discussed at length verbalized understanding. Patient discharged appearing well. - Lab Data Result diagrams: 08/05/19 01:46 12 01:46 Lab Results 08/05/19 08/05/19 08/05/19 Range/Units 01:46 01:46 01:46 WBC 6.6 (3.8-10.6) k/uL RBC 4.77 (3.80-5.40) m/uL Hgb 13.6 (11.4-16.0) gm/dL Hct 41.2 (34.0-46.0) % MCV 86.5 (80.0-100.0) fL MCH 28.6 (25.0-35.0) pg MCHC 33.0 (31.0-37.0) g/dL RDW 12.7 (11.5-15.5) % Plt Count 449 (150-450) k/uL Neutrophils % 64 % Lymphocytes % 20 % Monocytes % 6 % Eosinophils % 6 % Basophils % 1 % Neutrophils # 4.2 (1.3-7.7) k/uL Lymphocytes # 1.4 (1.0-4.8) k/uL Monocytes # 0.4 (0-1.0) k/uL Eosinophils # 0.4 (0-0.7) k/uL Basophils # 0.1 (0-0.2) k/uL PT 9.8 (9.0-12.0) sec INR 0.9 (<1.2) APTT 22.3 (22.0-30.0) sec D-Dimer (<0.60) mg/L FEU Sodium 138 (137-145) mmol/L Potassium 4.7 (3.5-5.1) mmol/L Chloride 103 (98-107) mmol/L Carbon Dioxide 25 (22-30) mmol/L Anion Gap 10 mmol/L BUN 18 H (7-17) mg/dL Creatinine 0.55 (0.52-1.04) mg/dL Est GFR (CKD-EPI)AfAm >90 (>60 ml/min/1.73 sqM) Est GFR (CKD-EPI)NonAf >90 (>60 ml/min/1.73 sqM) Glucose 230 H (74-99) mg/dL Calcium 10.2 (8.4-10.2) mg/dL Magnesium 2.0 (1.6-2.3) mg/dL Total Bilirubin 0.6 (0.2-1.3) mg/dL AST 26 (14-36) U/L ALT 30 (9-52) U/L Alkaline Phosphatase 122 (38-126) U/L Troponin I (0.000-0.034) ng/mL Total Protein 7.9 (6.3-8.2) g/dL Albumin 4.5 (3.5-5.0) g/dL TSH (0.465-4.680) mIU/L 08/05/19 08/05/19 08/05/19 Range/Units 01:46 01:46 01:46 WBC (3.8-10.6) k/uL RBC (3.80-5.40) m/uL Hgb (11.4-16.0) gm/dL Hct (34.0-46.0) % MCV (80.0-100.0) fL MCH (25.0-35.0) pg MCHC (31.0-37.0) g/dL RDW (11.5-15.5) % Plt Count (150-450) k/uL Neutrophils % % Lymphocytes % % Monocytes % % Eosinophils % % Basophils % % Neutrophils # (1.3-7.7) k/uL Lymphocytes # (1.0-4.8) k/uL Monocytes # (0-1.0) k/uL Eosinophils # (0-0.7) k/uL Basophils # (0-0.2) k/uL PT (9.0-12.0) sec INR (<1.2) APTT (22.0-30.0) sec D-Dimer 0.50 (<0.60) mg/L FEU Sodium (137-145) mmol/L Potassium (3.5-5.1) mmol/L Chloride (98-107) mmol/L Carbon Dioxide (22-30) mmol/L Anion Gap mmol/L BUN (7-17) mg/dL Creatinine (0.52-1.04) mg/dL Est GFR (CKD-EPI)AfAm (>60 ml/min/1.73 sqM) Est GFR (CKD-EPI)NonAf (>60 ml/min/1.73 sqM) Glucose (74-99) mg/dL Calcium (8.4-10.2) mg/dL Magnesium (1.6-2.3) mg/dL Total Bilirubin (0.2-1.3) mg/dL AST (14-36) U/L ALT (9-52) U/L Alkaline Phosphatase (38-126) U/L Troponin I <0.012 (0.000-0.034) ng/mL Total Protein (6.3-8.2) g/dL Albumin (3.5-5.0) g/dL TSH 4.820 H (0.465-4.680) mIU/L Disposition Clinical Impression: Tachycardia, Dehydration, Blood glucose elevated Disposition: HOME SELF-CARE Condition: Good Instructions (If sedation given, give patient instructions): Dehydration (ED) Additional Instructions: Please use medication as discussed. Please follow-up with family physician and certified flight instructor this week, please contact them Tuesday to obtain appointment and request records from todays visit. Please return to emergency room if the symptoms increase or worsen or for any other concerns. Is patient prescribed a controlled substance at d/c from ED?: No Referrals: Colin Huertas MD [Primary Care Provider] - 1-2 days Time of Disposition: 04:16
[2019-08-05] MEDS ORDERED: SODIUM CHLORIDE 0.9% 1,000 ML IV SCH (02:45)
[2019-08-05 03:24] VITALS: TEMP 98
[2019-08-05 05:20] VITALS: BP 150/78; PULSE 80
[2019-08-05 05:59] LABS: T4, Free (Free Thyroxine) 1.42 ng/dL (0.78-2.19)
== END 2019-08-05 05:23 | disposition home or self-care (01) ==
LOC: EC 01:20
DX: R00.0 Tachycardia, unspecified (principal); E86.0 Dehydration; E11.65 Type 2 diabetes mellitus with hyperglycemia; E03.9 Hypothyroidism, unspecified; R79.89 Other specified abnormal findings of blood chemistry; I25.10 Atherosclerotic heart disease of native coronary artery without angina pectoris; E78.5 Hyperlipidemia, unspecified; I10 Essential (primary) hypertension; I25.2 Old myocardial infarction; M06.9 Rheumatoid arthritis, unspecified; E78.00 Pure hypercholesterolemia, unspecified; Z85.850 Personal history of malignant neoplasm of thyroid; Z95.1 Presence of aortocoronary bypass graft; Z95.5 Presence of coronary angioplasty implant and graft; Z82.49 Family history of ischemic heart disease and other diseases of the circulatory system; Z79.4 Long term (current) use of insulin; Z79.890 Hormone replacement therapy; Z79.899 Other long term (current) drug therapy; Z88.0 Allergy status to penicillin; Z88.1 Allergy status to other antibiotic agents; Z91.048 Other nonmedicinal substance allergy status; Z88.8 Allergy status to other drugs, medicaments and biological substances
CPT/HCPCS: 36415; 71046; 80053; 83735; 84439; 84443; 84484; 85025; 85379; 85610; 85730; 93005; 99285

== ENCOUNTER 2020-02-22 21:40 | Emergency (ER) | payer BC ==
[2020-02-22 21:45] VITALS: TEMP 98.2
[2020-02-22] MEDS ORDERED: ASPIRIN 325 MG TAB PO STA (22:09)
[2020-02-22] MEDS ORDERED: NITROGLYCERIN-D5W PMX 50 MG in DEXTROSE/WATER 1 250ML.BAG IV ONE (22:11)
[2020-02-22] MEDS ORDERED: HEPARIN SODIUM,PORCINE 5,000 UNIT/ML 1 ML VIAL IV PRN (22:17)
[2020-02-22] MEDS ORDERED: HEPARIN SODIUM,PORCINE 5,000 UNIT/ML 1 ML VIAL IV ONE (22:17)
[2020-02-22 22:18] LABS: Basophils # (A) 0.1 k/uL (0-0.2); Basophils % (A) 1 %; Eosinophils # (A) 0.5 k/uL (0-0.7); Eosinophils % (A) 8 %; HCT 42.9 % (34.0-46.0); HGB 13.4 gm/dL (11.4-16.0); Lymphocytes # (A) 1.5 k/uL (1.0-4.8); Lymphocytes % (A) 25 %; MCH 28.2 pg (25.0-35.0); MCHC 31.3 g/dL (31.0-37.0); MCV 90.2 fL (80.0-100.0); Mean Platelet Volume 6.5; Monocytes # (A) 0.5 k/uL (0-1.0); Monocytes % (A) 8 %; Neutrophils # (A) 3.2 k/uL (1.3-7.7); Neutrophils % (A) 55 %; Platelet Count 316 k/uL (150-450); RBC 4.76 m/uL (3.80-5.40); RDW 12.2 % (11.5-15.5); WBC 5.9 k/uL (3.8-10.6)
[2020-02-22 22:29] LABS: Albumin 4.4 g/dL (3.5-5.0); Calcium 9.7 mg/dL (8.4-10.2); Magnesium 1.9 mg/dL (1.6-2.3); Potassium 4.6 mmol/L (3.5-5.1); Total Bilirubin 0.6 mg/dL (0.2-1.3)
[2020-02-22] MEDS ORDERED: HEPARIN SOD,PORK IN 0.45% NACL 25,000 UNIT in 0.45% NACL 1 250ML.BAG IV SCH (22:30)
[2020-02-22 22:33] LABS: INR 0.9 (<1.2); Prothrombin Time 9.7 sec (9.0-12.0)
[2020-02-22 22:36] LABS: Partial Thromboplastin Time 20.7 sec (22.0-30.0)
--- NOTE | 2020-02-22 22:43 | ED ---
General Adult HPI - General Chief complaint: Chest Pain Stated complaint: Chest pain Time Seen by Provider: 02/22/20 21:48 Source: patient, RN notes reviewed, old records reviewed Mode of arrival: ambulatory Limitations: no limitations - History of Present Illness Initial comments: 59-year-old female with extensive cardiac history, type I diabetic presenting for evaluation of an episode of chest pain, chest tightness with radiation to the arms. This was relieved with 2 sublingual nitroglycerin. Patient is on 2 antiplatelet therapy. She's had multiple stents, triple-vessel bypass in the past and multiple procedures at outside hospitals regarding her extensive coronary artery disease. - Related Data Home Medications Medication Instructions Recorded Confirmed Insulin Aspart (For Pump) [NovoLOG 0.01 unit SQ-PUMP CONTINUOUS 04/14/17 07/29/19 (For Pump)] Albuterol Sulfate [Proair Hfa] 1 - 2 puff INHALATION RT-Q6H PRN 03/24/18 07/29/19 Certolizumab Pegol [Cimzia] 400 mg SQ Q28D 08/20/18 07/29/19 Ezetimibe [Zetia] 10 mg PO HS 08/20/18 07/29/19 Montelukast [Singulair] 10 mg PO HS PRN 08/20/18 07/29/19 Nitroglycerin Sl Tabs [Nitrostat] 0.4 mg SUBLINGUAL Q5M PRN 08/20/18 07/29/19 Cholecalciferol (Vitamin D3) 2,000 unit PO DAILY 04/22/19 07/29/19 [Vitamin D3] Metoprolol Tartrate [Lopressor] 12.5 mg PO BID 04/22/19 07/29/19 Levothyroxine Sodium [Synthroid] 88 mcg PO DAILY 07/29/19 07/29/19 Previous Rx's Medication Instructions Recorded Aspirin 81 mg PO DAILY chew 03/28/18 Atorvastatin [Lipitor] 80 mg PO HS #30 tab 03/28/18 Isosorbide Mononitrate ER [Imdur] 30 mg PO DAILY #30 tab.er.24h 03/28/18 Prasugrel [Effient] 10 mg PO DAILY #90 tab 03/28/18 Allergies Allergy/AdvReac Type Severity Reaction Status Date / Time amoxicillin Allergy Nausea & Verified 02/22/20 21:45 Vomiting infliximab [From Remicade] Allergy Unknown Verified 02/22/20 21:45 tetracycline Allergy Rash/Hives Verified 02/22/20 21:45 3-0 Silk Sutures Allergy Cause Uncoded 02/22/20 21:45 Infection Review of Systems ROS Statement: Those systems with pertinent positive or pertinent negative responses have been documented in the HPI. ROS Other: All systems not noted in ROS Statement are negative. Past Medical History Past Medical History: Coronary Artery Disease (CAD), Diabetes Mellitus, Hyperlipidemia, Hypertension, Myocardial Infarction (AR), Rheumatoid Arthritis (RA), Thyroid Disorder Additional Past Medical History / Comment(s): pt had medullulary thyroid cancer, diabetic retinopathy, and hypercholesterolemia. History of Any Multi-Drug Resistant Organisms: None Reported Past Surgical History: Breast Surgery, Section, Coronary Bypass/CABG, Heart Catheterization With Stent, Orthopedic Surgery Additional Past Surgical History / Comment(s): CABG - triple [address] Boris Austin, Benign breast biopsy; Breast reduction: repair of trigger finger; thyroidectomy 2011, Right knee sx, vectrectomy on left eye, cataract, angioplasty Past Anesthesia/Blood Transfusion Reactions: No Reported Reaction Past Psychological History: No Psychological Hx Reported, Depression Smoking Status: Never smoker Past Alcohol Use History: None Reported Past Drug Use History: None Reported - Past Family History Father Family Medical History: Coronary Artery Disease (CAD), CVA/TIA Additional Family Medical History / Comment(s): Father at age 88 with history of CVA and cardiovascular disease, triple bypass at age 69 Mother Family Medical History: Cancer Additional Family Medical History / Comment(s): breast ca at 66 Brother(s) Additional Family Medical History / Comment(s): Patient has 1 brother that has with history of thyroid medullary cancer, he was a [place] vet with exposure to agent orange and complications. Sister(s) Additional Family Medical History / Comment(s): She has one sister that is alive with history of diabetes mellitus type 2. Patient has 2 children with no major medical problems. General Exam Limitations: no limitations General appearance: alert, in no apparent distress Head exam: Present: atraumatic, normocephalic Eye exam: Present: normal appearance, PERRL ENT exam: Present: normal exam Neck exam: Present: normal inspection. Absent: tenderness, meningismus Respiratory exam: Present: normal lung sounds bilaterally. Absent: respiratory distress, wheezes Cardiovascular Exam: Present: regular rate, normal rhythm GI/Abdominal exam: Present: soft. Absent: distended, tenderness, guarding Extremities exam: Present: normal inspection, normal capillary refill. Absent: pedal edema, calf tenderness Neurological exam: Present: alert, oriented X3, CN II-XII intact. Absent: motor sensory deficit Psychiatric exam: Present: normal affect, normal mood Skin exam: Present: warm, dry, intact. Absent: cyanosis, diaphoretic Course Vital Signs 02/22/20 02/22/20 02/22/20 21:43 22:00 22:10 Temperature 98.2 F Pulse Rate 87 80 Respiratory 18 18 Rate Blood Pressure 159/72 165/79 O2 Sat by Pulse 98 97 97 Oximetry 02/22/20 02/22/20 02/22/20 22:20 22:40 23:00 Temperature Pulse Rate 85 90 79 Respiratory 17 11 L 18 Rate Blood Pressure 154/63 187/94 164/76 O2 Sat by Pulse 98 98 98 Oximetry 02/23/20 00:46 Temperature Pulse Rate 73 Respiratory 18 Rate Blood Pressure 134/61 O2 Sat by Pulse 98 Oximetry - Reevaluation(s) Reevaluation #1: 02/22/20 22:[address] Rowley, we will fax EKGs, patient is comfortable at this time. Initial recommendation for heparin, nitroglycerin, and ICU placement. Reevaluation #2: 02/22/20 22:20 Case again discussed with Dr. Rowley covering for cardiology, at this time patient is requesting transfer to [facility] where her safety inspector is. Dr. Rowley agreeable with respecting the patient's wishes for transfer. 02/25/20 07:47 Reevaluation #3: 02/22/20 23:20 Patient chest pain-free, awaiting transfer to [facility]. 02/25/20 07:47 EKG Findings - EKG Comments: EKG Findings:: EKG initial EKG at [address] segment depression, elevation in aVR, rate of 89, CO interval 194, QRS duration 116, QTC 481. Repeat EKG at 20 200, normal sinus rhythm, rate of 84, CO interval 184 over QRS duration 104, improved ST segment depression, minimal ST segment elevation in aVR Medical Decision Making - Medical Decision Making 59-year-old with extensive coronary artery disease, status post bypass, multiple stenting, presenting with typical chest pain. Initial EKG showing diffuse ST segment depression, very concerning EKG, case discussed with cardiology immediately Dr. Monsalve who is very familiar with this patient. Patient has undergone several heart cath procedures since her most recent one at this institution which was in 2018. These procedures were performed at [facility]. Patient is requesting transfer. Her is at bedside, attempts have been made by the patient to contact the call center receptionist at [place] [id number]. I did discuss case with Dr. Lagos at [facility] who will accept this patient for transfer. Chest x-ray, negative for acute cardiopulmonary disease. CBC, showing normal white blood cell count, stable hemoglobin. Patient has complete metabolic panel which shows hyperglycemia blood sugar 380. Patient did adjust her insulin pump. - Lab Data Result diagrams: 02/22/20 22:02 02/22/20 22:02 Lab Results 02/22/20 02/22/20 02/22/20 Range/Units 22:02 22:02 22:02 WBC 5.9 (3.8-10.6) k/uL RBC 4.76 (3.80-5.40) m/uL Hgb 13.4 (11.4-16.0) gm/dL Hct 42.9 (34.0-46.0) % MCV 90.2 (80.0-100.0) fL MCH 28.2 (25.0-35.0) pg MCHC 31.3 (31.0-37.0) g/dL RDW 12.2 (11.5-15.5) % Plt Count 316 (150-450) k/uL Neutrophils % 55 % Lymphocytes % 25 % Monocytes % 8 % Eosinophils % 8 % Basophils % 1 % Neutrophils # 3.2 (1.3-7.7) k/uL Lymphocytes # 1.5 (1.0-4.8) k/uL Monocytes # 0.5 (0-1.0) k/uL Eosinophils # 0.5 (0-0.7) k/uL Basophils # 0.1 (0-0.2) k/uL PT 9.7 (9.0-12.0) sec INR 0.9 (<1.2) APTT 20.7 L (22.0-30.0) sec Sodium 134 L (137-145) mmol/L Potassium 4.6 (3.5-5.1) mmol/L Chloride 101 (98-107) mmol/L Carbon Dioxide 21 L (22-30) mmol/L Anion Gap 12 mmol/L BUN 27 H (7-17) mg/dL Creatinine 0.97 (0.52-1.04) mg/dL Est GFR (CKD-EPI)AfAm 75 (>60 ml/min/1.73 sqM) Est GFR (CKD-EPI)NonAf 65 (>60 ml/min/1.73 sqM) Glucose 380 H (74-99) mg/dL Calcium 9.7 (8.4-10.2) mg/dL Magnesium 1.9 (1.6-2.3) mg/dL Total Bilirubin 0.6 (0.2-1.3) mg/dL AST 42 H (14-36) U/L ALT 39 H (4-34) U/L Alkaline Phosphatase 136 H (38-126) U/L Troponin I (0.000-0.034) ng/mL NT-Pro-B Natriuret Pep pg/mL Total Protein 8.0 (6.3-8.2) g/dL Albumin 4.4 (3.5-5.0) g/dL Lipase 103 (23-300) U/L 02/22/20 02/22/20 02/22/20 Range/Units 22:02 22:02 22:59 WBC (3.8-10.6) k/uL RBC (3.80-5.40) m/uL Hgb (11.4-16.0) gm/dL Hct (34.0-46.0) % MCV (80.0-100.0) fL MCH (25.0-35.0) pg MCHC (31.0-37.0) g/dL RDW (11.5-15.5) % Plt Count (150-450) k/uL Neutrophils % % Lymphocytes % % Monocytes % % Eosinophils % % Basophils % % Neutrophils # (1.3-7.7) k/uL Lymphocytes # (1.0-4.8) k/uL Monocytes # (0-1.0) k/uL Eosinophils # (0-0.7) k/uL Basophils # (0-0.2) k/uL PT (9.0-12.0) sec INR (<1.2) APTT (22.0-30.0) sec Sodium (137-145) mmol/L Potassium (3.5-5.1) mmol/L Chloride (98-107) mmol/L Carbon Dioxide (22-30) mmol/L Anion Gap mmol/L BUN (7-17) mg/dL Creatinine (0.52-1.04) mg/dL Est GFR (CKD-EPI)AfAm (>60 ml/min/1.73 sqM) Est GFR (CKD-EPI)NonAf (>60 ml/min/1.73 sqM) Glucose (74-99) mg/dL Calcium (8.4-10.2) mg/dL Magnesium (1.6-2.3) mg/dL Total Bilirubin (0.2-1.3) mg/dL AST (14-36) U/L ALT (4-34) U/L Alkaline Phosphatase (38-126) U/L Troponin I <0.012 <0.012 (0.000-0.034) ng/mL NT-Pro-B Natriuret Pep 550 pg/mL Total Protein (6.3-8.2) g/dL Albumin (3.5-5.0) g/dL Lipase (23-300) U/L 20 Range/Units 01:08 WBC (3.8-10.6) k/uL RBC (3.80-5.40) m/uL Hgb (11.4-16.0) gm/dL Hct (34.0-46.0) % MCV (80.0-100.0) fL MCH (25.0-35.0) pg MCHC (31.0-37.0) g/dL RDW (11.5-15.5) % Plt Count (150-450) k/uL Neutrophils % % Lymphocytes % % Monocytes % % Eosinophils % % Basophils % % Neutrophils # (1.3-7.7) k/uL Lymphocytes # (1.0-4.8) k/uL Monocytes # (0-1.0) k/uL Eosinophils # (0-0.7) k/uL Basophils # (0-0.2) k/uL PT (9.0-12.0) sec INR (<1.2) APTT (22.0-30.0) sec Sodium (137-145) mmol/L Potassium (3.5-5.1) mmol/L Chloride (98-107) mmol/L Carbon Dioxide (22-30) mmol/L Anion Gap mmol/L BUN (7-17) mg/dL Creatinine (0.52-1.04) mg/dL Est GFR (CKD-EPI)AfAm (>60 ml/min/1.73 sqM) Est GFR (CKD-EPI)NonAf (>60 ml/min/1.73 sqM) Glucose (74-99) mg/dL Calcium (8.4-10.2) mg/dL Magnesium (1.6-2.3) mg/dL Total Bilirubin (0.2-1.3) mg/dL AST (14-36) U/L ALT (4-34) U/L Alkaline Phosphatase (38-126) U/L Troponin I 0.048 H* (0.000-0.034) ng/mL NT-Pro-B Natriuret Pep pg/mL Total Protein (6.3-8.2) g/dL Albumin (3.5-5.0) g/dL Lipase (23-300) U/L Critical Care Time Critical Care Time: Yes Total Critical Care Time: 35 Disposition Clinical Impression: Acute non-ST elevation myocardial infarction (NSTEMI) Disposition: OTHER INSTITUTION NOT DEFINED Condition: Serious Is patient prescribed a controlled substance at d/c from ED?: No Referrals: Colin Huertas MD [Primary Care Provider] - 1-2 days Time of Disposition: 23:05 - Out of Hospital Transfer - Req. Specs Out of Hospital Transfer - Requested Specifics: Telemetry Unit ([facility])
--- NOTE | 2020-02-22 23:02 | XR ---
EXAMINATION TYPE: XR chest 1V portable DATE OF EXAM: 02/22/2020 COMPARISON: NONE HISTORY: Cough TECHNIQUE: 2 views FINDINGS: Heart and mediastinum are normal. Lungs are clear. Diaphragm is normal. Bony thorax is norm al. There are chest leads. There are sternal wires. IMPRESSION: No active cardiopulmonary disease. Normal heart. No change.
[2020-02-22 23:07] VITALS: RESP 18
[2020-02-23 00:47] VITALS: BP 134/61; PULSE 73
== END 2020-02-23 02:34 | disposition other institution (70) ==
LOC: EC 21:40
DX: I21.4 Non-ST elevation (NSTEMI) myocardial infarction (principal); I25.10 Atherosclerotic heart disease of native coronary artery without angina pectoris; I10 Essential (primary) hypertension; E78.5 Hyperlipidemia, unspecified; I25.2 Old myocardial infarction; E78.00 Pure hypercholesterolemia, unspecified; E10.319 Type 1 diabetes mellitus with unspecified diabetic retinopathy without macular edema; E10.65 Type 1 diabetes mellitus with hyperglycemia; Z79.4 Long term (current) use of insulin; Z79.899 Other long term (current) drug therapy; Z79.890 Hormone replacement therapy; Z88.0 Allergy status to penicillin; Z88.1 Allergy status to other antibiotic agents; Z88.8 Allergy status to other drugs, medicaments and biological substances; Z91.048 Other nonmedicinal substance allergy status; Z95.1 Presence of aortocoronary bypass graft; Z85.850 Personal history of malignant neoplasm of thyroid; Z98.61 Coronary angioplasty status
CPT/HCPCS: 99291; 96365; 96366 ×3; 96368; 96376; 36415 ×2; 93005; 83880; 80053; 83690; 83735; 84484 ×2; 85025; 85610; 85730; 71045; J1644 ×2

== ENCOUNTER → 2021-10-28 | Outpatient (CLI) | payer BC ==
[2021-10-28 14:14] LABS: HCT 40.6 % (37.2-46.3); HGB 13.5 g/dL (12.0-15.0); MCH 29.3 pg (27.0-32.0); MCHC 33.3 g/dL (32.0-37.0); MCV 88.3 fL (80.0-97.0); Mean Platelet Volume 8.7 fL (9.5-12.2); NRBC Per 100 WBC 0 /100 WBCS (0.0-0.0); Platelet Count 290 X 10*3/uL (140-440); RDW 12.3 % (11.5-14.5); WBC 5.79 X 10*3/uL (4.50-10.00)
== END | disposition home or self-care (01) ==
LOC: LABWHC1 10:24
PROVIDERS: ATTEND Obstetrics & Gynecology
DX: D64.9 Anemia, unspecified (principal); R53.83 Other fatigue
CPT/HCPCS: 36415; 85027

== ENCOUNTER 2021-11-29 15:30 | Emergency (ER) | payer BC ==
[2021-11-29 15:42] VITALS: BP 95/59; PULSE 67; RESP 18; TEMP 98
[2021-11-29] MEDS ORDERED: OXYMETAZOLINE 0.05% NASL SPRAY 1 SPRAY BOTTLE NASAL STA (16:15)
--- NOTE | 2021-11-29 16:23 | ED ---
General Adult HPI - General Source: patient, RN notes reviewed Mode of arrival: ambulatory Limitations: no limitations <Sandy Alvarez - Last Filed: 11/29/21 18:24> <Kirstin Spence - Last Filed: 11/30/21 21:49> - General Chief complaint: ENT Stated complaint: Bloody Nose Time Seen by Provider: 11/29/21 16:01 - History of Present Illness Initial comments: 61-year-old female presents to the emergency department for evaluation of bloody nose, onset 90 minutes prior to arrival. Patient states she does take oral a nticoagulation medicine as she has a history of CABG. States the bleeding began from the right nare and applied direct pressure and inserted packing, then shortly thereafter developed bleeding on the left side. Describes bright red bleeding with minimal clots. Patient denies any injury or trauma to the face. No recent medications changes. Did work out this morning but denies any new activity. States she does have humidified air in the home. (Sandy Alvarez) - Related Data Home Medications Medication Instructions Recorded Confirmed Insulin Aspart (For Pump) [NovoLOG 0.01 unit SQ-PUMP CONTINUOUS 04/14/17 07/29/19 (For Pump)] Albuterol Sulfate [Proair Hfa] 1 - 2 puff INHALATION RT-Q6H PRN 03/24/18 07/29/19 Certolizumab Pegol [Cimzia] 400 mg SQ Q28D 08/20/18 07/29/19 Ezetimibe [Zetia] 10 mg PO HS 08/20/18 07/29/19 Montelukast [Singulair] 10 mg PO HS PRN 08/20/18 07/29/19 Nitroglycerin Sl Tabs [Nitrostat] 0.4 mg SUBLINGUAL Q5M PRN 08/20/18 07/29/19 Cholecalciferol (Vitamin D3) 2,000 unit PO DAILY 04/22/19 07/29/19 [Vitamin D3] Metoprolol Tartrate [Lopressor] 12.5 mg PO BID 04/22/19 07/29/19 Levothyroxine Sodium [Synthroid] 88 mcg PO DAILY 07/29/19 07/29/19 Previous Rx's Medication Instructions Recorded Aspirin 81 mg PO DAILY chew 03/28/18 Atorvastatin [Lipitor] 80 mg PO HS #30 tab 03/28/18 Isosorbide Mononitrate ER [Imdur] 30 mg PO DAILY #30 tab.er.24h 03/28/18 Prasugrel [Effient] 10 mg PO DAILY #90 tab 03/28/18 Allergies Allergy/AdvReac Type Severity Reaction Status Date / Time amoxicillin Allergy Nausea & Verified 11/29/21 15:38 Vomiting infliximab [From Remicade] Allergy Unknown Verified 11/29/21 15:38 tetracycline Allergy Rash/Hives Verified 11/29/21 15:38 3-0 Silk Sutures Allergy Cause Uncoded 02/22/20 21:45 Infection Review of Systems ROS Other: All systems not noted in ROS Statement are negative. <Sandy Alvarez - Last Filed: 11/29/21 18:24> ROS Other: All systems not noted in ROS Statement are negative. <Kirstin Spence - Last Filed: 11/30/21 21:49> ROS Statement: Those systems with pertinent positive or pertinent negative responses have been documented in the HPI. Past Medical History Past Medical History: Coronary Artery Disease (CAD), Diabetes Mellitus, Hyperlipidemia, Hypertension, Myocardial Infarction (SD), Rheumatoid Arthritis (RA), Thyroid Disorder Additional Past Medical History / Comment(s): pt had medullulary thyroid cancer, diabetic retinopathy, and hypercholesterolemia. History of Any Multi-Drug Resistant Organisms: None Reported Past Surgical History: Breast Surgery, Section, Coronary Bypass/CABG, Heart Catheterization With Stent, Orthopedic Surgery Additional Past Surgical History / Comment(s): CABG - triple [address] Boris Austin, Benign breast biopsy; Breast reduction: repair of trigger finger; thyroidectomy 2011, Right knee sx, vectrectomy on left eye, cataract, angioplasty Past Anesthesia/Blood Transfusion Reactions: No Reported Reaction Past Psychological History: Depression Smoking Status: Never smoker Past Alcohol Use History: None Reported Past Drug Use History: None Reported - Past Family History Father Family Medical History: Coronary Artery Disease (CAD), CVA/TIA Additional Family Medical History / Comment(s): Father at age 88 with history of CVA and cardiovascular disease, triple bypass at age 69 Mother Family Medical History: Cancer Additional Family Medical History / Comment(s): breast ca at 66 Brother(s) Additional Family Medical History / Comment(s): Patient has 1 brother that has with history of thyroid medullary cancer, he was a [place] vet with exposure to agent orange and complications. Sister(s) Additional Family Medical History / Comment(s): She has one sister that is alive with history of diabetes mellitus type 2. Patient has 2 children with no major medical problems. <Sandy Alvarez - Last Filed: 11/29/21 18:24> General Exam Limitations: no limitations General appearance: alert, in no apparent distress, other (Well-developed, well- nourished female in no acute distress. Initial temperature 98.0, pulse 67, respirations 18, blood pressure 95/59, pulse ox 100% on room air.) ENT exam: Present: normal oropharynx, TM's normal bilaterally, other (thin bright red bleeding, bilateral nares; no clots ) Neck exam: Present: normal inspection, full ROM. Absent: tenderness, meningismus, lymphadenopathy Respiratory exam: Present: normal lung sounds bilaterally. Absent: respiratory distress, wheezes, rales, rhonchi, stridor Cardiovascular Exam: Present: regular rate, normal rhythm, normal heart sounds. Absent: systolic murmur, diastolic murmur, rubs, gallop, clicks GI/Abdominal exam: Present: soft, normal bowel sounds. Absent: distended, tenderness, guarding, rebound, rigid Neurological exam: Present: alert, oriented X3, CN II-XII intact Psychiatric exam: Present: normal affect, normal mood Skin exam: Present: warm, dry, intact <Sandy Alvarez - Last Filed: 11/29/21 18:24> Course <KimSandy - Last Filed: 11/29/21 18:24> Vital Signs 11/29/21 15:39 Temperature 98 F Pulse Rate 67 Respiratory 18 Rate Blood Pressure 95/59 O2 Sat by Pulse 100 Oximetry - Reevaluation(s) Reevaluation #1: 11/29/21 17:05 Patient's home packing and nasal clamp were removed and patient was asked to blow her nose. Evacuated large clots from bilateral nares. Afrin instilled bilaterally and Afrin-soaked gauze inserted. Patient holding direct pressure with ice applied. Will re-evaluate in 20 minutes. 11/29/21 17:25 NO evidence of re-bleeding. Ice removed. Patient resting comfortably. 11/29/21 17:45 Ice remains off and clamp removed. No additional bleeding. 11/29/21 18:00 Gauze removed. No bleeding. Patient reports improvement. Ambulatory in department and tolerating activity well. (Sandy Alvarez) Medical Decision Making <Sandy Alvarez - Last Filed: 11/29/21 18:24> <Kirstin Spence - Last Filed: 11/30/21 21:49> - Medical Decision Making 61-year-old female with a past medical history of CAD, CABG, and diabetes presents to the emergency department for evaluation of epistaxis. Upon arrival, patient has bright red bleeding from bilateral nares. Onset of bleeding was spontaneous this afternoon and was not accompanied by injury or trauma. Patient had attempted direct pressure at home with no success. While present in the emergency department, Afrin was instilled in bilateral naris along with Afrin- soaked gauze. Patient held pressure with nasal clamp and hemostasis was achieved. Gauze was removed and patient was monitored for an additional 30 minutes. She was then ambulated without any episodes of rebleeding. She denied any dizziness or feelings of lightheadedness. She will be discharged home to follow-up with her PCP for recheck. Epistaxis precautions were advised. Return parameters were discussed in detail. Patient and spouse verbalized understanding and agreed with this plan. Attending: Bebe. (Sandy Alvarez) I was available for consultation in the emergency department. The history and physical exam were done by the midlevel provider. I was consulted for this patients care. I reviewed the case with the midlevel provider and based on their presentation of the patient, I agree with the assessment, medical decision making and plan of care as documented. Chart was dictated using [employer] dictation software. Attempts were made to correct any dictation errors however some typographical errors may persist. (Kirstin Spence) Disposition Is patient prescribed a controlled substance at d/c from ED?: No Time of Disposition: 18:25 <Sandy Alvarez - Last Filed: 11/29/21 18:24> <Kirstin Spence - Last Filed: 11/30/21 21:49> Clinical Impression: Epistaxis not due to trauma Disposition: HOME SELF-CARE Condition: Stable Instructions (If sedation given, give patient instructions): Nosebleed (ED) Additional Instructions: For the next 72 hours, please do not blow your nose or participate in vigorous activity. If you develop any additional episodes of bleeding, spray Afrin in affected nostril then apply clamp for 20 minutes. If bleeding is not controlled in that time, please return to the Emergency Department. Gently apply aquaphor to bilateral nostrils twice daily. Humidified air in sleep room. Follow up with your PCP for a recheck if needed. Return to the emergency department with any new, worsening, or concerning symptoms. Referrals: Colin Huertas MD [Primary Care Provider] - 1-2 days
== END 2021-11-29 18:15 | disposition home or self-care (01) ==
LOC: EC 15:30
DX: R04.0 Epistaxis (principal); E11.9 Type 2 diabetes mellitus without complications; I25.2 Old myocardial infarction; E07.9 Disorder of thyroid, unspecified; Z86.73 Personal history of transient ischemic attack (TIA), and cerebral infarction without residual deficits; Z79.890 Hormone replacement therapy; Z88.0 Allergy status to penicillin; Z88.1 Allergy status to other antibiotic agents; Z88.9 Allergy status to unspecified drugs, medicaments and biological substances
CPT/HCPCS: 99283

== ENCOUNTER → 2023-07-05 | Outpatient (CLI) | payer BC ==
[2023-07-05 14:57] LABS: Ionized Calcium 5.1 mg/dL (4.5-5.3)
[2023-07-05 15:01] LABS: African American GFR (CKD) >90 (>60 ml/min/1.73 sqM); Blood Urea Nitrogen 19 mg/dL (7-17); Non-African American GFR(CKD) >90 (>60 ml/min/1.73 sqM)
--- NOTE | 2023-07-05 21:35 | XR ---
EXAMINATION TYPE: XR chest w obliques, 4 views DATE OF EXAM: 07/05/2023 COMPARISON: 02/22/2020 HISTORY: 63-year-old female R05.9, cough TECHNIQUE: 4 views FINDINGS: Median sternotomy wires and post-CABG clips. Heart normal size. Aorta and pulmonary vasculature are w ithin normal limits. Coronary stent noted. No consolidation or pleural effusion. Some surgical clips at the base of the neck. IMPRESSION: Post-CABG changes. Coronary stent. No acute cardiopulmonary process.
== END | disposition home or self-care (01) ==
LOC: RADXRMAIN 12:33
PROVIDERS: ATTEND Otolaryngology
DX: R05.9 Cough, unspecified (principal); Z95.5 Presence of coronary angioplasty implant and graft
CPT/HCPCS: 71047; 82164; 82330; 82565; 84520; 85652

== ENCOUNTER → 2023-10-13 | Day surgery (SDC) | payer BC ==
[2023-10-11 13:04] VITALS: BMI 26.8
[~2023-10-13] MED LIST: ACETAMINOPHEN TAB 500 MG TAB ONE; HYDROmorphone 0.5 MG/0.5 ML SYRINGE IVP PRN; LIDOCAINE 1% (10MG/ML) FOR IV START INTRADERMA PRN; LIDOCAINE 1% INJ 10MG/ML (20 ML MDV) ONE; MIDAZOLAM 2 MG/2 ML VIAL IV PRN; PROPOFOL 10 MG/ML 20 ML VIAL IV ONE; Pre Op ABX Message 1 EACH MISC MISCELLANE ONE; ROCURONIUM 10 MG/ML (5 ML VIAL) IV ONE; SUCCINYLCHOLINE CHLORIDE 200 MG/10 ML VIAL IV ONE; fentaNYL (PF) 50 MCG/ML 2 ML AMP ONE
[2023-10-13] MEDS: OXYMETAZOLINE 0.05% NASL SPRAY 1 SPRAY BOTTLE EA NOSTRIL PRN (11:57)
[2023-10-13 12:31] LABS: Glucose,Whole Blood 216 mg/dL (70-110)
[2023-10-13 12:32] VITALS: RESP 16
[2023-10-13] MEDS: LACTATED RINGERS 1,000 ML IV SCH (12:33)
[2023-10-13] MEDS: DEXAMETHASONE SOD PHOSPHATE 4 MG/ML 1 ML VIAL IV ONE (12:35)
[2023-10-13] MEDS: FAMOTIDINE 20 MG/2 ML VIAL IV PRN (12:35)
[2023-10-13] MEDS: ONDANSETRON 4 MG/2 ML VIAL IVP ONE (12:35)
[2023-10-13 14:37] VITALS: TEMP 96.8
--- NOTE | 2023-10-13 14:51 | P.OP ---
Date of Procedure: 10/13/23 Preoperative Diagnosis: Nasopharyngeal mass Postoperative Diagnosis: Same Procedure(s) Performed: Excision of a nasopharyngeal mass Anesthesia: RACHELE Surgeon: Emory Robles Pathology: other (Nasopharyngeal mass) Condition: stable Disposition: PACU Indications for Procedure: Patient was found have a nasopharyngeal mass suspicious irregular surgical removal for biopsy purposes as recommended Operative Findings: Patient had an irregular nasopharyngeal mass. Brown fluid was seen coming from the central core of the mass upon removal. Description of Procedure: Patient was taken to the operative room and placed in the supine position. A general inhalation anesthetic was administered to the patient by mask and subsequently intubated with a cuffed endotracheal tube by the department of anesthesia with a functioning IV line in place patient was monitored throughout the entire case by the department of anesthesia. A #4 McIvor mouth gag into the patient's mouth with care to avoid any trauma to the lips teeth gums and tongue. Mouth was opened tongue was depressed and the red rubber catheter was placed into the nose and out the mouth used to retract the soft palate. With use of indirect mirror examination a large nasopharyngeal mass was identified. With use of adenoid curettes the mass was removed in its entirety. A brown fluid was seen coming from the central core of this mass. Complete removal was obtained and hemostasis was obtained with use of suction electrocoagulation. Patient was taken to postanesthesia recovery in excellent condition tolerated this well and a follow-up is scheduled for next week.
[2023-10-13] MEDS: ACETAMINOPHEN TAB 500 MG TAB PO ONE (15:25)
[2023-10-13 15:38] VITALS: BP 142/56; PULSE 55
== END ==
LOC: OR 11:38
PROVIDERS: ATTEND Otolaryngology
DX: J35.1 Hypertrophy of tonsils (principal); I10 Essential (primary) hypertension; E78.5 Hyperlipidemia, unspecified; I25.10 Atherosclerotic heart disease of native coronary artery without angina pectoris; I48.91 Unspecified atrial fibrillation; I25.2 Old myocardial infarction; K21.9 Gastro-esophageal reflux disease without esophagitis; E11.9 Type 2 diabetes mellitus without complications; J45.909 Unspecified asthma, uncomplicated; Z79.84 Long term (current) use of oral hypoglycemic drugs; Z79.899 Other long term (current) drug therapy; Z98.890 Other specified postprocedural states
CPT/HCPCS: 31237; 88305; J0330; J1100; J2405; J2001; J3010; J3490; J2704

== ENCOUNTER 2023-10-27 09:15 | Observation (INO) | payer BC ==
[2023-10-27] MEDS: OXYMETAZOLINE 0.05% NASL SPRAY 1 SPRAY BOTTLE NASAL STA (09:50)
--- NOTE | 2023-10-27 11:43 | ED ---
ENT HPI - General Chief complaint: ENT Stated complaint: Nose bleed post op, vomitting Time Seen by Provider: 10/27/23 09:32 Source: patient, RN notes reviewed Mode of arrival: ambulatory Limitations: no limitations - History of Present Illness Initial comments: 63-year-old female presents emergency department chief complaint of epistaxis. Patient states she had nasal surgery 2 weeks ago. Patient states that she had a mass removed from her nasopharynx region. Patient surgeon was Dr. Thrasher. Patient states she vomited last night did not have any bleeding until she blew her nose this morning. Patient states that she had bilateral nasal bleeding, blood in the back of her throat. Patient denies any blood thinners denies any history of hypertension. - Related Data Home Medications Medication Instructions Recorded Confirmed Insulin Aspart (For Pump) [NovoLOG 0.01 unit SQ-PUMP CONTINUOUS 04/14/17 (For Pump)] Albuterol Sulfate [Proair Hfa] 1 - 2 puff INHALATION Q6H PRN 03/24/18 10/11/23 Certolizumab Pegol [Cimzia] 400 mg SQ Q30D 08/20/18 10/11/23 Ezetimibe [Zetia] 10 mg PO HS 08/20/18 10/11/23 Montelukast [Singulair] 10 mg PO HS PRN 08/20/18 10/11/23 Nitroglycerin Sl Tabs [Nitrostat] 0.4 mg SUBLINGUAL Q5M PRN 08/20/18 10/11/23 Cholecalciferol (Vitamin D3) 2,000 unit PO DAILY 04/22/19 10/11/23 [Vitamin D3] Levothyroxine Sodium [Synthroid] 88 mcg PO MOTUWETHFRSA 07/29/19 10/11/23 Acetaminophen [Tylenol] 325 - 650 mg PO Q4-6H PRN 10/11/23 10/11/23 Ascorbic Acid [Vitamin C] 500 mg PO DAILY 10/11/23 10/11/23 Aspirin 81 mg PO QAM 10/11/23 10/11/23 Ibuprofen [Motrin Ib] 200 mg PO Q8H PRN 10/11/23 10/11/23 Isosorbide Mononitrate ER [Imdur] 60 mg PO QAM 10/11/23 10/11/23 Levothyroxine Sodium 44 mcg PO ALEX 10/11/23 10/11/23 Metoprolol Tartrate [Lopressor] 50 mg PO QAM 10/11/23 10/11/23 Omeprazole 20 mg PO QAM 10/11/23 10/11/23 Prasugrel [Effient] 10 mg PO QAM 10/11/23 10/11/23 Ranolazine [Ranexa] 500 mg PO QAM 10/11/23 10/11/23 dexAMETHasone [Decadron] 1 mg PO DIRECTED PRN 10/11/23 10/11/23 Previous Rx's Medication Instructions Recorded Atorvastatin [Lipitor] 80 mg PO HS #30 tab 03/28/18 Allergies Allergy/AdvReac Type Severity Reaction Status Date / Time amoxicillin Allergy Nausea & Verified 10/27/23 09:22 Vomiting infliximab [From Remicade] Allergy Unknown Verified 10/27/23 09:22 tetracycline Allergy Rash/Hives Verified 10/27/23 09:22 3-0 Silk Sutures Allergy Cause Uncoded 10/13/23 11:56 Infection Review of Systems ROS Statement: Those systems with pertinent positive or pertinent negative responses have been documented in the HPI. ROS Other: All systems not noted in ROS Statement are negative. Past Medical History Past Medical History: Asthma, Coronary Artery Disease (CAD), Cancer, Diabetes Mellitus, Eye Disorder, GERD/Reflux, Hearing Disorder / Deafness, Hyperlipidemia, Hypertension, Myocardial Infarction (ME), Rheumatoid Arthritis (RA) Additional Past Medical History / Comment(s): Allergy Induced Asthma. Hx Medullulary Thyroid Cancer. Diabetic Retinopathy. 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 Last Myocardial Infarction Date:: 04/23/19 History of Any Multi-Drug Resistant Organisms: None Reported Past Surgical History: Breast Surgery, Section, Coronary Bypass/CABG, Heart Catheterization With Stent, Orthopedic Surgery Additional Past Surgical History / Comment(s): Section X2, CABG - triple bypass [address] Boris Austin, benign breast biopsy, breast reduction, trigger finger release, thyroidectomy 2011, right knee surgery, vectrectomy left eye, bilateral cataract surgery, angioplasty 02/2020, has total of 4 stents, nasopharyngeal biopsy. Past Anesthesia/Blood Transfusion Reactions: Previous Problems w/ Anesthesia, Family History of Problems w/ Anesthesia, Motion Sickness, Postoperative Nausea & Vomiting (PONV) Additional Past Anesthesia/Blood Transfusion Reaction / Comment(s): Patient has trouble coming out of anesthesia, states has had trouble all but 3 times. States Jun 19 had [address] Wilkins, had trouble waking up an d slept for an extended period of time after. States always wakes up emotional/crying. States after her Dad's Bypass Surgery he did not wake up for 5-6 days after. Date of Last Stent Placement:: 07/24 Past Psychological History: Depression Smoking Status: Never smoker Past Alcohol Use History: None Reported Past Drug Use History: None Reported - Past Family History Father Family Medical History: Coronary Artery Disease (CAD), CVA/TIA Additional Family Medical History / Comment(s): Father at age 88 with history of CVA, cardiovascular disease, brain aneurysm, triple bypass at age 69. Mother Family Medical History: Cancer Additional Family Medical History / Comment(s): Breast cancer, at age 66. Brother(s) Family Medical History: Cancer Additional Family Medical History / Comment(s): Medullary thyroid cancer, , he was a [place] vet with exposure to agent orange and complications. Sister(s) Additional Family Medical History / Comment(s): She has one sister that is alive with history of diabetes mellitus type 2. Patient has 2 children with no major medical problems. General Exam Limitations: no limitations General appearance: alert, in no apparent distress Head exam: Present: atraumatic, normocephalic, normal inspection Eye exam: Present: normal appearance, PERRL, EOMI. Absent: scleral icterus, conjunctival injection, periorbital swelling ENT exam: Present: mucous membranes moist, other (Bilateral epistaxis). Absent: normal oropharynx (Posterior pharynx blood is noted.) Neck exam: Present: normal inspection. Absent: tenderness, meningismus, lymphadenopathy Respiratory exam: Present: normal lung sounds bilaterally. Absent: respiratory distress, wheezes, rales, rhonchi, stridor Cardiovascular Exam: Present: regular rate, normal rhythm, normal heart sounds. Absent: systolic murmur, diastolic murmur, rubs, gallop, clicks Course Vital Signs 10/27/23 10/27/23 10/27/23 09:19 10:18 13:45 Temperature 97.5 F L 98.2 F Pulse Rate 96 89 74 Respiratory 18 18 18 Rate Blood Pressure 177/74 124/79 132/71 O2 Sat by Pulse 98 98 100 Oximetry Medical Decision Making - Medical Decision Making Was pt. sent in by a medical professional or institution ([facility], [facility], urgent care, hospital, or long term...) When possible be specific @ -No Did you speak to anyone other than the patient for history (EMS, parent, family, police, friend...)? What history was obtained from this source @ -No Did you review nursing and triage notes (agree or disagree)? Why? @ -I reviewed and agree with nursing and triage notes Were old charts reviewed (outside hosp., previous admission, EMS record, old EKG, old radiological studies, urgent care reports/EKG's, long term records)? Report findings @ -[Reviewed prior surgical notes Differential Diagnosis (chest pain, altered mental status, abdominal pain women, abdominal pain men, vaginal bleeding, weakness, fever, dyspnea, syncope, heada mohit, dizziness, GI bleed, back pain, seizure, CVA, palpatations, mental health, musculoskeletal)? @ -Epistaxis, nasopharynx bleeding EKG interpreted by me (3pts min.). @ -[None X-rays interpreted by me (1pt min.). @ -[None done CT interpreted by me (1pt min.). @ -None done U/S interpreted by me (1pt. min.). @ -None done What testing was considered but not performed or refused? (CT, X-rays, U/S, l abs)? Why? @ -None What meds were considered but not given or refused? Why? @ -None Did you discuss the management of the patient with other professionals (professionals i.e. [facility], [facility], lab, RT, psych nurse, hospice social worker, portfolio strategist, teacher, correctional officer sergeant, rn case manager)? Give summary @ -Dr. Tavarez regarding patient's persistent bleeding that initially subsided but has reoccurred forming large clots in the posterior pharynx patient was evaluated by in the emergency department was taken to the OR. Was smoking cessation discussed for >3mins.? @ -No Was critical care preformed (if so, how long)? @ -No Were there social determinants of health that impacted care today? How? (Homelessness, low income, unemployed, alcoholism, drug addiction, transportation, low edu. Level, literacy, decrease access to med. care, group home, rehab)? @ -No Was there de-escalation of care discussed even if they declined (Discuss DNR or withdrawal of care, Hospice)? DNR status @ -No What co-morbidities impacted this encounter? (DM, HTN, Smoking, COPD, CAD, Cancer, CVA, ARF, Chemo, Hep., AIDS, mental health diagnosis, sleep apnea, morbid obesity)? @ -None Was patient admitted / discharged? Hospital course, mention meds given and route, prescriptions, significant lab abnormalities, going to OR and other pertinent info. @ -[Admitted to be taken to the OR for cauterization of nasopharynx bleeding. Undiagnosed new problem with uncertain prognosis? @ -No Drug Therapy requiring intensive monitoring for toxicity (Heparin, Nitro, Insulin, Cardizem)? @ -No Were any procedures done? @ -No Diagnosis/symptom? @ -[Nasopharynx hemorrhage Acute, or Chronic, or Acute on Chronic? @ -Acute Uncomplicated (without systemic symptoms) or Complicated (systemic symptoms)? @ -[Uncomplicated Side effects of treatment? @ -[No Exacerbation, Progression, or Severe Exacerbation? @ -No Poses a threat to life or bodily function? How? (Chest pain, [place], ME, pneumonia, PE, COPD, DKA, ARF, appy, cholecystitis, CVA, Diverticulitis, Homicidal, Suicidal, threat to staff... and all critical care pts) @ -No Disposition Clinical Impression: Bleeding from nasopharynx Disposition: ADMITTED IP TO THIS HOSP Condition: Stable Additional Instructions: Please return to the Emergency Department if symptoms worsen or any other concerns. Is patient prescribed a controlled substance at d/c from ED?: No Referrals: Maged Garcia DO [Primary Care Provider] - 1-2 days Time of Disposition: 12:34
[2023-10-27] MEDS ORDERED: NALOXONE 0.4 MG/ML 1 ML VIAL IV PRN (15:23)
[2023-10-27 15:44] LABS: Basophils # (A) 0.1 k/uL (0-0.2); Basophils % (A) 0 %; Eosinophils # (A) 0.2 k/uL (0-0.7); Eosinophils % (A) 1 %; HGB 10.9 gm/dL (11.4-16.0); Lymphocytes # (A) 1.1 k/uL (1.0-4.8); Lymphocytes % (A) 8 %; MCH 30.4 pg (25.0-35.0); MCHC 34.1 g/dL (31.0-37.0); MCV 88.9 fL (80.0-100.0); Mean Platelet Volume 6.9; Monocytes # (A) 0.6 k/uL (0-1.0); Monocytes % (A) 4 %; Neutrophils # (A) 11.5 k/uL (1.3-7.7); Neutrophils % (A) 85 %; Platelet Count 320 k/uL (150-450); RDW 12.6 % (11.5-15.5); WBC 13.6 k/uL (3.8-10.6)
[2023-10-27 15:58] LABS: Glucose,Whole Blood 321 mg/dL (70-110)
[2023-10-27 15:58] LABS: African American GFR (CKD) >90 (>60 ml/min/1.73 sqM); Anion Gap 7 mmol/L; Blood Urea Nitrogen 37 mg/dL (7-17); Calcium 8.6 mg/dL (8.4-10.2); Carbon Dioxide 21 mmol/L (22-30); Chloride 106 mmol/L (98-107); Glucose 298 mg/dL (74-99); Non-African American GFR(CKD) >90 (>60 ml/min/1.73 sqM); Potassium 4.9 mmol/L (3.5-5.1); Sodium 134 mmol/L (137-145)
[2023-10-27] MEDS: LACTATED RINGERS 1,000 ML IV ONE (16:01)
[2023-10-27] MEDS: METOCLOPRAMIDE 5 MG/ML 2 ML VIAL ONE (16:09)
[2023-10-27] MEDS: ONDANSETRON 4 MG/2 ML VIAL ONE (16:09)
[2023-10-27] MEDS: FAMOTIDINE 20 MG/2 ML VIAL IVP ONE (16:10)
[2023-10-27] MEDS ORDERED: fentaNYL (PF) 50 MCG/ML 2 ML AMP ONE (16:13)
[2023-10-27] MEDS ORDERED: SUCCINYLCHOLINE CHLORIDE 200 MG/10 ML VIAL IV ONE (16:13)
[2023-10-27] MEDS ORDERED: MIDAZOLAM 2 MG/2 ML VIAL ONE (16:13)
[2023-10-27] MEDS ORDERED: PHENYLEPHRINE-0.9% NACL SYG 1,000 MCG/10 ML SYRINGE ONE (16:13)
[2023-10-27] MEDS ORDERED: PROPOFOL 10 MG/ML 20 ML VIAL IV ONE (16:13)
[2023-10-27] MEDS ORDERED: LIDOCAINE 1% INJ 10MG/ML (20 ML MDV) ONE (16:13)
--- NOTE | 2023-10-27 17:29 | P.OP ---
Date of Procedure: 10/27/23 Preoperative Diagnosis: Postoperative nasopharyngeal hemorrhage Postoperative Diagnosis: Same Procedure(s) Performed: Nasopharyngeal exam under anesthesia with control of hemorrhage Anesthesia: RACHELE Surgeon: Tavon Phan Estimated Blood Loss (ml): 20 Pathology: none sent Condition: stable Disposition: PACU Indications for Procedure: Is a 63-year-old white female who underwent nasopharyngeal lesion excision 2 weeks ago. She was doing well until early this morning when she started having bleeding from the nose and mouth. This has been intermittent since then. Operative Findings: Large clot filling the nasopharynx as well as nasal cavities bilaterally. Diffuse brisk bleeding of the nasopharyngeal posterior wall at the surgical site Description of Procedure: The patient was brought Her suite and placed in supine position. The patient underwent induction of general anesthesia with oral endotracheal intubation without difficulty. The patient was prepped and draped in the usual aseptic fashion. The McIvor mouth gag was placed. The clot was activated from the nasopharynx and red Rawls catheters placed in the right nasal cavity and pulled through the oropharynx for soft palate retraction. The nasopharynx had brisk arterial bleeding from the posterior wall which was controlled with suction cautery. No abnormal masses otherwise or lesions were noted. Tisseel glue was then placed over the site of cautery. The patient was evaluated and observed for approximately 15 minutes and had no further bleeding. The patient was suctioned in oral gastric fashion and the McIvor mouth gag and catheter were removed. The patient was allowed to emerge from general anesthesia having tolerated procedure well was extubated in the operating suite and transferred to stop recovery area in satisfactory condition.
[2023-10-27 17:40] LABS: Glucose,Whole Blood 313 mg/dL (70-110)
[2023-10-27 17:51] VITALS: TEMP 97.4
[2023-10-27] MEDS ORDERED: INSULIN ASPART (NovoLOG) 100 UNIT/ML VIAL SQ ONE (17:52)
[2023-10-27] MEDS: INSULIN ASPART (NovoLOG) 100 UNIT/ML VIAL SQ ONE (18:02)
[2023-10-27 18:10] LABS: HCT 32.1 % (34.0-46.0); HGB 10.8 gm/dL (11.4-16.0); MCH 30.5 pg (25.0-35.0); MCHC 33.8 g/dL (31.0-37.0); MCV 90.3 fL (80.0-100.0); Mean Platelet Volume 6.9; Platelet Count 343 k/uL (150-450); RBC 3.55 m/uL (3.80-5.40); RDW 12.6 % (11.5-15.5); WBC 16.6 k/uL (3.8-10.6)
[2023-10-27 18:25] LABS: Glucose,Whole Blood 285 mg/dL (70-110)
[2023-10-27] MEDS: IV FLUID CONTINUATION 100 ML IV ONE (18:26)
[2023-10-27 18:47] VITALS: BP 140/54; PULSE 87; RESP 20
[2023-10-27] MEDS: ONDANSETRON ODT 4 MG TAB PO ONE (18:55)
--- NOTE | 2023-10-28 01:55 | HP ---
HISTORY AND PHYSICAL CHIEF COMPLAINT: Nasal/throat bleeding. HISTORY: This is a 63-year-old white female, patient of Dr. Beasley, who on 10/13/2023, underwent excision of a nasopharyngeal mass, which was benign on pathology. She had been doing well, but last week was seen in the office with upper respiratory tract infection and was placed on antibiotics. She did improve from those symptoms, but has had interval night last night. She had nausea and vomited. She was fine at that point, but this morning started having bleeding from the nose bilaterally as well as from the mouth. She came to the ER for evaluation after improved her symptoms, but since then, she has had intermittent bleeding with clots in the oropharynx and when she develops the clots, then she will cough and gag and start bleeding again. This has been intermittently persistent all day. She has been stable hemodynamically with vital signs stable. PAST MEDICAL HISTORY: Positive for reflux, rheumatoid arthritis, history of thyroid cancer, CHF, [place], hyperlipidemia. PAST SURGICAL HISTORY: Total thyroidectomy, bypass surgery, surgery on nose and finger, sections, cardiac stent, breast reduction, biopsy of the nasopharynx in June of last year, as well as recently as above. ALLERGIES: To amoxicillin, Remicade, tetracycline. Amoxicillin causes nausea, but no rash. MEDICATIONS: At home, 1. Albuterol as needed. 2. Baby aspirin. 3. Atorvastatin. 4. Finishing cefuroxime currently. 5. Cimzia. 6. Effient. 7. . 8. Isosorbide. 9. Metoprolol. 10.NovoLog. 11.Omeprazole. 12.ProAir as needed. 13.Ranolazine. 14.Synthroid. PHYSICAL EXAMINATION: VITAL SIGNS: Stable. GENERAL: The patient is alert, awake, and oriented, in no acute distress in her hospital bed. HEENT: Head, normocephalic and atraumatic. Ears bilaterally clear. Canals are clear. Tympanic membranes unremarkable and mobile. Nose shows bilateral cotton in anterior nares with some fresh blood staining. No active bleeding. Oropharynx and oral cavity shows a clot in the oropharynx. Otherwise, no active bleeding. NECK: Supple without adenopathy or tenderness. CHEST: Clear to auscultate bilaterally. HEART: Regular rate without murmur or gallop appreciated. EXTREMITIES: No gross deformities. NEUROLOGIC: Grossly intact. ASSESSMENT: Postoperative nasopharyngeal hemorrhage. PLAN: Recommended nasopharyngeal exam under anesthesia with control of hemorrhage. Presumably, the patient has a nonhealing area in the nasopharynx with secondary bleeding, which would be typically amenable to the suction cautery control. I reviewed the indication, alternatives, risks, potential benefits of procedure with risks including, but not inclusive of the risk of general anesthesia, bleeding, infection, continued or recurrent bleeding, need for further procedures in the future, depending on healing and further issues with bleeding. The patient understands the risks and agrees to proceed. I have discussed this with the operating room unit and should be able to proceed soon with this. MMODL / IJN: [id number] /
--- NOTE | 2023-11-16 09:15 | P.DS ---
Providers Date of admission: 10/27/23 15:36 Attending physician: Tavon Phan Primary care physician: Maged [facility] Course: Patient had history of nasopharynx biopsy 2 weeks prior to acute onset of bleeding which required intraoperative control hemorrhage with cauterization which she tolerated well and this controlled the bleeding Assessment: Post nasopharynx biopsy bleeding Procedures: See above Patient Condition at Discharge: Good Plan - Discharge Summary New Discharge Prescriptions: No Action Insulin Aspart (For Pump) [NovoLOG (For Pump)] 0.01 unit SQ-PUMP CONTINUOUS Albuterol Sulfate [Proair Hfa] 1 - 2 puff INHALATION RT-Q6H PRN PRN Reason: Shortness Of Breath Atorvastatin [Lipitor] 80 mg PO HS #30 tab Nitroglycerin Sl Tabs [Nitrostat] 0.4 mg SL Q5M PRN PRN Reason: Chest Pain Montelukast [Singulair] 10 mg PO HS PRN PRN Reason: Allergy Symptoms Ezetimibe [Zetia] 10 mg PO HS Certolizumab Pegol [Cimzia] 400 mg SQ Q30D Levothyroxine Sodium [Synthroid] 88 mcg PO MOTUWETHFRSA Levothyroxine Sodium 44 mcg PO ALEX Ranolazine [Ranexa] 500 mg PO DAILY dexAMETHasone [Decadron] 1 mg PO DIRECTED PRN PRN Reason: Rheumatoid Arthritis Flare Up Omeprazole 20 mg PO DAILY Isosorbide Mononitrate ER [Imdur] 30 mg PO DAILY@1200 #30 tab Ferrous Sulfate [Slow Release Iron] 142 mg PO DAILY #30 tab Aspirin 81 mg PO DAILY Prasugrel [Effient] 10 mg PO DAILY Metoprolol Succinate (ER) [Toprol XL] 50 mg PO DAILY Cholecalciferol [Vitamin D3 (25 Mcg = 1000 Iu)] 50 mcg PO DAILY tab Discharge Medication List Insulin Aspart (For Pump) [NovoLOG (For Pump)] 0.01 unit SQ-PUMP CONTINUOUS 04/14/17 [History] Albuterol Sulfate [Proair Hfa] 1 - 2 puff INHALATION RT-Q6H PRN 03/24/18 [History] Atorvastatin [Lipitor] 80 mg PO HS #30 tab 03/28/18 [Rx] Certolizumab Pegol [Cimzia] 400 mg SQ Q30D 08/20/18 [History] Ezetimibe [Zetia] 10 mg PO HS 08/20/18 [History] Montelukast [Singulair] 10 mg PO HS PRN 08/20/18 [History] Nitroglycerin Sl Tabs [Nitrostat] 0.4 mg SL Q5M PRN 08/20/18 [History] Levothyroxine Sodium [Synthroid] 88 mcg PO MOTUWETHFRSA 07/29/19 [History] Aspirin 81 mg PO DAILY 10/11/23 [History] Levothyroxine Sodium 44 mcg PO ALEX 10/11/23 [History] Omeprazole 20 mg PO DAILY 10/11/23 [History] Prasugrel [Effient] 10 mg PO DAILY 10/11/23 [History] Ranolazine [Ranexa] 500 mg PO DAILY 10/11/23 [History] dexAMETHasone [Decadron] 1 mg PO DIRECTED PRN 10/11/23 [History] Metoprolol Succinate (ER) [Toprol XL] 50 mg PO DAILY 10/29/23 [History] Cholecalciferol [Vitamin D3 (25 Mcg = 1000 Iu)] 50 mcg PO DAILY tab 10/31/23 [Rx] Ferrous Sulfate [Slow Release Iron] 142 mg PO DAILY #30 tab 10/31/23 [Rx] Isosorbide Mononitrate ER [Imdur] 30 mg PO DAILY@1200 #30 tab 10/31/23 [Rx] Follow up Appointment(s)/Referral(s): Maged Garcia DO [Primary Care Provider] - 1-2 days Patient Instructions/Handouts: *Surgery [facility] - (Anesthesia) Discharge Instructions Outpatient Surgery Activity/Diet/Wound Care/Special Instructions: Please return to the Emergency Department if symptoms worsen or any other concerns. Admit to outpatient surgery Vitals per routine Discharge when meets criteria Follow-up as scheduled with Dr. Robles Tylenol 1000 mg by mouth every 4 hours when necessary pain No nose blowing Soft diet 7 days Finish current antibiotic-on cefuroxime Call if questions or concerns regarding any abnormal bleeding, other questions or concerns Discharge Disposition: HOME SELF-CARE
== END 2023-10-27 18:59 | disposition home or self-care (01) ==
LOC: EC 09:15 → 6NMEDSUR 15:36
PROVIDERS: ADMIT Otolaryngology; ATTEND Otolaryngology
DX: K91.841 Postprocedural hemorrhage of a digestive system organ or structure following other procedure (principal); R04.1 Hemorrhage from throat; I25.10 Atherosclerotic heart disease of native coronary artery without angina pectoris; I10 Essential (primary) hypertension; E78.5 Hyperlipidemia, unspecified; E89.0 Postprocedural hypothyroidism; E11.319 Type 2 diabetes mellitus with unspecified diabetic retinopathy without macular edema; M06.9 Rheumatoid arthritis, unspecified; J45.998 Other asthma; Z96.41 Presence of insulin pump (external) (internal); Z79.4 Long term (current) use of insulin; Z79.82 Long term (current) use of aspirin; Z79.02 Long term (current) use of antithrombotics/antiplatelets; Z79.890 Hormone replacement therapy; Z79.899 Other long term (current) drug therapy; Z88.0 Allergy status to penicillin; Z88.1 Allergy status to other antibiotic agents; Z88.8 Allergy status to other drugs, medicaments and biological substances; Z91.048 Other nonmedicinal substance allergy status; Z98.890 Other specified postprocedural states; Z95.5 Presence of coronary angioplasty implant and graft; Z85.850 Personal history of malignant neoplasm of thyroid; Z95.1 Presence of aortocoronary bypass graft
CPT/HCPCS: 42972; 99284; 36415; 80048; 85025; 85027; J2250; J0330; J2765; J2405; J2001; J3010; J3490; J2704; J2371

== ENCOUNTER 2023-10-28 22:59 | Inpatient (IN) | payer BC ==
[2023-10-28] MEDS ORDERED: MORPHINE SULFATE 4 MG/ML SYRINGE IV PRN (23:08)
--- NOTE | 2023-10-28 23:13 | ED ---
Chest Pain HPI - General Chief Complaint: Chest Pain Stated Complaint: Cardiac arrest Time Seen by Provider: 10/28/23 23:05 Source: patient, EMS, RN notes reviewed, old records reviewed Mode of arrival: EMS Limitations: no limitations - History of Present Illness Initial Comments: This is a 63-year-old female to the ER for evaluation of severe chest pain. Patient stating that she is currently having a heart attack. Patient has history of heart disease history of prior stents and presents today feeling that she is having recurrent heart attack MD Complaint: chest pain -: days(s) Onset: during rest, during exertion Pain Location: substernal, left chest Pain Radiation: none, LUE, abdomen Severity: severe Severity scale (1-10): 10 Quality: tightness, heaviness Consistency: constant Improves With: nothing Worsens With: nothing Anginal Symptoms: other Other Symptoms: palpitations Treatments Prior to Arrival: none - Related Data Home Medications Medication Instructions Recorded Confirmed Insulin Aspart (For Pump) [NovoLOG 0.01 unit SQ-PUMP CONTINUOUS 04/14/17 10/29/23 (For Pump)] Albuterol Sulfate [Proair Hfa] 1 - 2 puff INHALATION RT-Q6H PRN 03/24/18 10/29/23 Certolizumab Pegol [Cimzia] 400 mg SQ Q30D 08/20/18 10/29/23 Ezetimibe [Zetia] 10 mg PO HS 08/20/18 10/29/23 Montelukast [Singulair] 10 mg PO HS PRN 08/20/18 10/29/23 Nitroglycerin Sl Tabs [Nitrostat] 0.4 mg SL Q5M PRN 08/20/18 10/29/23 Levothyroxine Sodium [Synthroid] 88 mcg PO MOTUWETHFRSA 07/29/19 10/29/23 Aspirin 81 mg PO DAILY 10/11/23 10/29/23 Levothyroxine Sodium 44 mcg PO ALEX 10/11/23 10/29/23 Omeprazole 20 mg PO DAILY 10/11/23 10/29/23 Prasugrel [Effient] 10 mg PO DAILY 10/11/23 10/29/23 Ranolazine [Ranexa] 500 mg PO DAILY 10/11/23 10/29/23 dexAMETHasone [Decadron] 1 mg PO DIRECTED PRN 10/11/23 10/29/23 Metoprolol Succinate (ER) [Toprol 50 mg PO DAILY 10/29/23 10/29/23 XL] Previous Rx's Medication Instructions Recorded Atorvastatin [Lipitor] 80 mg PO HS #30 tab 03/28/18 Cholecalciferol [Vitamin D3 (25 50 mcg PO DAILY tab 10/31/23 Mcg = 1000 Iu)] Ferrous Sulfate [Slow Release Iron] 142 mg PO DAILY #30 tab 10/31/23 Isosorbide Mononitrate ER [Imdur] 30 mg PO DAILY@1200 #30 tab 10/31/23 Allergies Allergy/AdvReac Type Severity Reaction Status Date / Time amoxicillin Allergy Nausea & Verified 10/29/23 16:17 Vomiting infliximab [From Remicade] Allergy Unknown Verified 10/29/23 16:17 tetracycline Allergy Rash/Hives Verified 10/29/23 16:17 3-0 Silk Sutures Allergy Cause Uncoded 10/29/23 16:17 Infection Review of Systems ROS Statement: Those systems with pertinent positive or pertinent negative responses have been documented in the HPI. ROS Other: All systems not noted in ROS Statement are negative. EKG Findings - EKG Comments: EKG Findings:: EKG is sinus tachycardia 107 NM 201 QRS 107 QTc 412 Past Medical History Past Medical History: Asthma, Coronary Artery Disease (CAD), Cancer, Diabetes Mellitus, Eye Disorder, GERD/Reflux, Hearing Disorder / Deafness, Hyperlipidemia, Hypertension, Myocardial Infarction ([place]), Rheumatoid Arthritis (RA) Additional Past Medical History / Comment(s): Allergy Induced Asthma. Hx Medullulary Thyroid Cancer. Diabetic Retinopathy. Some difficulty hearing, "ears plugged." Hx [place] X2 - 03/24/18 and 04/23/19. Last Myocardial Infarction Date:: 04/23/19 History of Any Multi-Drug Resistant Organisms: None Reported Past Surgical History: Breast Surgery, Section, Coronary Bypass/CABG, Heart Catheterization With Stent, Orthopedic Surgery Additional Past Surgical History / Comment(s): Section X2, CABG - triple bypass [address] Boris Austin, benign breast biopsy, breast reduction, trigger finger release, thyroidectomy 2011, right knee surgery, vectrectomy left eye, bilateral cataract surgery, angioplasty 02/2020, has total of 4 stents, nasopharyngeal biopsy. Past Anesthesia/Blood Transfusion Reactions: Previous Problems w/ Anesthesia, F amily History of Problems w/ Anesthesia, Motion Sickness, Postoperative Nausea & Vomiting (PONV) Additional Past Anesthesia/Blood Transfusion Reaction / Comment(s): Patient has trouble coming out of anesthesia, states has had trouble all but 3 times. States Jun 19 had [address] Wilkins, had trouble waking up and slept for an extended period of time after. States always wakes up emotional/crying. States after her Dad's Bypass Surgery he did not wake up for 5-6 days after. Date of Last Stent Placement:: 07/24 Past Psychological History: Depression Smoking Status: Never smoker Past Alcohol Use History: None Reported Past Drug Use History: None Reported - Past Family History Father Family Medical History: Coronary Artery Disease (CAD), CVA/TIA Additional Family Medical History / Comment(s): Father at age 88 with history of CVA, cardiovascular disease, brain aneurysm, triple bypass at age 69. Mother Family Medical History: Cancer Additional Family Medical History / Comment(s): Breast cancer, at age 66. Brother(s) Family Medical History: Cancer Additional Family Medical History / Comment(s): Medullary thyroid cancer, , he was a [place] vet with exposure to agent orange and complications. Sister(s) Additional Family Medical History / Comment(s): She has one sister that is alive with history of diabetes mellitus type 2. Patient has 2 children with no major medical problems. General Exam Limitations: no limitations General appearance: alert, in no apparent distress, anxious, in distress Head exam: Present: atraumatic, normocephalic, normal inspection Eye exam: Present: normal appearance, PERRL, EOMI. Absent: scleral icterus, conjunctival injection, periorbital swelling ENT exam: Present: normal exam, mucous membranes moist Neck exam: Present: normal inspection. Absent: tenderness, meningismus, lymphadenopathy Respiratory exam: Present: normal lung sounds bilaterally. Absent: respiratory distress, wheezes, rales, rhonchi, stridor Cardiovascular Exam: Present: regular rate, normal rhythm, normal heart sounds. Absent: systolic murmur, diastolic murmur, rubs, gallop, clicks GI/Abdominal exam: Present: soft, normal bowel sounds. Absent: distended, tenderness, guarding, rebound, rigid Extremities exam: Present: normal inspection, full ROM, normal capillary refill. Absent: tenderness, pedal edema, joint swelling, calf tenderness Back exam: Present: normal inspection Neurological exam: Present: alert, oriented X3, CN II-XII intact Psychiatric exam: Present: normal affect, normal mood Skin exam: Present: warm, dry, intact, normal color. Absent: rash Course Vital Signs 10/28/23 10/28/23 10/28/23 23:02 23:05 23:15 Pulse Rate 106 H 82 76 Respiratory 16 16 16 Rate Blood Pressure 137/80 137/0 150/76 O2 Sat by Pulse 100 98 99 Oximetry 10/28/23 10/28/23 23:25 23:30 Pulse Rate 80 94 Respiratory 16 14 Rate Blood Pressure 138/67 138/67 O2 Sat by Pulse 99 100 Oximetry - Reevaluation(s) Reevaluation #1: Medical records reviewed STEMI paged on patient arrival Reevaluation #2: Patient still with chest pain here in the ER Reevaluation #3: Patient informed of results and questions answered Studies Chest x-ray is negative for acute disease Reevaluation #4: Was pt. sent in by a medical professional or institution (, PA, RD MECHANICAL ENGINEER, urgent care, hospital, or senior care...) When possible be specific @ -no Did you speak to anyone other than the patient for history (EMS, parent, family, police, friend...)? What history was obtained from this source @ -no Did you review nursing and triage notes (agree or disagree)? Why? @ -agree Are old charts reviewed (outside hosp., previous admission, EMS record, old EKG, old radiological studies, urgent care reports/EKG's, senior care records)? Report findings @ -yes Differential Diagnosis (chest pain, altered mental status, abdominal pain women, abdominal pain men, vaginal bleeding, weakness, fever, dyspnea, syncope, headache, dizziness, GI bleed, back pain, seizure, CVA, palpatations, mental health, musculoskeletal)? @ -prior EKG interpreted by me (3pts min.). @ -yes X-rays interpreted by me (1pt min.). @ -yes negative for acute disease CT interpreted by me (1pt min.). @ -no U/S interpreted by me (1pt. min.). @ -no What testing was considered but not performed or refused? (CT, X-rays, U/S, labs)? Why? @ -none What meds were considered but not given or refused? Why? @ -none Did you discuss the management of the patient with other professionals (professionals i.e. , PA, RD MECHANICAL ENGINEER, lab, RT, psych nurse, high school social studies teacher, stuntman, teacher, first aid officer, pillowcase cutter)? Give summary @ -no Was smoking cessation discussed for >3mins.? @ -no Was critical care preformed (if so, how long)? @ -yes31 Were there social determinants of health that impacted care today? How? (Homelessness, low income, unemployed, alcoholism, drug addiction, transportation, low edu. Level, literacy, decrease access to med. care, usp, rehab)? @ -none Was there de-escalation of care discussed even if they declined (Discuss DNR or withdrawal of care, Hospice)? DNR status @ -no What co-morbidities impacted this encounter? (DM, HTN, Smoking, COPD, CAD, Cancer, CVA, ARF, Chemo, Hep., AIDS, mental health diagnosis, sleep apnea, morbid obesity)? @ -none Was patient admitted / discharged? Hospital course, mention meds given and route, prescriptions, significant lab abnormalities, going to OR and other pertinent info. @ - 63 female to the ER for evaluation of severe chest pain feels like prior history of heart disease and heart attack. Patient stating that she is having a heart attack here in the ER, patient goes to the [facility] with cardiology for further evaluation and management Discharge Undiagnosed new problem with uncertain prognosis? @ -no Drug Therapy requiring intensive monitoring for toxicity (Heparin, Nitro, Insulin, Cardizem)? @ -no Were any procedures done? @ -no Diagnosis/symptom? @ -STEMI, acute coronary syndrome Acute, or Chronic, or Acute on Chronic? @ -Acute Uncomplicated (without systemic symptoms) or Complicated (systemic symptoms)? @ -Complicated Side effects of treatment? @ -no Exacerbation, Progression, or Severe Exacerbation? @ -exacerbation Poses a threat to life or bodily function? How? (Chest pain, [place], [place], pneumonia, PE, COPD, DKA, ARF, appy, cholecystitis, CVA, Diverticulitis, Homicidal, Suicidal, threat to staff... and all critical care pts) @ -yes with acute coronary disease Reevaluation #5: Differential Chest Pain: Stable Angina, Unstable Angina, STEMI, NSTEMI Aortic Dissection, Pneumothorax, Musculoskeletal, Esophageal Spasm GERD, Cholecystitis, Pancreatitis, Zoster, this is not meant to be an all-inclusive list. - Consultations Consultation #1: Spoke with cardiology to see patient in the emergency department Chest Pain MDM - MDM 63 female to the ER for evaluation of severe chest pain feels like prior history of heart disease and heart attack. Patient stating that she is having a heart attack here in the ER, patient goes to the [facility] with cardiology for further evaluation and management Critical Care Time Critical Care Time: Yes Total Critical Care Time: 31 Disposition Clinical Impression: Chest pain, ST elevation myocardial infarction (STEMI), ACS (acute coronary syndrome) Disposition: ADMITTED IP TO THIS HOSP Condition: Fair Is patient prescribed a controlled substance at d/c from ED?: No Time of Disposition: 23:10
[2023-10-28] MEDS: MORPHINE SULFATE 4 MG/ML SYRINGE IV STA (23:18)
[2023-10-28] MEDS: ASPIRIN 81 MG PO STA (23:19)
[2023-10-28] MEDS: HEPARIN SODIUM 1,000 UN/ML (10ML VL) IV ONE (23:20)
[2023-10-28] MEDS: METOPROLOL TARTRATE 5 MG/5 ML VIAL IVP STA (23:21)
[2023-10-28] MEDS: SODIUM CHLORIDE 0.9% 500 ML 500 ML IV STA (23:23)
[2023-10-28] MEDS: ONDANSETRON 4 MG/2 ML VIAL IVP STA (23:23)
[2023-10-28 23:24] LABS: Basophils % (A) 0 %; Eosinophils % (A) 0 %; HCT 24.5 % (34.0-46.0); Lymphocytes # (A) 1.5 k/uL (1.0-4.8); Lymphocytes % (A) 11 %; MCH 30.8 pg (25.0-35.0); MCHC 34.9 g/dL (31.0-37.0); MCV 88.2 fL (80.0-100.0); Monocytes # (A) 0.6 k/uL (0-1.0); Monocytes % (A) 4 %; Neutrophils # (A) 11.4 k/uL (1.3-7.7); Neutrophils % (A) 83 %; Platelet Count 336 k/uL (150-450); RBC 2.77 m/uL (3.80-5.40); RDW 12.9 % (11.5-15.5); WBC 13.7 k/uL (3.8-10.6)
[2023-10-28] MEDS: HEPARIN SOD,PORK IN 0.45% NACL 25,000 UNIT in 0.45% NACL 1 250ML.BAG IV SCH (23:26)
[2023-10-28] MEDS: NITROGLYCERIN SL TABS 0.4 MG TAB SUBLINGUAL STA (23:28)
[2023-10-28 23:34] LABS: ALT 19 U/L (4-34); AST 24 U/L (14-36); African American GFR (CKD) >90 (>60 ml/min/1.73 sqM); Albumin 3.5 g/dL (3.5-5.0); Alkaline Phosphatase 76 U/L (38-126); Anion Gap 6 mmol/L; Blood Urea Nitrogen 28 mg/dL (7-17); Carbon Dioxide 22 mmol/L (22-30); Chloride 108 mmol/L (98-107); Glucose 216 mg/dL (74-99); Lipase 49 U/L (23-300); Non-African American GFR(CKD) >90 (>60 ml/min/1.73 sqM); Sodium 136 mmol/L (137-145); Total Bilirubin 0.5 mg/dL (0.2-1.3)
[2023-10-28 23:36] LABS: HGB 8.5 gm/dL (11.4-16.0)
--- NOTE | 2023-10-28 23:40 | XR ---
EXAMINATION TYPE: XR chest 1V portable DATE OF EXAM: 10/28/2023 COMPARISON: Chest x-ray July 05, 2023 HISTORY: Chest pain. STEMI TECHNIQUE: Single frontal view of the chest is obtained. FINDINGS: Overlying sternal wires and mediastinal clips are redemonstrated. There is no suspicious n ew focal air space opacity, pleural effusion, or pneumothorax seen. The cardiac silhouette size is s table and within normal limits. Overlying coronary artery stent redemonstrated. The osseous structu res are intact. IMPRESSION: No acute process. No significant change from prior.
[2023-10-28 23:43] LABS: NT-Pro-B-Type Natriuretic Pept 910 pg/mL
[2023-10-28] MEDS ORDERED: HEPARIN SODIUM 1,000 UN/ML (10ML VL) ONE (23:44)
[2023-10-28 23:45] LABS: INR 0.9 (<1.2); Partial Thromboplastin Time 20.5 sec (22.0-30.0); Prothrombin Time 10.3 sec (10.0-12.5)
[2023-10-28] MEDS: IV FLUID CONTINUATION 500 ML IV ONE (23:45)
[2023-10-28] MEDS: MIDAZOLAM 2 MG/2 ML VIAL IVP ONE (23:48)
[2023-10-28] MEDS: LIDOCAINE 1% INJ 10MG/ML (20 ML MDV) SQ ONE (23:50)
[2023-10-28] MEDS: SODIUM CHLORIDE 0.9% 500 ML 500 ML IV ONE (23:57)
[2023-10-29] MEDS: HEPARIN SODIUM 1,000 UN/ML (10ML VL) IV ONE (00:09)
[2023-10-29] MEDS: NITROGLYCERIN 1000MCG/10ML SYRINGE INTRACORON ONE (00:21)
[2023-10-29] MEDS: IOPAMIDOL-370 100ML BTL INJ ONE (00:39)
[2023-10-29] MEDS ORDERED: NITROGLYCERIN SL TABS 0.4 MG TAB SUBLINGUAL PRN (00:56)
[2023-10-29] MEDS ORDERED: dexAMETHasone 2 MG TAB PO PRN (00:56)
[2023-10-29] MEDS ORDERED: MONTELUKAST 10 MG TAB PO PRN (00:56)
[2023-10-29 01:05] LABS: Glucose,Whole Blood 218 mg/dL (70-110)
--- NOTE | 2023-10-29 01:10 | P.PCN ---
Date of Procedure: 10/29/23 Operative Findings: CARDIAC CATHETERIZATION AND PERCUTANEOUS CORONARY INTERVENTION PERFORMING PHYSICIAN: Edwin Conley MD, [facility] PROCEDURE PERFORMED: 1. Selective right and left coronary angiogram 2. KENNY to LAD angiogram and SVG to diagonal angiogram and SVG to OM angiogram 3. Successful stenting of mid left circumflex using 2.5 x 15 mm Xience RADHA with an excellent angiographic results 4. Successful angioplasty of the left main and proximal left circumflex with an excellent angiographic results 5. Adjunctive use of intravascular imaging and lithotripsy balloon 6. Left heart catheterization 7. Selective right common femoral artery angiogram INDICATION: This is a 63-year-old female patient with coronary artery disease status post coronary artery that was grafting with KENNY to LAD and SVG to OM and subsequently stenting of the ostial/proximal dominant left circumflex coronary artery as well as diabetes and hypertension and dyslipidemia. She presented to the hospital with a chest discomfort and EKG concerning for ST elevation myocardial infarction. In the light of that a heart catheterization was advised. COMPLICATION: None APPROACH: Right common femoral artery LEVEL OF SEDATION: Moderate with the sedation time off 52 minutes PROCEDURE DESCRIPTION: After obtaining an informed consent, the patient was brought to cardiac laboratory director. Local anesthesia was performed using lidocaine subcutaneously. The right common femoral artery was cannulated using micropuncture technique and the micropuncture wire passed easily then placed a 6-Micronesian sheath over the wire. Subsequently the sheath was flushed and secured. Selective right and left coronary angiogram using a 6-Micronesian JR4 and JL 3.5 catheters. Following that we did left heart catheterization. Then I did intervene on the left circumflex coronary artery disease please note that KENNY into LAD angiogram and SVG to left circumflex angiogram and SVG to diagonal angiogram performed using the JR4 catheter. The procedure was completed there was no complication. SELECTIVE CORONARY ANGIOGRAM: The right coronary artery: Medium caliber vessel with critical disease in the proximal portion. Left main: Short left main with severe disease noted. The left circumflex: Large caliber vessel and a dominant vessel with a critical diffuse disease related to critical in-stent restenosis involving the proximal and mid left circumflex coronary artery. The left anterior descending artery: Is occluded in the mid-portion. HEMODYNAMICS: The LVEDP was 20 mmHg was no significant gradient across aortic valve PCI OF THE LCX: Anticoagulation was initiated using heparin with continuous ACT monitoring. Subsequently I did engage the left main using JL 3.5 guiding catheter which was 6-Micronesian guiding catheter. I did wire the left circumflex and advanced a wire to the PDA of the left circumflex using a run-through wire. After that I did balloon angioplasty to restore the flow in the left circumflex using 2.5 mm see my compliant balloon. Subsequently I balloon that using 3 mm noncompliant balloon. After that I did intravascular ultrasound which showed a diameter of the left circumflex in the midportion about 2.5 mm and in the proximal portion around 3.5 mm up to about 4 mm. At that point I decided to do balloon angioplasty using 3.5 mm noncompliant balloon. I did that on the left circumflex in the mid and proximal portion all the way to the left main coronary artery. An angiogram was performed and showed an area distal to the stented segment appeared to be hazy and could be related to dissection and also severe residual in-stent restenosis involving the left circumflex in the mid and proximal portion. I did lithotripsy balloon using 4 mm balloon of the whole stented segment in the left circumflex in the mid and proximal portion. Angiogram showed good angiographic results was TERRELL-3 flow in the left circumflex coronary artery except for the area distal to the old stent in the mid to distal portion. I decided to cover that with a stent. I deployed 2.5 x 15 mm stent which was positioned under fluoroscopy guidance with about 2 mm overlap and deployed under 12 bryn. Then area of overlap was postdilated using the stent balloon. Final angiogram showed good angiographic results was TERRELL-3 flow. The patient was completely asymptomatic. The EKG changes improved significantly as well as. CONCLUSION: #1 Severe triple-vessel coronary artery disease #2 Patent KENNY to LAD. Occluded SVG to diagonal #3 Patent SVG to OM #4 Critical in-stent restenosis involving the left main and proximal and mid left circumflex coronary artery going to PDA. I performed successful PCI as described above #5 Elevated left-sided filling pressure POSTPROCEDURE MANAGEMENT: 1. Dual antiplatelet therapy using aspirin and Effient for 12 month 2. Aggressive cholesterol control 3. Follow-up with the patient
[2023-10-29] MEDS: SODIUM CHLORIDE 0.9% 1,000 ML IV STA (01:18)
[2023-10-29] MEDS ORDERED: INSULIN PUMP BASAL RATES 1 EACH MISC MISCELLANE PRN (03:00)
[2023-10-29] MEDS ORDERED: INSPUCOR MISCELLANE PRN (03:00)
[2023-10-29] MEDS ORDERED: INSULIN ASPART (NovoLOG) 100 UNIT/ML VIAL SQ PRN (03:00)
[2023-10-29] MEDS: Insulin Aspart (For Pump) 100 UNIT/ML VIAL SQ-PUMP SCH (03:08)
[2023-10-29] MEDS: ATROPINE SULFATE 0.1 MG/ML 10ML SYRINGE ONE (03:31)
[2023-10-29] MEDS: ALPRAZolam 0.5 MG TAB PO STA (03:33)
[2023-10-29] MEDS ORDERED: ALPRAZolam 0.5 MG TAB PO PRN (04:16)
--- NOTE | 2023-10-29 04:27 | P.HPIM ---
History of Present Illness H&P Date: 10/29/23 Chief Complaint: Chest pain 64-year-old female with coronary artery disease status post CABG diabetes mellitus Patient was not feeling well today, had some chest discomfort however main trigger was felt that her heart rate is elevated she reports that in the past 3 heart attacks she had usually heart rate will go up and she recognizes that that is a sign of having a heart attack for which notified her family and EMS was notified and brought into the hospital. She reports that over the past 2 weeks she had a surgery to remove nasal polyps then followed by upper respiratory infection for which she was on antibiotics this whole week and then 2 days ago as she was blowing her nose she started bleeding from bilateral nostrils for which she came into the hospital as she could not stop it she had a surgical intervention to cauterize her nose to stop the bleeding she believes that she lost a lot of blood and since then she has been feeling very tired lightheaded and short of breath which she believes has precipitated today's attack. Upon further evaluation EKG showed ST elevation [facility] Law [facility] was activated and patient was urgently taken to the Clinical Law Professor she had a successful PCI and stenting of the mid left circumflex patient tolerated procedure well and currently feels better she is slightly anxious and feels at times but otherwise denies any chest pain trouble breathing nausea vomiting denies any abdominal pain denies any other sources of bleeding. Of note her hemoglobin a year ago was 13.5 and on October 27 was 10.9 and today was 8.5 she believes that she had very significant bleeding epistaxis the other day. 1 polyp that was removed from her nose was benign and she also had some skin lesions removed of his chest which was positive for skin cancer and she is waiting for removal in 2 weeks. review of systems Pertinent positives as noted in HPI. All other systems were reviewed and are negative on exam Constitutional: No acute distress, conversant, pleasant Eyes: Anicteric sclerae, moist conjunctiva, Pupils equal round reactive to light ENMT: NC/AT Oropharynx clear, no erythema, or exudates Neck: Supple, no masses, or JVD No carotid bruits No thyromegaly Lungs: Clear to auscultation Clear to percussion Normal respiratory effort, no accessory muscle use Cardiovascular: Heart regular in rate and rhythm, No murmurs, gallops, or rubs No peripheral edema Abdominal: Soft Nontender, no guarding, rebound or rigidity Abdomen moving with respiration Normoactive bowel sounds Extremities: No digital cyanosis No clubbing Pedal pulses intact and symmetrical Radial pulses intact and symmetrical No calf tenderness Psychiatric: Alert and oriented to person, place and time Appropriate affect fair judgement Neuro Muscles Strength 5/5 in all 4 extremities Sensation to light touch grossly present throughout Cranial nerves II-XII grossly intact Past Medical History Past Medical History: Asthma, Coronary Artery Disease (CAD), Cancer, Diabetes Mellitus, Eye Disorder, GERD/Reflux, Hearing Disorder / Deafness, Hy perlipidemia, Hypertension, Myocardial Infarction (MS), Rheumatoid Arthritis (RA) Additional Past Medical History / Comment(s): Allergy Induced Asthma. Hx Medullulary Thyroid Cancer. Diabetic Retinopathy. Some difficulty hearing, "ears plugged." Hx MS X2 - 03/24/18 and 04/23/19. Last Myocardial Infarction Date:: 04/23/19 History of Any Multi-Drug Resistant Organisms: None Reported Past Surgical History: Breast Surgery, Section, Coronary Bypass/CABG, Heart Catheterization With Stent, Orthopedic Surgery Additional Past Surgical History / Comment(s): Section X2, CABG - triple bypass [address] Boris [place], benign breast biopsy, breast reduction, trigger finger release, thyroidectomy 2011, right knee surgery, vectrectomy left eye, bilateral cataract surgery, angioplasty 02/2020, has total of 4 stents, nasopharyngeal biopsy. Past Anesthesia/Blood Transfusion Reactions: Previous Problems w/ Anesthesia, Family History of Problems w/ Anesthesia, Motion Sickness, Postoperative Nausea & Vomiting (PONV) Additional Past Anesthesia/Blood Transfusion Reaction / Comment(s): Patient has trouble coming out of anesthesia, states has had trouble all but 3 times. States Jun 19 had [address] Wilkins, had trouble waking up and slept for an extended period of time after. States always wakes up emotional/crying. States after her Dad's Bypass Surgery he did not wake up for 5-6 days after. Date of Last Stent Placement:: 07/24 Past Psychological History: Depression Smoking Status: Never smoker Past Alcohol Use History: None Reported Past Drug Use History: None Reported - Past Family History Father Family Medical History: Coronary Artery Disease (CAD), CVA/TIA Additional Family Medical History / Comment(s): Father at age 88 with history of CVA, cardiovascular disease, brain aneurysm, triple bypass at age 69. Mother Family Medical History: Cancer Additional Family Medical History / Comment(s): Breast cancer, at age 66. Brother(s) Family Medical History: Cancer Additional Family Medical History / Comment(s): Medullary thyroid cancer, , he was a [place] vet with exposure to agent orange and complications. Sister(s) Additional Family Medical History / Comment(s): She has one sister that is alive with history of diabetes mellitus type 2. Patient has 2 children with no major medical problems. Medications and Allergies Home Medications Medication Instructions Recorded Confirmed Type Insulin Aspart (For Pump) [NovoLOG 0.01 unit SQ-PUMP CONTINUOUS 04/14/17 10/29/23 History (For Pump)] Albuterol Sulfate [Proair Hfa] 1 - 2 puff INHALATION Q6H PRN 03/24/18 10/29/23 History Atorvastatin [Lipitor] 80 mg PO HS #30 tab 03/28/18 10/29/23 Rx Certolizumab Pegol [Cimzia] 400 mg SQ Q30D 08/20/18 10/29/23 History Ezetimibe [Zetia] 10 mg PO HS 08/20/18 10/29/23 History Montelukast [Singulair] 10 mg PO HS PRN 08/20/18 10/29/23 History Nitroglycerin Sl Tabs [Nitrostat] 0.4 mg SUBLINGUAL Q5M PRN 08/20/18 10/29/23 History Cholecalciferol (Vitamin D3) 2,000 unit PO DAILY 04/22/19 10/27/23 History [Vitamin D3] Levothyroxine Sodium [Synthroid] 88 mcg PO MOTUWETHFRSA 07/29/19 10/29/23 History Acetaminophen [Tylenol] 325 - 650 mg PO Q4-6H PRN 10/11/23 10/27/23 History Ascorbic Acid [Vitamin C] 500 mg PO DAILY 10/11/23 10/27/23 History Aspirin 81 mg PO QAM 10/11/23 10/29/23 History Ibuprofen [Motrin Ib] 200 mg PO Q8H PRN 10/11/23 10/29/23 History Isosorbide Mononitrate ER [Imdur] 60 mg PO QAM 10/11/23 10/29/23 History Levothyroxine Sodium 44 mcg PO ALEX 10/11/23 10/29/23 History Metoprolol Tartrate [Lopressor] 50 mg PO QAM 10/11/23 10/29/23 History Omeprazole 20 mg PO QAM 10/11/23 10/29/23 History Prasugrel [Effient] 10 mg PO QAM 10/11/23 10/29/23 History Ranolazine [Ranexa] 500 mg PO QAM 10/11/23 10/29/23 History dexAMETHasone [Decadron] 1 mg PO DIRECTED PRN 10/11/23 10/29/23 History Allergies Allergy/AdvReac Type Severity Reaction Status Date / Time amoxicillin Allergy Nausea & Verified 10/27/23 16:20 Vomiting infliximab [From Remicade] Allergy Unknown Verified 10/27/23 16:20 tetracycline Allergy Rash/Hives Verified 10/27/23 16:20 3-0 Silk Sutures Allergy Cause Uncoded 10/27/23 16:20 Infection Physical Exam Vitals: Vital Signs Temp Pulse Resp BP Pulse Ox 10/29/23 02:00 87 20 112/66 99 10/29/23 01:50 84 14 98 10/29/23 01:40 90 16 112/66 99 10/29/23 01:32 97.8 F 87 14 112/66 99 10/28/23 23:40 140/72 10/28/23 23:30 94 14 138/67 100 10/28/23 23:25 80 16 138/67 99 10/28/23 23:15 76 16 150/76 99 10/28/23 23:05 82 16 137/0 98 10/28/23 23:02 106 H 16 137/80 100 Intake and Output 10/28/23 10/28/23 10/29/23 14:59 22:59 06:59 Intake Total 400 Output Total 0 Balance 400 Intake: IV 400 Sodium Chloride 0.9% 1, 200 000 ml @ 100 mls/hr IV . Q10H STA Rx#:[id number] Output: Urine 0 Other: Voiding Method External Catheter Weight 63.503 kg ABP, PAP, CO, CI - Last 8 Hours Arterial Blood Pressure 112/41 Arterial Blood Pressure 109/40 Arterial Blood Pressure 132/45 Arterial Blood Pressure 125/43 Results CBC & Chem 7: 02/23/24 23:13 10/28/23 23:13 Labs: Abnormal Lab Results - Last 24 Hours (Table) 10/28/23 10/28/23 10/28/23 Range/Units 23:13 23:13 23:13 WBC 13.7 H (3.8-10.6) k/uL RBC 2.77 L (3.80-5.40) m/uL Hgb 8.5 L D (11.4-16.0) gm/dL Hct 24.5 L (34.0-46.0) % Neutrophils # 11.4 H (1.3-7.7) k/uL APTT 20.5 L (22.0-30.0) sec Sodium 136 L (137-145) mmol/L Chloride 108 H (98-107) mmol/L BUN 28 H (7-17) mg/dL Glucose 216 H (74-99) mg/dL POC Glucose (mg/dL) (70-110) mg/dL Total Protein 6.0 L (6.3-8.2) g/dL 10/29/23 Range/Units 01:04 WBC (3.8-10.6) k/uL RBC (3.80-5.40) m/uL Hgb (11.4-16.0) gm/dL Hct (34.0-46.0) % Neutrophils # (1.3-7.7) k/uL APTT (22.0-30.0) sec Sodium (137-145) mmol/L Chloride (98-107) mmol/L BUN (7-17) mg/dL Glucose (74-99) mg/dL POC Glucose (mg/dL) 218 H (70-110) mg/dL Total Protein (6.3-8.2) g/dL Assessment and Plan Assessment: 64-year-old female with coronary artery disease status post CABG coming in for palpitations and chest discomfort I discussed the case with ED doctor accepted the admission for STEMI with anticipated length of stay more than 2 midnights STEMI Patient rushed to the Clinical Law [facility] Status post successful PCI and stenting of the mid left circumflex Cardiology recommended maximal medical therapy and to continue with aspirin statin and Effient for 12 months Resume metoprolol 50 mg p.o. daily Continue with Imdur Zetia and Ranexa home medications EKG was suggestive of lateral ischemia Follow-up cardiology recommendations Gentle IV fluid hydration normal saline 100 cc/h Hypothyroidism continue with levothyroxine Diabetes mellitus Patient has an insulin pump Continue with insulin pump meal bolus and correction doses Acute blood loss anemia secondary to significant epistaxis Continue to monitor hemoglobin closely No active bleeding at this time Full code DVT prophylaxis heparin subcu 3 times daily Blood work showing unremarkable otherwise Sodium 136 potassium 5 BUN 28 creatinine 0.6 Troponin 0.012 negative Chest x-ray no acute cardiopulmonary process
[2023-10-29 05:01] LABS: Basophils % (A) 0 %; Eosinophils % (A) 0 %; HCT 20.3 % (34.0-46.0); Lymphocytes # (A) 1.5 k/uL (1.0-4.8); Lymphocytes % (A) 15 %; MCHC 34.6 g/dL (31.0-37.0); MCV 89.5 fL (80.0-100.0); Monocytes # (A) 0.6 k/uL (0-1.0); Monocytes % (A) 5 %; Neutrophils # (A) 8.3 k/uL (1.3-7.7); Neutrophils % (A) 78 %; Platelet Count 273 k/uL (150-450); RBC 2.27 m/uL (3.80-5.40); WBC 10.6 k/uL (3.8-10.6)
[2023-10-29 05:14] LABS: African American GFR (CKD) >90 (>60 ml/min/1.73 sqM); Anion Gap 4 mmol/L; Blood Urea Nitrogen 24 mg/dL (7-17); Carbon Dioxide 22 mmol/L (22-30); Chloride 109 mmol/L (98-107); Glucose 234 mg/dL (74-99); Non-African American GFR(CKD) >90 (>60 ml/min/1.73 sqM); Potassium 4.5 mmol/L (3.5-5.1); Sodium 135 mmol/L (137-145)
[2023-10-29] MEDS: PANTOPRAZOLE 40 MG TABLET PO SCH (06:31)
[2023-10-29] MEDS: LEVOTHYROXINE 88 MCG TAB PO SCH (06:31)
[2023-10-29] MEDS: NITROGLYCERIN SL TABS 0.4 MG TAB SUBLINGUAL PRN (07:24)
--- NOTE | 2023-10-29 07:25 | P.CRDCN ---
History of Present Illness History of present illness: This is Dr. Terrell dictating a consult on this patient The patient was interviewed and examined IMPRESSION / ASSESSMENT: Acute myocardial infarction, initially labeled as an ST elevation SD ST elevation in aVR with ST depression in the lateral precordial leads and in the high lateral leads However, previous EKG also shows ST elevation in aVR Anemia, hemoglobin 8.5, likely chronic PLAN: Urgent coronary angiography for acute coronary syndrome and appropriate coronary intervention Heparin antiplatelet therapy beta-blockers and statins HPI Patient came to the hospital complaining of chest discomfort since 10 PM She had been experiencing intermittent chest discomfort through the day She also had been complaining of intermittent discomfort the day before At 10 PM the pain became very severe and she came to the ER I saw her in the ER after 11 PM Her pain was slightly better She had ST elevations in aVR with ST depression in V3-V6 and in the lateral leads Chest x-ray was normal Past history of severe triple-vessel coronary artery disease with coronary bypass grafting History of left main equivalent disease based on previous coronary angiogram from [id number] Her previous EKGs also show ST elevation in aVR ROS: No fever chills or rigors, no cough, phlegm or expectoration, no nausea, vomiting or diarrhea, no hematuria, dysuria, no musculoskeletal complaints, no strokes or seizures, no skin lesions. EXAMINATION: Blood pressure 138/67 140/72 mmHg pulse rate in the 80s Heart sounds S1-S2 normal, soft, scratchy systolic sound This almost has the characteristic of a rub Breath sounds are reduced bilaterally Patient appears pale transected REVIEW OF LABS, ECG & MEDICAL DATA Home medications include atorvastatin aspirin Zetia Imdur metoprolol levothyroxine Ranexa Effient First troponin normal Sodium 136 potassium 5.0 BUN 28 White count 13,000 hemoglobin 8.5 Past Medical History Past Medical History: Asthma, Coronary Artery Disease (CAD), Cancer, Diabetes Mellitus, Eye Disorder, GERD/Reflux, Hearing Disorder / Deafness, Hyperlipidemia, Hypertension, Myocardial Infarction (SD), Rheumatoid Arthritis (RA) Additional Past Medical History / Comment(s): Allergy Induced Asthma. Hx Medullulary Thyroid Cancer. Diabetic Retinopathy. Some difficulty hearing, "ears plugged." Hx SD X2 - 03/24/18 and 04/23/19. Last Myocardial Infarction Date:: 04/23/19 History of Any Multi-Drug Resistant Organisms: None Reported Past Surgical History: Breast Surgery, Section, Coronary Bypass/CABG, Heart Catheterization With Stent, Orthopedic Surgery Additional Past Surgical History / Comment(s): Section X2, CABG - triple bypass [address] Boris Kingsley [place], benign breast biopsy, breast reduction, trigger finger release, thyroidectomy 2011, right knee surgery, vectrectomy left eye, bilateral cataract surgery, angioplasty 02/2020, has total of 4 stents, nasopharyngeal biopsy. Past Anesthesia/Blood Transfusion Reactions: Previous Problems w/ Anesthesia, Family History of Problems w/ Anesthesia, Motion Sickness, Postoperative Nausea & Vomiting (PONV) Additional Past Anesthesia/Blood Transfusion Reaction / Comment(s): Patient has trouble coming out of anesthesia, states has had trouble all but 3 times. States Jun 19 had [address] Wilkins, had trouble waking up and slept for an extended period of time after. States always wakes up emotional/crying. States after her Dad's Bypass Surgery he did not wake up for 5-6 days after. Date of Last Stent Placement:: 07/24 Past Psychological History: Depression Smoking Status: Never smoker Past Alcohol Use History: None Reported Past Drug Use History: None Reported - Past Family History Father Family Medical History: Coronary Artery Disease (CAD), CVA/TIA Additional Family Medical History / Comment(s): Father at age 88 with history of CVA, cardiovascular disease, brain aneurysm, triple bypass at age 69. Mother Family Medical History: Cancer Additional Family Medical History / Comment(s): Breast cancer, at age 66. Brother(s) Family Medical History: Cancer Additional Family Medical History / Comment(s): Medullary thyroid cancer, , he was a [place] vet with exposure to agent orange and complications. Sister(s) Additional Family Medical History / Comment(s): She has one sister that is alive with history of diabetes mellitus type 2. Patient has 2 children with no major medical problems. Medications and Allergies Home Medications Medication Instructions Recorded Confirmed Type Insulin Aspart (For Pump) [NovoLOG 0.01 unit SQ-PUMP CONTINUOUS 04/14/17 10/29/23 History (For Pump)] Albuterol Sulfate [Proair Hfa] 1 - 2 puff INHALATION Q6H PRN 03/24/18 10/29/23 History Atorvastatin [Lipitor] 80 mg PO HS #30 tab 03/28/18 10/29/23 Rx Certolizumab Pegol [Cimzia] 400 mg SQ Q30D 08/20/18 10/29/23 History Ezetimibe [Zetia] 10 mg PO HS 08/20/18 10/29/23 History Montelukast [Singulair] 10 mg PO HS PRN 08/20/18 10/29/23 History Nitroglycerin Sl Tabs [Nitrostat] 0.4 mg SUBLINGUAL Q5M PRN 08/20/18 10/29/23 History Cholecalciferol (Vitamin D3) 2,000 unit PO DAILY 04/22/19 10/27/23 History [Vitamin D3] Levothyroxine Sodium [Synthroid] 88 mcg PO MOTUWETHFRSA 07/29/19 10/29/23 History Acetaminophen [Tylenol] 325 - 650 mg PO Q4-6H PRN 10/11/23 10/27/23 History Ascorbic Acid [Vitamin C] 500 mg PO DAILY 10/11/23 10/27/23 History Aspirin 81 mg PO QAM 10/11/23 10/29/23 History Ibuprofen [Motrin Ib] 200 mg PO Q8H PRN 10/11/23 10/29/23 History Isosorbide Mononitrate ER [Imdur] 60 mg PO QAM 10/11/23 10/29/23 History Levothyroxine Sodium 44 mcg PO ALEX 10/11/23 10/29/23 History Metoprolol Tartrate [Lopressor] 50 mg PO QAM 10/11/23 10/29/23 History Omeprazole 20 mg PO QAM 10/11/23 10/29/23 History Prasugrel [Effient] 10 mg PO QAM 10/11/23 10/29/23 History Ranolazine [Ranexa] 500 mg PO QAM 10/11/23 10/29/23 History dexAMETHasone [Decadron] 1 mg PO DIRECTED PRN 10/11/23 10/29/23 History Allergies Allergy/AdvReac Type Severity Reaction Status Date / Time amoxicillin Allergy Nausea & Verified 10/27/23 16:20 Vomiting infliximab [From Remicade] Allergy Unknown Verified 10/27/23 16:20 tetracycline Allergy Rash/Hives Verified 10/27/23 16:20 3-0 Silk Sutures Allergy Cause Uncoded 10/27/23 16:20 Infection Physical Exam Vitals: Vital Signs Temp Pulse Resp BP Pulse Ox 10/29/23 07:00 82 11 L 113/60 98 10/29/23 06:30 74 14 99/50 99 10/29/23 06:00 75 11 L 104/51 99 10/29/23 05:30 73 12 98/45 97 10/29/23 05:00 59 L 15 100/45 98 10/29/23 04:30 61 15 98/49 96 10/29/23 04:00 98 F 74 14 123/65 98 10/29/23 03:30 87 14 111/55 97 10/29/23 03:00 84 15 130/70 99 10/29/23 02:30 89 12 112/66 98 10/29/23 02:00 87 20 112/66 99 10/29/23 01:50 84 14 98 10/29/23 01:40 90 16 112/66 99 10/29/23 01:32 97.8 F 87 14 112/66 99 10/28/23 23:40 140/72 10/28/23 23:30 94 14 138/67 100 10/28/23 23:25 80 16 138/67 99 10/28/23 23:15 76 16 150/76 99 10/28/23 23:05 82 16 137/0 98 10/28/23 23:02 106 H 16 137/80 100 Intake and Output 10/28/23 10/29/23 10/29/23 22:59 06:59 14:59 Intake Total 800 100 Output Total 0 Balance 800 100 Intake: IV 800 100 Sodium Chloride 0.9% 1, 600 100 000 ml @ 100 mls/hr IV . Q10H STA Rx#:[id number] Output: Urine 0 Other: Voiding Method External Catheter # Voids 1 Weight 74.7 kg ABP, PAP, CO, CI - Last 8 Hours Arterial Blood Pressure 112/41 Arterial Blood Pressure 109/40 Arterial Blood Pressure 132/45 Arterial Blood Pressure 125/43 Results 10/29/23 04:04 10/29/23 04:04 Cardiac Enzymes 10/28/23 10/28/23 10/29/23 Range/Units 23:13 23:13 04:04 AST 24 (14-36) U/L Troponin I <0.012 3.320 H* (0.000-0.034) ng/mL Coagulation 10/28/23 10/29/23 Range/Units 23:13 04:04 PT 10.3 (10.0-12.5) sec APTT 20.5 L 41.2 H (22.0-30.0) sec CBC 10/28/23 10/29/23 Range/Units 23:13 04:04 WBC 13.7 H 10.6 (3.8-10.6) k/uL RBC 2.77 L 2.27 L (3.80-5.40) m/uL Hgb 8.5 L D 7.0 L D (11.4-16.0) gm/dL Hct 24.5 L 20.3 L (34.0-46.0) % Plt Count 336 273 (150-450) k/uL Comprehensive Metabolic Panel 10/28/23 10/29/23 Range/Units 23:13 04:04 Sodium 136 L 135 L (137-145) mmol/L Potassium 5.0 4.5 (3.5-5.1) mmol/L Chloride 108 H 109 H (98-107) mmol/L Carbon Dioxide 22 22 (22-30) mmol/L BUN 28 H 24 H (7-17) mg/dL Creatinine 0.65 0.57 (0.52-1.04) mg/dL Glucose 216 H 234 H (74-99) mg/dL Calcium 9.0 8.0 L (8.4-10.2) mg/dL AST 24 (14-36) U/L ALT 19 (4-34) U/L Alkaline Phosphatase 76 (38-126) U/L Total Protein 6.0 L (6.3-8.2) g/dL Albumin 3.5 (3.5-5.0) g/dL Current Medications Generic Name Dose Route Start Last Admin Trade Name Freq PRN Reason Stop Dose Admin Alprazolam 0.5 mg 10/29/23 04:16 Alprazolam 0.5 Mg Tab PO TID PRN Anxiety Ascorbic Acid 500 mg 10/29/23 09:00 Ascorbic Acid 500 Mg Tab PO DAILY PERRY Aspirin 81 mg 10/29/23 09:00 Aspirin 81 Mg PO QAM PERRY Atorvastatin Calcium 80 mg 10/29/23 21:00 Atorvastatin 80 Mg Tab PO HS PERRY Cholecalciferol 2,000 mcg 10/29/23 09:00 Cholecalciferol 25 Mcg (1000 Iu) Tablet PO DAILY PERRY Dexamethasone 1 mg 10/29/23 00:56 Dexamethasone 2 Mg Tab PO DAILY PRN Rheumatoid Arthritis Flare Up Ezetimibe 10 mg 10/29/23 21:00 Ezetimibe 10 Mg Tab PO HS PERRY Heparin Sodium (Porcine) 5,000 unit 10/30/23 08:00 Heparin Sodium,Porcine 5,000 Unit/Ml 1 Ml Vial SQ Q8HR [facility] Sodium Chloride 1,000 mls @ 100 mls/hr 10/28/23 23:08 10/29/23 01:18 Saline 0.9% IV 10/29/23 09:07 100 mls/hr .Q10H STA Administration Insulin Aspart 0.01 unit 10/29/23 01:00 10/29/23 03:08 Insulin Aspart (For Pump) 100 Unit/Ml Vial SQ-PUMP Not Given CONTINUOUS [facility] Insulin Aspart 0 unit 10/29/23 03:00 Insulin Aspart (Novolog) 100 Unit/Ml Vial SQ DAILY PRN Insulin Pump Replacement Isosorbide Mononitrate 60 mg 10/29/23 09:00 Isosorbide Mononitrate Er 60 Mg Tab.Er.24h PO QAM [facility] Levothyroxine Sodium 44 mcg 10/30/23 06:30 Levothyroxine 88 Mcg Tab PO Alex@[id number] [facility] Levothyroxine Sodium 88 mcg 10/29/23 06:30 10/29/23 06:31 Levothyroxine 88 Mcg Tab PO 88 mcg [id number] PERRY Administration Metoprolol Tartrate 50 mg 10/29/23 09:00 Metoprolol Tartrate 50 Mg Tab PO QAM [facility] Miscellaneous Information 1 each 10/29/23 03:00 Insulin Pump Basal Rates 1 Each Misc MISCELLANE Q6HR PRN Blood Sugar - High Protocol Miscellaneous Information 0 unit 10/29/23 07:30 Insulin Pump Meal Bolus 1 Unit Misc MISCELLANE ACHS [facility] Protocol Miscellaneous Information 0 unit 10/29/23 03:00 Insulin Pump Correction Bolus 1 Unit Misc MISCELLANE ACHS PRN Blood Sugar - High Protocol Montelukast Sodium 10 mg 10/29/23 00:56 Montelukast 10 Mg Tab PO HS PRN Allergy Symptoms Morphine Sulfate 4 mg 10/28/23 23:08 Morphine Sulfate 4 Mg/Ml Syringe IV Q4HR PRN Chest Pain Nitroglycerin 0.4 mg 10/28/23 23:08 Nitroglycerin Sl Tabs 0.4 Mg Tab SUBLINGUAL Q5M PRN Chest Pain Non-Formulary Medication 400 mg 11/05/23 09:00 Certolizumab Pegol [Cimzia] SQ Q30D PERRY Pantoprazole Sodium 40 mg 10/29/23 07:30 10/29/23 06:31 Pantoprazole 40 Mg Tablet PO 40 mg [id number] PERRY Administration Prasugrel 10 mg 10/29/23 09:00 Prasugrel 10 Mg Tab PO QAM PERRY Ranolazine 500 mg 10/29/23 09:00 Ranolazine 500 Mg Tab.Er.12h PO QAM PERRY Intake and Output 10/28/23 10/29/23 10/29/23 22:59 06:59 14:59 Intake Total 800 100 Output Total 0 Balance 800 100 Intake: IV 800 100 Sodium Chloride 0.9% 1, 600 100 000 ml @ 100 mls/hr IV . Q10H STA Rx#:[id number] Output: Urine 0 Other: Voiding Method External Catheter # Voids 1 Weight 74.7 kg 10/29/23 04:04 10/29/23 04:04
--- NOTE | 2023-10-29 07:32 | P.PN ---
Subjective Progress Note Date: 10/29/23 Patient is a 63-year-old female with history of coronary artery disease status post triple bypass surgery in 2010, diabetes mellitus type 2 insulin requiring, GERD, hypertension, dyslipidemia, and multiple other comorbid conditions who presented to the emergency department with complaints of chest discomfort. On arrival to the emergency department she was noted to be tachycardic with a heart rate of 106. EKG was performed which showed ST depression in leads I, II, V4, V5, and V6 with some ST segment elevation in aVR and V1. She was taken emergently to [facility] by Dr. Vides where she was found to have critical in- stent restenosis of the left main and proximal left circumflex artery and underwent successful PCI. Initial labs were remarkable for hemoglobin 8.5) of note she had undergone a procedure to stop nosebleeding on 10/27/2023 after having had a nasal polyp removed), sodium 136, BUN 28, glucose 216. Patient was subsequently admitted to the ICU. She was given aspirin and Effient. Patient seen and examined at bedside. Recurrent left arm pain this morning which subsided with nitro. She denies any shortness of breath or lightheadedness. She is feeling very tired. She denies any nasal bleeding or postnasal drip at this time. We discussed that her hemoglobin is down to 7 and I recommend 1 unit of blood. She is in agreement. Vital signs reviewed General: Nontoxic, no distress, appears at stated age Cardiovascular: S1S2 reg, no murmur Lungs: CTA bilateral, no rhonchi, no rales, no accessory muscle use, no blood in the urine X Abdominal: Soft, nontender to palpation, no guarding Ext: No gross muscle atrophy, no edema b/l lower extremities, no contractures Neuro: CN II-XI grossly intact, no focal neuro deficits Psych: Alert, oriented, appropriate affect Assessment/Plan: STEMI due to in-stent restenosis status post PCI to the left main Hypertension Dyslipidemia -Aspirin 81 mg daily, Effient 10 mg twice daily, Lipitor 80 mg at night, Lopressor 50 mg daily -Patient is on Zetia 10 mg at night, Imdur 60 mg daily -Ranexa 500 mg every morning -Continue with normal saline until she completes her 10 hours of fluid Anemia, Acute blood loss -Anticipate multifactorial as patient was recently seen by Dr. Tavarez for control of nasal bleed after polypectomy. -Follow CBC closely. Will transfuse 1 unit of packed red blood cells given that her hemoglobin is 7 this morning. Patient will need to remain on dual antiplatelet therapy and if she has any recurrent nasal bleeding will reconsult ENT. -Check iron studies. Diabetes mellitus type 2 -Patient to resume insulin pump -Follow blood sugars 4 times daily -Check A1c Hypothyroidism -Continue home Synthroid dosing at 44 mcg on Tuesday and 88 mcg all other days of the week Chronic: Rheumatoid arthritis Asthma without exacerbation GERD Imaging: none new Data Review: Labs reviewed from today include CBC and basic metabolic profile which are remarkable for hemoglobin of 7 sodium 135, glucose 234. Troponin elevated at 3.3. DVT prophylaxis: Heparin SC Anticipated discharge date: Pending Clinical Course Anticipated discharge place: Pending Clinical Course This dictation was prepared using [employer] voice recognition software. Though every attempt is made to correct errors during dictation some may still exist. Objective - Vital Signs Vital signs: Vital Signs Temp 98 F 10/29/23 04:00 Pulse 82 10/29/23 07:00 Resp 11 L 10/29/23 07:00 BP 113/60 10/29/23 07:00 Pulse Ox 98 10/29/23 07:00 FiO2 Intake & Output 10/28/23 10/29/23 10/29/23 18:59 06:59 18:59 Intake Total 800 100 Output Total 0 Balance 800 100 Weight 74.7 kg Intake: IV 800 100 Sodium Chloride 0.9% 1, 600 100 000 ml @ 100 mls/hr IV . Q10H STA Rx#:[id number] Output: Urine 0 Other: Voiding Method External Catheter # Voids 1 ABP, PAP, CO, CI - Last Documented Arterial Blood Pressure 112/41 - Labs CBC & Chem 7: 10/29/23 04:04 10/29/23 04:04 Labs: Abnormal Lab Results - Last 24 Hours (Table) 10/28/23 10/28/23 10/28/23 Range/Units 23:13 23:13 23:13 WBC 13.7 H (3.8-10.6) k/uL RBC 2.77 L (3.80-5.40) m/uL Hgb 8.5 L D (11.4-16.0) gm/dL Hct 24.5 L (34.0-46.0) % Neutrophils # 11.4 H (1.3-7.7) k/uL APTT 20.5 L (22.0-30.0) sec Sodium 136 L (137-145) mmol/L Chloride 108 H (98-107) mmol/L BUN 28 H (7-17) mg/dL Glucose 216 H (74-99) mg/dL POC Glucose (mg/dL) (70-110) mg/dL Calcium (8.4-10.2) mg/dL Troponin I (0.000-0.034) ng/mL Total Protein 6.0 L (6.3-8.2) g/dL 10/29/23 10/29/23 10/29/23 Range/Units 01:04 04:04 04:04 WBC (3.8-10.6) k/uL RBC (3.80-5.40) m/uL Hgb (11.4-16.0) gm/dL Hct (34.0-46.0) % Neutrophils # (1.3-7.7) k/uL APTT 41.2 H (22.0-30.0) sec Sodium (137-145) mmol/L Chloride (98-107) mmol/L BUN (7-17) mg/dL Glucose (74-99) mg/dL POC Glucose (mg/dL) 218 H (70-110) mg/dL Calcium (8.4-10.2) mg/dL Troponin I 3.320 H* (0.000-0.034) ng/mL Total Protein (6.3-8.2) g/dL 10/29/23 10/29/23 Range/Units 04:04 04:04 WBC (3.8-10.6) k/uL RBC 2.27 L (3.80-5.40) m/uL Hgb 7.0 L D (11.4-16.0) gm/dL Hct 20.3 L (34.0-46.0) % Neutrophils # 8.3 H (1.3-7.7) k/uL APTT (22.0-30.0) sec Sodium 135 L (137-145) mmol/L Chloride 109 H (98-107) mmol/L BUN 24 H (7-17) mg/dL Glucose 234 H (74-99) mg/dL POC Glucose (mg/dL) (70-110) mg/dL Calcium 8.0 L (8.4-10.2) mg/dL Troponin I (0.000-0.034) ng/mL Total Protein (6.3-8.2) g/dL
[2023-10-29] MEDS: ASPIRIN 81 MG PO SCH (08:39)
[2023-10-29] MEDS: RANOLAZINE 500 MG TAB.ER.12H PO SCH (08:39)
[2023-10-29] MEDS: CHOLECALCIFEROL 25 MCG (1000 IU) TABLET PO SCH (08:39)
[2023-10-29] MEDS: ASCORBIC ACID 500 MG TAB PO SCH (08:39)
[2023-10-29 08:43] LABS: Glucose,Whole Blood 303 mg/dL (70-110)
[2023-10-29 08:45] LABS: Glucose,Whole Blood 299 mg/dL (70-110)
[2023-10-29] MEDS: INSULIN PUMP MEAL BOLUS 1 UNIT MISC MISCELLANE SCH (08:48)
[2023-10-29] MEDS ORDERED: METOPROLOL TARTRATE 25 MG TAB PO SCH (09:00)
[2023-10-29] MEDS ORDERED: ASPIRIN 325 MG TAB PO SCH (09:00)
[2023-10-29] MEDS: PRASUGREL 10 MG TAB PO SCH (10:24)
[2023-10-29] MEDS: METOPROLOL TARTRATE 25 MG TAB PO SCH (10:24)
[2023-10-29 10:28] LABS: LDL Cholesterol,Calculated 15.5 mg/dL (0.0-131.0)
--- NOTE | 2023-10-29 12:46 | P.PN ---
Subjective Progress Note Date: 10/29/23 This is Brant Timmons NP, I'm dictating on behalf of Dr. Terrell's H&P and A&P. Patient was interviewed and examined. Patient is a pleasant 63-year-old female who presented to hospital with a non-ST elevated myocardial infarction. Patient reports that she is feeling much better today. She was having some left arm pain and was given a nitro which did help. Patient overall reports she is 99% better today. She is status post cardiac catheterization with successful stenting of mid left circumflex, successful angioplasty of left main and proximal left circumflex. Vital signs are stable today. GENERAL: Well-appearing, well-nourished and in no acute distress. NECK: Supple without JVD or thyromegaly. LUNGS: Breath sounds clear to auscultation bilaterally. Respiration equal and unlabored. No wheezes, rales or rhonchi. HEART: Regular rate and rhythm without murmurs, rubs or gallops. S1 and S2 heard. EXTREMITIES: Normal range of motion, no edema. No clubbing or cyanosis. Peripheral pulses intact and strong. VITALS: Temp 97.9, pulse 65, respirations 18, blood pressure 91/40, O2 saturation 100% on 2 L TELEMETRY: Normal sinus rhythm LABS: White count 10.6, hemoglobin 7, platelets 273, sodium 135, potassium 4.5, BUN 24, creatinine 0.57, calcium 8, hemoglobin A1c 8.2, triglycerides 249, cholesterol 95, LDL 15.5, HDL 29.7 IMPRESSION: 1. Acute myocardial infarction, non-ST elevated 2. ST elevation in aVR with ST depression in the lateral precordial leads and in high lateral leads, however previous EKG shows ST elevation in aVR 3. Anemia, likely will need blood transfusion PLAN: Change metoprolol to 25 mg twice daily. Decrease Imdur to 30 mg daily. Patient has experienced failure of medical treatment, despite maximum dose statin and Zetia. Patient needs Repatha, in addition to atorvastatin and Zetia to help reduce incidence and continued risk of [place]. Further recommendations based on patient's clinical course. Objective - Vital Signs Vital signs: Vital Signs Temp 97.9 F 10/29/23 11:04 Pulse 73 10/29/23 12:30 Resp 18 10/29/23 12:30 BP 98/42 10/29/23 12:30 Pulse Ox 99 10/29/23 12:30 FiO2 Intake & Output 10/28/23 10/29/23 10/29/23 18:59 06:59 18:59 Intake Total 800 540 Output Total 0 Balance 800 540 Weight 74.7 kg Intake: IV 800 300 Sodium Chloride 0.9% 1, 600 300 000 ml @ 100 mls/hr IV . Q10H STA Rx#:[id number] Oral 240 Blood Product 0 Unit 0 Output: Urine 0 Other: Voiding Method External Catheter External Catheter # Voids 1 ABP, PAP, CO, CI - Last Documented Arterial Blood Pressure 112/41 - Labs CBC & Chem 7: 10/29/23 04:04 10/29/23 04:04 Labs: Abnormal Lab Results - Last 24 Hours (Table) 10/28/23 10/28/23 10/28/23 Range/Units 23:13 23:13 23:13 WBC 13.7 H (3.8-10.6) k/uL RBC 2.77 L (3.80-5.40) m/uL Hgb 8.5 L D (11.4-16.0) gm/dL Hct 24.5 L (34.0-46.0) % Neutrophils # 11.4 H (1.3-7.7) k/uL APTT 20.5 L (22.0-30.0) sec Sodium 136 L (137-145) mmol/L Chloride 108 H (98-107) mmol/L BUN 28 H (7-17) mg/dL Glucose 216 H (74-99) mg/dL POC Glucose (mg/dL) (70-110) mg/dL Hemoglobin A1c (<=6.0) % Calcium (8.4-10.2) mg/dL Troponin I (0.000-0.034) ng/mL Total Protein 6.0 L (6.3-8.2) g/dL Triglycerides (0.00-149.00) mg/dL VLDL Cholesterol, Calc (5.00-40.00) mg/dL HDL Cholesterol (40.00-60.00) mg/dL Crossmatch 10/29/23 10/29/23 10/29/23 Range/Units 01:04 04:04 04:04 WBC (3.8-10.6) k/uL RBC (3.80-5.40) m/uL Hgb (11.4-16.0) gm/dL Hct (34.0-46.0) % Neutrophils # (1.3-7.7) k/uL APTT 41.2 H (22.0-30.0) sec Sodium (137-145) mmol/L Chloride (98-107) mmol/L BUN (7-17) mg/dL Glucose (74-99) mg/dL POC Glucose (mg/dL) 218 H (70-110) mg/dL Hemoglobin A1c (<=6.0) % Calcium (8.4-10.2) mg/dL Troponin I 3.320 H* (0.000-0.034) ng/mL Total Protein (6.3-8.2) g/dL Triglycerides (0.00-149.00) mg/dL VLDL Cholesterol, Calc (5.00-40.00) mg/dL HDL Cholesterol (40.00-60.00) mg/dL Crossmatch 10/29/23 10/29/23 10/29/23 Range/Units 04:04 04:04 04:04 WBC (3.8-10.6) k/uL RBC 2.27 L (3.80-5.40) m/uL Hgb 7.0 L D (11.4-16.0) gm/dL Hct 20.3 L (34.0-46.0) % Neutrophils # 8.3 H (1.3-7.7) k/uL APTT (22.0-30.0) sec Sodium 135 L (137-145) mmol/L Chloride 109 H (98-107) mmol/L BUN 24 H (7-17) mg/dL Glucose 234 H (74-99) mg/dL POC Glucose (mg/dL) (70-110) mg/dL Hemoglobin A1c 8.2 H (<=6.0) % Calcium 8.0 L (8.4-10.2) mg/dL Troponin I (0.000-0.034) ng/mL Total Protein (6.3-8.2) g/dL Triglycerides 249.00 H (0.00-149.00) mg/dL VLDL Cholesterol, Calc 49.80 H (5.00-40.00) mg/dL HDL Cholesterol 29.70 L (40.00-60.00) mg/dL Crossmatch 10/29/23 10/29/23 10/29/23 Range/Units 08:39 08:41 08:43 WBC (3.8-10.6) k/uL RBC (3.80-5.40) m/uL Hgb (11.4-16.0) gm/dL Hct (34.0-46.0) % Neutrophils # (1.3-7.7) k/uL APTT (22.0-30.0) sec Sodium (137-145) mmol/L Chloride (98-107) mmol/L BUN (7-17) mg/dL Glucose (74-99) mg/dL POC Glucose (mg/dL) 303 H 299 H (70-110) mg/dL Hemoglobin A1c (<=6.0) % Calcium (8.4-10.2) mg/dL Troponin I (0.000-0.034) ng/mL Total Protein (6.3-8.2) g/dL Triglycerides (0.00-149.00) mg/dL VLDL Cholesterol, Calc (5.00-40.00) mg/dL HDL Cholesterol (40.00-60.00) mg/dL Crossmatch See Detail
[2023-10-29 14:17] LABS: Glucose,Whole Blood 159 mg/dL (70-110)
[2023-10-29 14:20] LABS: % Iron Saturation 21.74 (12.00-45.00); Ferritin 51.4 ng/mL (10.0-291.0)
[2023-10-29 15:39] LABS: Basophils % (A) 0 %; Eosinophils # (A) 0.3 k/uL (0-0.7); Eosinophils % (A) 3 %; HCT 29.5 % (34.0-46.0); Lymphocytes # (A) 1.9 k/uL (1.0-4.8); Lymphocytes % (A) 19 %; MCHC 34.2 g/dL (31.0-37.0); MCV 90.7 fL (80.0-100.0); Mean Platelet Volume 6.9; Monocytes # (A) 0.6 k/uL (0-1.0); Monocytes % (A) 6 %; Neutrophils % (A) 70 %; Platelet Count 253 k/uL (150-450); RBC 3.25 m/uL (3.80-5.40); RDW 13.2 % (11.5-15.5); WBC 9.9 k/uL (3.8-10.6)
[2023-10-29 15:41] LABS: HGB 10.1 gm/dL (11.4-16.0)
[2023-10-29 17:22] LABS: Glucose,Whole Blood 184 mg/dL (70-110)
[2023-10-29] MEDS: bisacodyL 10 MG SUPP RECTAL STA (17:29)
[2023-10-29] MEDS: ATORVASTATIN 80 MG TAB PO SCH (19:32)
[2023-10-29] MEDS: EZETIMIBE 10 MG TAB PO SCH (19:32)
[2023-10-29 19:38] LABS: Glucose,Whole Blood 199 mg/dL (70-110)
[2023-10-29 23:31] LABS: Glucose,Whole Blood 253 mg/dL (70-110)
[2023-10-30] MEDS ORDERED: DEXTROSE 50% SYRINGE 50 ML IVP PRN ×2 (02:54)
[2023-10-30 03:02] LABS: Glucose,Whole Blood 221 mg/dL (70-110)
[2023-10-30] MEDS: INSULIN ASPART (NovoLOG) 100 UNIT/ML VIAL SQ SCH (03:06)
[2023-10-30 04:41] LABS: HCT 26.8 % (34.0-46.0); HGB 9.2 gm/dL (11.4-16.0); MCH 30.8 pg (25.0-35.0); MCHC 34.3 g/dL (31.0-37.0); MCV 89.9 fL (80.0-100.0); Mean Platelet Volume 7.1; Platelet Count 244 k/uL (150-450); RBC 2.98 m/uL (3.80-5.40); RDW 13.6 % (11.5-15.5); WBC 10.8 k/uL (3.8-10.6)
[2023-10-30 04:49] LABS: African American GFR (CKD) >90 (>60 ml/min/1.73 sqM); Anion Gap 7 mmol/L; Blood Urea Nitrogen 16 mg/dL (7-17); Calcium 8.1 mg/dL (8.4-10.2); Carbon Dioxide 22 mmol/L (22-30); Chloride 105 mmol/L (98-107); Glucose 247 mg/dL (74-99); Non-African American GFR(CKD) >90 (>60 ml/min/1.73 sqM); Sodium 134 mmol/L (137-145)
[2023-10-30 06:43] LABS: Glucose,Whole Blood 374 mg/dL (70-110)
[2023-10-30] MEDS: POTASSIUM CHLORIDE ER 20 MEQ TAB.ER PO SCH (06:46)
[2023-10-30] MEDS: LEVOTHYROXINE 88 MCG TAB PO SCH (06:47)
--- NOTE | 2023-10-30 11:35 | P.PN ---
Subjective Progress Note Date: 10/30/23 Patient is a 63-year-old female with history of coronary artery disease status post triple bypass surgery in 2010, diabetes mellitus type 2 insulin requiring, GERD, hypertension, dyslipidemia, and multiple other comorbid conditions who presented to the emergency department with complaints of chest discomfort. On arrival to the emergency department she was noted to be tachycardic with a heart rate of 106. EKG was performed which showed ST depression in leads I, II, V4, V5, and V6 with some ST segment elevation in aVR and V1. She was taken emergently to [facility] by Dr. Vides where she was found to have critical in- stent restenosis of the left main and proximal left circumflex artery and underwent successful PCI. Initial labs were remarkable for hemoglobin 8.5) of note she had undergone a procedure to stop nosebleeding on 10/27/2023 after having had a nasal polyp removed), sodium 136, BUN 28, glucose 216. Patient was subsequently admitted to the ICU. She was given aspirin and Effient. Patient seen and examined at bedside. She denies any additional chest pain, shortness of breath, or arm pain. No other complaints currently. She is asking for prognosis on her coronary artery disease and I have directed her to discuss this with her primary patient financial services manager out of [facility]. Vital signs reviewed General: Nontoxic, no distress, appears at stated age Cardiovascular: S1S2 reg, no murmur Lungs: CTA bilateral, no rhonchi, no rales, no accessory muscle use Abdominal: Soft, nontender to palpation, no guarding Ext: No gross muscle atrophy, no edema b/l lower extremities, no contractures Neuro: CN II-XI grossly intact, no focal neuro deficits Psych: Alert, oriented, appropriate affect Assessment/Plan: STEMI due to in-stent restenosis status post PCI to the left main Hypertension Dyslipidemia -Aspirin 81 mg daily, Effient 10 mg twice daily, Lipitor 80 mg at night, Lopressor 25 mg BID -Patient is on Zetia 10 mg at night, Imdur 60 mg daily -Ranexa 500 mg every morning - echo pending -Cardiology note reviewed from 10/29: Change metoprolol to 25 mg twice daily, decrease Imdur to 30 mg daily. Consider transitioning to Repatha to reduce the continued risk of myocardial infarction. Anemia, Acute blood loss -Anticipate multifactorial as patient was recently seen by Dr. Tavarez for control of nasal bleed after polypectomy. - s/p 1 unit pRBC -Check iron studies. Diabetes mellitus type 2 -Patient to continue insulin pump -Follow blood sugars 4 times daily - A1C 8.2 Hypothyroidism -Continue home Synthroid dosing at 44 mcg on Tuesday and 88 mcg all other days of the week Chronic: Rheumatoid arthritis Asthma without exacerbation GERD Imaging: none new Data Review: Labs reviewed from today include CBC and basic metabolic profile which are remarkable for hemoglobin 9.2, sodium 134. Blood sugars reviewed and have been ranging from 199 up to 374. DVT prophylaxis: Heparin SC Anticipated discharge date: Anticipate home in a.m. This dictation was prepared using [employer] voice recognition software. Though every attempt is made to correct errors during dictation some may still exist. Objective - Vital Signs Vital signs: Vital Signs Temp 98.2 F 10/30/23 04:00 Pulse 84 10/30/23 07:00 Resp 19 10/30/23 07:00 BP 96/39 10/30/23 07:00 Pulse Ox 93 L 10/30/23 07:00 FiO2 Intake & Output 10/29/23 10/30/23 10/30/23 18:59 06:59 18:59 Intake Total 1020 Balance 1020 Weight 75 kg Intake: IV 300 Sodium Chloride 0.9% 1, 300 000 ml @ 100 mls/hr IV . Q10H STA Rx#:[id number] Oral 360 Blood Product 310 Rc As-1 Unit 310 [id number] Other 50 Rc As-1 Unit 50 [id number] Other: Voiding Method Toilet Toilet # Voids 1 1 # Bowel Movements 1 ABP, PAP, CO, CI - Last Documented Arterial Blood Pressure 112/41 - Labs CBC & Chem 7: 10/30/23 03:53 10/30/23 03:53 Labs: Abnormal Lab Results - Last 24 Hours (Table) 10/29/23 10/29/23 10/29/23 Range/Units 04:04 04:04 08:39 WBC (3.8-10.6) k/uL RBC (3.80-5.40) m/uL Hgb (11.4-16.0) gm/dL Hct (34.0-46.0) % Sodium (137-145) mmol/L Glucose (74-99) mg/dL POC Glucose (mg/dL) (70-110) mg/dL Hemoglobin A1c 8.2 H (<=6.0) % Calcium (8.4-10.2) mg/dL Transferrin (204.0-354.0) mg/dL Triglycerides 249.00 H (0.00-149.00) mg/dL VLDL Cholesterol, Calc 49.80 H (5.00-40.00) mg/dL HDL Cholesterol 29.70 L (40.00-60.00) mg/dL Crossmatch See Detail 10/29/23 10/29/23 10/29/23 Range/Units 08:39 08:41 08:43 WBC (3.8-10.6) k/uL RBC (3.80-5.40) m/uL Hgb (11.4-16.0) gm/dL Hct (34.0-46.0) % Sodium (137-145) mmol/L Glucose (74-99) mg/dL POC Glucose (mg/dL) 303 H 299 H (70-110) mg/dL Hemoglobin A1c (<=6.0) % Calcium (8.4-10.2) mg/dL Transferrin 181.0 L (204.0-354.0) mg/dL Triglycerides (0.00-149.00) mg/dL VLDL Cholesterol, Calc (5.00-40.00) mg/dL HDL Cholesterol (40.00-60.00) mg/dL Crossmatch 10/29/23 10/29/23 10/29/23 Range/Units 14:15 15:21 17:21 WBC (3.8-10.6) k/uL RBC 3.25 L (3.80-5.40) m/uL Hgb 10.1 L D (11.4-16.0) gm/dL Hct 29.5 L (34.0-46.0) % Sodium (137-145) mmol/L Glucose (74-99) mg/dL POC Glucose (mg/dL) 159 H 184 H (70-110) mg/dL Hemoglobin A1c (<=6.0) % Calcium (8.4-10.2) mg/dL Transferrin (204.0-354.0) mg/dL Triglycerides (0.00-149.00) mg/dL VLDL Cholesterol, Calc (5.00-40.00) mg/dL HDL Cholesterol (40.00-60.00) mg/dL Crossmatch 10/29/23 10/29/23 10/30/23 Range/Units 19:37 23:30 03:01 WBC (3.8-10.6) k/uL RBC (3.80-5.40) m/uL Hgb (11.4-16.0) gm/dL Hct (34.0-46.0) % Sodium (137-145) mmol/L Glucose (74-99) mg/dL POC Glucose (mg/dL) 199 H 253 H 221 H (70-110) mg/dL Hemoglobin A1c (<=6.0) % Calcium (8.4-10.2) mg/dL Transferrin (204.0-354.0) mg/dL Triglycerides (0.00-149.00) mg/dL VLDL Cholesterol, Calc (5.00-40.00) mg/dL HDL Cholesterol (40.00-60.00) mg/dL Crossmatch 10/30/23 10/30/23 10/30/23 Range/Units 03:53 03:53 06:42 WBC 10.8 H (3.8-10.6) k/uL RBC 2.98 L (3.80-5.40) m/uL Hgb 9.2 L (11.4-16.0) gm/dL Hct 26.8 L (34.0-46.0) % Sodium 134 L (137-145) mmol/L Glucose 247 H (74-99) mg/dL POC Glucose (mg/dL) 374 H (70-110) mg/dL Hemoglobin A1c (<=6.0) % Calcium 8.1 L (8.4-10.2) mg/dL Transferrin (204.0-354.0) mg/dL Triglycerides (0.00-149.00) mg/dL VLDL Cholesterol, Calc (5.00-40.00) mg/dL HDL Cholesterol (40.00-60.00) mg/dL Crossmatch
[2023-10-30 11:53] LABS: Glucose,Whole Blood 245 mg/dL (70-110)
--- NOTE | 2023-10-30 12:03 | P.PN ---
Subjective Progress Note Date: 10/30/23 This is Brant Timmons NP, I'm dictating on behalf of Dr. Terrell's H&P and A&P. Patient was interviewed and examined. Patient is a pleasant 63-year-old female who presented to hospital with a STEMI and underwent heart catheterization with successful stenting of mid left circumflex, unsuccessful angioplasty of the left main and proximal left circumflex. Patient reports that she is feeling better today. She has had no further chest pain since yesterday. She denies shortness of breath today. Her groin is slightly tender, but otherwise states has been no bleeding or other issues associated with the puncture site. Patient overall is improving, vital signs are stable. GENERAL: Well-appearing, well-nourished and in no acute distress. NECK: Supple without JVD or thyromegaly. LUNGS: Breath sounds clear to auscultation bilaterally. Respiration equal and unlabored. No wheezes, rales or rhonchi. HEART: Regular rate and rhythm without murmurs, rubs or gallops. S1 and S2 heard. EXTREMITIES: Normal range of motion, no edema. No clubbing or cyanosis. Peripheral pulses intact and strong. VITALS: Temp 97.7, pulse 86, respirations 18, blood pressure 119/51, O2 saturation 93% on 2 L TELEMETRY: Sinus mechanism LABS: White count 10.8, hemoglobin 9.2, platelets 244, sodium 134, potassium 4.0, BUN 16, creatinine 0.59, calcium 8.1 IMPRESSION: 1. Acute myocardial infarction, non-ST elevated 2. ST elevation in aVR with ST depression in the lateral precordial leads and in high lateral leads, however previous EKG shows ST elevation in aVR 3. Anemia, likely will need blood transfusion PLAN: Patient continue metoprolol 25 mg twice daily. Continue Imdur 30 mg daily. Patient has experienced failure of medical treatment, despite maximum dose statin and Zetia therapy. Patient should be prescribed Repatha, in addition to the atorvastatin and Zetia to help reduce incidence and continued risk of [place]. Further recommendations based on patient's clinical course. Objective - Vital Signs Vital signs: Vital Signs Temp 97.7 F 10/30/23 09:00 Pulse 86 10/30/23 09:00 Resp 18 10/30/23 09:00 BP 119/51 10/30/23 09:00 Pulse Ox 93 L 10/30/23 09:00 FiO2 Intake & Output 10/29/23 10/30/23 10/30/23 18:59 06:59 18:59 Intake Total 1020 Balance 1020 Weight 75 kg Intake: IV 300 Sodium Chloride 0.9% 1, 300 000 ml @ 100 mls/hr IV . Q10H STA Rx#:[id number] Oral 360 Blood Product 310 Rc As-1 Unit 310 [id number] Other 50 Rc As-1 Unit 50 [id number] Other: Voiding Method Toilet Toilet # Voids 1 1 # Bowel Movements 1 ABP, PAP, CO, CI - Last Documented Arterial Blood Pressure 112/41 - Labs CBC & Chem 7: 10/30/23 03:53 10/30/23 03:53 Labs: Abnormal Lab Results - Last 24 Hours (Table) 10/29/23 10/29/23 10/29/23 Range/Units 08:39 08:39 14:15 WBC (3.8-10.6) k/uL RBC (3.80-5.40) m/uL Hgb (11.4-16.0) gm/dL Hct (34.0-46.0) % Sodium (137-145) mmol/L Glucose (74-99) mg/dL POC Glucose (mg/dL) 159 H (70-110) mg/dL Calcium (8.4-10.2) mg/dL Transferrin 181.0 L (204.0-354.0) mg/dL Crossmatch See Detail 10/29/23 10/29/23 10/29/23 Range/Units 15:21 17:21 19:37 WBC (3.8-10.6) k/uL RBC 3.25 L (3.80-5.40) m/uL Hgb 10.1 L D (11.4-16.0) gm/dL Hct 29.5 L (34.0-46.0) % Sodium (137-145) mmol/L Glucose (74-99) mg/dL POC Glucose (mg/dL) 184 H 199 H (70-110) mg/dL Calcium (8.4-10.2) mg/dL Transferrin (204.0-354.0) mg/dL Crossmatch 02/10/30/23 10/30/23 Range/Units 23:30 03:01 03:53 WBC 10.8 H (3.8-10.6) k/uL RBC 2.98 L (3.80-5.40) m/uL Hgb 9.2 L (11.4-16.0) gm/dL Hct 26.8 L (34.0-46.0) % Sodium (137-145) mmol/L Glucose (74-99) mg/dL POC Glucose (mg/dL) 253 H 221 H (70-110) mg/dL Calcium (8.4-10.2) mg/dL Transferrin (204.0-354.0) mg/dL Crossmatch 10/30/23 10/30/23 10/30/23 Range/Units 03:53 06:42 11:52 WBC (3.8-10.6) k/uL RBC (3.80-5.40) m/uL Hgb (11.4-16.0) gm/dL Hct (34.0-46.0) % Sodium 134 L (137-145) mmol/L Glucose 247 H (74-99) mg/dL POC Glucose (mg/dL) 374 H 245 H (70-110) mg/dL Calcium 8.1 L (8.4-10.2) mg/dL Transferrin (204.0-354.0) mg/dL Crossmatch
[2023-10-30] MEDS ORDERED: INSULIN PUMP BASAL RATES 1 EACH MISC MISCELLANE PRN (12:07)
[2023-10-30] MEDS ORDERED: INSULIN ASPART (NovoLOG) 100 UNIT/ML VIAL SQ PRN (12:07)
[2023-10-30] MEDS ORDERED: INSPUCOR MISCELLANE PRN (12:07)
[2023-10-30] MEDS: ISOSORBIDE MONONITRATE ER 30 MG TAB.ER.24H PO SCH (12:12)
[2023-10-30] MEDS: FERROUS SULFATE 325 MG TAB PO SCH (12:12)
[2023-10-30] MEDS: INSULIN PUMP MEAL BOLUS 1 UNIT MISC MISCELLANE SCH (12:12)
--- NOTE | 2023-10-30 13:22 | CA ---
Transthoracic Echo Report Name: Mia Diaz Age: 63 Gender: F : 1960 Exam Date: 10/29/2023 14:21 Exam Location: [facility] Ht (in): 61 Wt (lb): 164 Ordering Physician: Monika Krishnan DO Attending/Referring Phys: [id number], Eulogio Interventional Radiologist Fara López RDCS Procedure CPT: Indications: stemi Cardiac Hx: Technical Quality: Technically difficult study Contrast 1: Definity Total Dose (mL): 2 Contrast 2: Total Dose (mL): MEASUREMENTS (Male / Female) Normal Values 2D ECHO LV Diastolic Diameter PLAX 4.2 cm 4.2 - 5.9 / 3.9 - 5.3 cm LV Systolic Diameter PLAX 3.6 cm IVS Diastolic Thickness 1.2 cm 0.6 - 1.0 / 0.6 - 0.9 cm LVPW Diastolic Thickness 1.1 cm 0.6 - 1.0 / 0.6 - 0.9 cm LV Relative Wall Thickness 0.5 RV Internal Dim ED PLAX 2.0 cm LVOT Diameter 1.3 cm LV Diastolic Volume MOD BP 93.4 cm??? 67 - 155 / 56 - 104 cm??? LV Systolic Volume MOD BP 55.0 cm??? 22 - 58 / 19 - 49 cm??? LV Ejection Fraction MOD BP 41.1 % >= 55 % LV Cardiac Index MOD BP 1413.3 cm???/min???m??? LV Diastolic Volume MOD 4C 93.0 cm??? LV Systolic Volume MOD 4C 48.3 cm??? LV Ejection Fraction MOD 4C 48.0 % LV Cardiac Index MOD 4C 1645.0 cm???/min???m??? LV Diastolic Length 4C 8.0 cm LV Systolic Length 4C 7.0 cm LV Diastolic Volume MOD 2C 87.2 cm??? LV Systolic Volume MOD 2C 59.0 cm??? LV Ejection Fraction MOD 2C 32.3 % LV Cardiac Index MOD 2C 1038.9 cm???/min???m??? LV Diastolic Length 2C 7.2 cm LV Systolic Length 2C 6.4 cm LA Volume 52.0 cm??? 18 - 58 / 22 - 52 cm??? LA Volume Index 28.6 cm???/m??? 16 - 28 cm???/m??? M-MODE LV Diastolic Diameter MM 3.6 cm 4.2 - 5.9 / 3.9 - 5.3 cm LV Systolic Diameter MM 2.7 cm LV Cardiac Index MM Teich 951.3 cm???/min???m??? IVS Diastolic Thickness MM 1.0 cm 0.6 - 1.0 / 0.6 - 0.9 cm LVPW Diastolic Thickness MM 1.6 cm 0.6 - 1.0 / 0.6 - 0.9 cm LV Relative Wall Thickness MM 0.7 0.24 - 0.42 / 0.22 - 0.42 LV Mass Index MM 91.4 g/m??? 49 - 115 / 43 - 95 g/m??? Aortic Root Diameter MM 2.5 cm LA Systolic Diameter MM 3.4 cm LA Ao Ratio MM 1.4 AV Cusp Separation MM 1.3 cm DOPPLER AV Peak Velocity 166.1 cm/s AV Peak Gradient 11.0 mmHg AV Mean Velocity 110.5 cm/s AV Mean Gradient 5.4 mmHg AV Velocity Time Integral 32.4 cm LVOT Peak Velocity 95.8 cm/s LVOT Peak Gradient 3.7 mmHg LVOT Velocity Time Integral 22.6 cm LVOT Stroke Volume 30.1 cm??? LVOT Stroke Volume Index 17.3 ml/m??? LVOT Cardiac Index 1107.6 cm???/min???m??? AV Area Cont Eq vti 0.9 cm??? AV Area Cont Eq pk 0.8 cm??? MV Area PHT 4.4 cm??? Mitral E Point Velocity 123.1 cm/s Mitral A Point Velocity 0.0 cm/s Mitral E to A Ratio 29743.9 MV Deceleration Time 171.3 ms MV E' Velocity 6.3 cm/s Mitral E to MV E' Ratio 19.5 TR Peak Velocity 319.7 cm/s TR Peak Gradient 40.9 mmHg Right Ventricular Systolic Press 44.0 mmHg FINDINGS Left Ventricle Mildly increased left ventricular mass. Mildly decreased fractional shortening. Severely decreased midwall fractional shortening. Mildly increased left ventricular systolic volume. Moderately decreased left ventricular ejection fraction. Left ventricular ejection fraction is estimated at 45-50 %. Right Ventricle Normal right ventricular size and function. Right Atrium Normal right atrial size. Left Atrium Mildly increased left atrial area. Mitral Valve Structurally normal mitral valve. Mitral valve thickened. Mild mitral annular calcification. Mild mitral regurgitation. Aortic Valve Trileaflet aortic valve. No aortic valve stenosis or regurgitation. Aortic valve sclerosis. Tricuspid Valve Structurally normal tricuspid valve. Mild tricuspid regurgitation. Pulmonic Valve Structurally normal pulmonic valve. Trace pulmonic regurgitation. Pericardium No pericardial effusion. Aorta Normal size aortic root and proximal ascending aorta. CONCLUSIONS Mildly reduced LV systolic function ejection fraction 45-50% with inferior and lateral hypokinesis Previewed by: Dr. Mina Terrell MD (Electronically Signed) Final Date: 30 October 2023 13:21
[2023-10-30] MEDS: HEPARIN SODIUM,PORCINE 5,000 UNIT/ML 1 ML VIAL SQ SCH (18:03)
[2023-10-30] MEDS: METOPROLOL TARTRATE 50 MG TAB PO SCH (20:11)
[2023-10-30] MEDS: ISOSORBIDE MONONITRATE ER 60 MG TAB.ER.24H PO SCH (20:11)
[2023-10-30 20:22] LABS: Glucose,Whole Blood 213 mg/dL (70-110)
[2023-10-31 02:18] LABS: Glucose,Whole Blood 117 mg/dL (70-110)
[2023-10-31 06:16] LABS: Glucose,Whole Blood 122 mg/dL (70-110)
[2023-10-31 07:47] LABS: Mean Platelet Volume 7.6; Platelet Count 246 k/uL (150-450)
[2023-10-31 08:59] VITALS: BP 144/71; PULSE 72; RESP 16; TEMP 98.2
--- NOTE | 2023-10-31 11:06 | P.DS ---
Providers Date of admission: 10/28/23 23:12 Expected date of discharge: 10/31/23 Attending physician: Rita Crook MD Consults: 10/28/23 23:08 Consult Physician Urgent Consulting Provider: Mina Terrell Consult Reason/Comments: acs Do you want consulting provider notified?: Yes Primary care physician: Maged Garcia Hospital Course: Discharge Diagnosis: STEMI due to in-stent restenosis status post PCI to the left main Hypertension Dyslipidemia Cardiomyopathy Anemia, Acute blood loss Diabetes mellitus type 2 Hypothyroidism Chronic: Rheumatoid arthritis Asthma without exacerbation GERD Hospital Course: Patient is a 63-year-old female with history of coronary artery disease status post triple bypass surgery in 2010, diabetes mellitus type 2 insulin requiring, GERD, hypertension, dyslipidemia, and multiple other comorbid conditions who presented to the emergency department with complaints of chest discomfort. On arrival to the emergency department she was noted to be tachycardic with a heart rate of 106. EKG was performed which showed ST depression in leads I, II, V4, V5, and V6 with some ST segment elevation in aVR and V1. She was taken emergently to the [facility] by Dr. Vides where she was found to have critical in- stent restenosis of the left main and proximal left circumflex artery and underwent successful PCI. Initial labs were remarkable for hemoglobin 8.5) of note she had undergone a procedure to stop nosebleeding on 10/27/2023 after having had a nasal polyp removed), sodium 136, BUN 28, glucose 216. Patient was subsequently admitted to the ICU. She was given aspirin and Effient. She continued to do well. Her echo came back with EF 45-50% with inferior and lateral hypokinesis. She continued to do well and she was cleared by cardiology for discharge. Follow-up: Dr. Palomo her primary flash developer next week. New medications on discharge include iron, vitamin D, and her Imdur was decreased to 30 mg daily. Patient was asked to optimize her blood sugar control. Patient seen and examined at bedside. No additional chest pain. Has been up and walking in the hallways. All questions answered. Vital signs reviewed and stable. General: Nontoxic, no distress, appears at stated age Cardiovascular: S1S2 reg, no murmur, positive posterior tibial pulse bilateral, Lungs: CTA bilateral, no rhonchi, no rales, no accessory muscle use Abdominal: Soft, nontender to palpation, no guarding, no appreciable organomegaly Ext: No gross muscle atrophy, no edema b/l lower extremities, no contractures Neuro: CN II-XI grossly intact, no focal neuro deficits 10/31/23 35 appropriate affect oriented Alert no focal neuro deficits CN II-XI grossly intact no contractures no edema b/l lower extremities No gross muscle atrophy no appreciable organomegaly no guarding nontender to palpation Soft no accessory muscle use no rhonchi, no rales CTA bilateral positive posterior tibial pulse bilateral no murmur S1S2 reg appears at stated age no distress Nontoxic Psych: Alert, oriented, appropriate affect A total of 35 minutes of time were spent preparing this complex discharge summary. Patient was discharged on 10/31/23. This dictation was prepared using [employer] voice recognition software. Though every attempt is made to correct errors during dictation some may still exist. Patient Condition at Discharge: Fair Plan - Discharge Summary New Discharge Prescriptions: New Isosorbide Mononitrate ER [Imdur] 30 mg PO DAILY@1200 #30 tab Ferrous Sulfate [Slow Release Iron] 142 mg PO DAILY #30 tab Cholecalciferol [Vitamin D3 (25 Mcg = 1000 Iu)] 50 mcg PO DAILY tab Continue Insulin Aspart (For Pump) [NovoLOG (For Pump)] 0.01 unit SQ-PUMP CONTINUOUS Albuterol Sulfate [Proair Hfa] 1 - 2 puff INHALATION RT-Q6H PRN PRN Reason: Shortness Of Breath Atorvastatin [Lipitor] 80 mg PO HS #30 tab Nitroglycerin Sl Tabs [Nitrostat] 0.4 mg SL Q5M PRN PRN Reason: Chest Pain Montelukast [Singulair] 10 mg PO HS PRN PRN Reason: Allergy Symptoms Ezetimibe [Zetia] 10 mg PO HS Certolizumab Pegol [Cimzia] 400 mg SQ Q30D Levothyroxine Sodium [Synthroid] 88 mcg PO MOTUWETHFRSA Levothyroxine Sodium 44 mcg PO ALEX Ranolazine [Ranexa] 500 mg PO DAILY dexAMETHasone [Decadron] 1 mg PO DIRECTED PRN PRN Reason: Rheumatoid Arthritis Flare Up Omeprazole 20 mg PO DAILY Aspirin 81 mg PO DAILY Prasugrel [Effient] 10 mg PO DAILY Metoprolol Succinate (ER) [Toprol XL] 50 mg PO DAILY Discontinued Ibuprofen [Motrin Ib] 200 mg PO Q8H PRN PRN Reason: Pain Isosorbide Mononitrate ER [Imdur] 60 mg PO DAILY Naproxen Sodium [Aleve] 220 - 440 mg PO Q8H PRN PRN Reason: Pain Discharge Medication List Insulin Aspart (For Pump) [NovoLOG (For Pump)] 0.01 unit SQ-PUMP CONTINUOUS 04/14/17 [History] Albuterol Sulfate [Proair Hfa] 1 - 2 puff INHALATION RT-Q6H PRN 03/24/18 [History] Atorvastatin [Lipitor] 80 mg PO HS #30 tab 03/28/18 [Rx] Certolizumab Pegol [Cimzia] 400 mg SQ Q30D 08/20/18 [History] Ezetimibe [Zetia] 10 mg PO HS 08/20/18 [History] Montelukast [Singulair] 10 mg PO HS PRN 08/20/18 [History] Nitroglycerin Sl Tabs [Nitrostat] 0.4 mg SL Q5M PRN 08/20/18 [History] Levothyroxine Sodium [Synthroid] 88 mcg PO MOTUWETHFRSA 07/29/19 [History] Aspirin 81 mg PO DAILY 10/11/23 [History] Levothyroxine Sodium 44 mcg PO ALEX 10/11/23 [History] Omeprazole 20 mg PO DAILY 10/11/23 [History] Prasugrel [Effient] 10 mg PO DAILY 10/11/23 [History] Ranolazine [Ranexa] 500 mg PO DAILY 10/11/23 [History] dexAMETHasone [Decadron] 1 mg PO DIRECTED PRN 10/11/23 [History] Metoprolol Succinate (ER) [Toprol XL] 50 mg PO DAILY 10/29/23 [History] Cholecalciferol [Vitamin D3 (25 Mcg = 1000 Iu)] 50 mcg PO DAILY tab 10/31/23 [Rx] Ferrous Sulfate [Slow Release Iron] 142 mg PO DAILY #30 tab 10/31/23 [Rx] Isosorbide Mononitrate ER [Imdur] 30 mg PO DAILY@1200 #30 tab 10/31/23 [Rx] Follow up Appointment(s)/Referral(s): Maged Garcia DO [Primary Care Provider] - 1-2 days Activity/Diet/Wound Care/Special Instructions: Activity: As tolerated Diet: Heart healthy, consistent carb Special Instructions: Please follow with your flash developer, Dr. Palomo in the next week.
--- NOTE | 2023-10-31 15:27 | P.PN ---
Subjective Progress Note Date: 10/31/23 Patient is a pleasant 63-year-old female who presented to hospital with a STEMI and underwent heart catheterization with successful stenting of mid left circumflex, unsuccessful angioplasty of the left main and proximal left circumflex. Patient reports that she is feeling better today. She has had no further chest pain since yesterday. She denies shortness of breath today. Her groin is slightly tender, but otherwise states has been no bleeding or other issues associated with the puncture site. Patient overall is improving, vital signs are stable. VITALS: Temp 97.7, pulse 86, respirations 18, blood pressure 119/51, O2 saturation 93% on 2 L TELEMETRY: Sinus mechanism LABS: White count 10.8, hemoglobin 9.2, platelets 244, sodium 134, potassium 4.0, BUN 16, creatinine 0.59, calcium 8.1 10/31 Patient denies having any chest pain. She has ambulated without any symptoms including lightheadedness dizziness, palpitations, chest pain. No shortness of breath. Blood pressure 144/71, heart rate in the 70s and 80s. Pulse ox 95% on room air. GENERAL: Well-appearing, well-nourished and in no acute distress. NECK: Supple without JVD or thyromegaly. LUNGS: Breath sounds clear to auscultation bilaterally. Respiration equal and unlabored. No wheezes, rales or rhonchi. HEART: Regular rate and rhythm without murmurs, rubs or gallops. S1 and S2 heard. EXTREMITIES: Normal range of motion, no edema. No clubbing or cyanosis. Peripheral pulses intact and strong. IMPRESSION: 1. Acute myocardial infarction, non-ST elevated 2. ST elevation in aVR with ST depression in the lateral precordial leads and in high lateral leads, however previous EKG shows ST elevation in aVR 3. Anemia PLAN: Continue patient's current cardiac medications Patient is cleared for discharge and may follow-up with either her primary restaurant area director or with Dr. Terrell. Nurse practitioner note has been reviewed, I agree with documented findings and plan of care. Patient was seen and examined. Objective - Vital Signs Vital signs: Vital Signs Temp 98.2 F 10/31/23 08:00 Pulse 72 10/31/23 08:00 Resp 16 10/31/23 08:00 BP 144/71 10/31/23 08:00 Pulse Ox 95 10/31/23 08:00 FiO2 Intake & Output 10/30/23 10/31/23 10/31/23 18:59 06:59 18:59 Intake Total 360 10 Balance 360 10 Intake: IV 10 0.9 10 Oral 360 Other: Voiding Method Toilet Toilet # Voids 1 2 ABP, PAP, CO, CI - Last Documented Arterial Blood Pressure 112/41 - Labs CBC & Chem 7: 10/31/23 07:22 10/30/23 03:53 Labs: Abnormal Lab Results - Last 24 Hours (Table) 10/30/23 10/30/23 10/31/23 Range/Units 11:52 20:21 02:16 POC Glucose (mg/dL) 245 H 213 H 117 H (70-110) mg/dL 10/31/23 Range/Units 06:12 POC Glucose (mg/dL) 122 H (70-110) mg/dL
[2023-11-05] MEDS ORDERED: NON FORMULARY DRUG (Certolizumab Pegol [Cimzia] 400 MG/2 ML Syringekit) SQ SCH (09:00)
== END 2023-10-31 12:31 | disposition home or self-care (01) | DRG 321 ==
LOC: SUPCPDRO 22:59 → EC 22:59 → 2SICU 23:12 → 3SCARD 10-30 16:32
PROVIDERS: ADMIT Internal Medicine; ATTEND Internal Medicine
PROC: B2121ZZ Fluoroscopy of Single Coronary Artery Bypass Graft using Low Osmolar Contrast (ICD-10-PCS; principal; 2023-10-28 23:29)
PROC: 4A023N7 Measurement of Cardiac Sampling and Pressure, Left Heart, Percutaneous Approach (ICD-10-PCS; principal; 2023-10-28 23:29)
PROC: B241ZZ3 Ultrasonography of Multiple Coronary Arteries, Intravascular (ICD-10-PCS; principal; 2023-10-28 23:29)
PROC: 027034Z Dilation of Coronary Artery, One Artery with Drug-eluting Intraluminal Device, Percutaneous Approach (ICD-10-PCS; principal; 2023-10-28 23:29)
PROC: B2111ZZ Fluoroscopy of Multiple Coronary Arteries using Low Osmolar Contrast (ICD-10-PCS; principal; 2023-10-28 23:29)
DX: T82.855A Stenosis of coronary artery stent, initial encounter (principal); I21.3 ST elevation (STEMI) myocardial infarction of unspecified site; D62 Acute posthemorrhagic anemia; I42.9 Cardiomyopathy, unspecified; J95.830 Postprocedural hemorrhage of a respiratory system organ or structure following a respiratory system procedure; H91.90 Unspecified hearing loss, unspecified ear; E89.0 Postprocedural hypothyroidism; E11.319 Type 2 diabetes mellitus with unspecified diabetic retinopathy without macular edema; E78.5 Hyperlipidemia, unspecified; F32.A Depression, unspecified; I25.2 Old myocardial infarction; J45.909 Unspecified asthma, uncomplicated; K21.9 Gastro-esophageal reflux disease without esophagitis; I25.10 Atherosclerotic heart disease of native coronary artery without angina pectoris; I10 Essential (primary) hypertension; Y83.8 Other surgical procedures as the cause of abnormal reaction of the patient, or of later complication, without mention of misadventure at the time of the procedure; C44.90 Unspecified malignant neoplasm of skin, unspecified; R04.0 Epistaxis; M06.9 Rheumatoid arthritis, unspecified; Z95.1 Presence of aortocoronary bypass graft; Z96.41 Presence of insulin pump (external) (internal); Z79.82 Long term (current) use of aspirin; Z79.4 Long term (current) use of insulin; Z79.02 Long term (current) use of antithrombotics/antiplatelets; Z79.899 Other long term (current) drug therapy; Z79.890 Hormone replacement therapy; Z80.8 Family history of malignant neoplasm of other organs or systems; Z82.49 Family history of ischemic heart disease and other diseases of the circulatory system; Z83.3 Family history of diabetes mellitus; Z85.850 Personal history of malignant neoplasm of thyroid; Z88.1 Allergy status to other antibiotic agents; Z88.0 Allergy status to penicillin; Z95.5 Presence of coronary angioplasty implant and graft
CPT/HCPCS: 36415; 71045; 80048; 80053; 80061; 82728; 83036; 83540; 83550; 83690; 83735; 83880; 84484; 85025; 85027; 85049; 85610; 85730; 86850; 86900; 86901; 86920; 92972; 92978; 93005; 93306; 93459; 96374; 96375; 99291

== ENCOUNTER 2024-08-03 16:31 | Emergency (ER) | payer BC ==
[2024-08-03 16:44] VITALS: TEMP 98.4
[2024-08-03 18:09] LABS: Basophils # (A) 0.1 k/uL (0-0.2); Basophils % (A) 1 %; Eosinophils # (A) 0.3 k/uL (0-0.7); Eosinophils % (A) 5 %; HCT 39.8 % (34.0-46.0); HGB 13.4 gm/dL (11.4-16.0); Lymphocytes # (A) 1.1 k/uL (1.0-4.8); Lymphocytes % (A) 18 %; MCH 29.1 pg (25.0-35.0); MCHC 33.6 g/dL (31.0-37.0); MCV 86.5 fL (80.0-100.0); Mean Platelet Volume 6.9; Monocytes # (A) 0.5 k/uL (0-1.0); Monocytes % (A) 8 %; Neutrophils % (A) 65 %; Platelet Count 287 k/uL (150-450); RDW 13.5 % (11.5-15.5); WBC 6.2 k/uL (3.8-10.6)
[2024-08-03 18:26] LABS: ALT 23 U/L (4-34); AST 26 U/L (14-36); African American GFR (CKD) >90 (>60 ml/min/1.73 sqM); Albumin 4.2 g/dL (3.5-5.0); Alkaline Phosphatase 98 U/L (38-126); Anion Gap 5 mmol/L; Blood Urea Nitrogen 18 mg/dL (7-17); Calcium 9.1 mg/dL (8.4-10.2); Carbon Dioxide 25 mmol/L (22-30); Chloride 107 mmol/L (98-107); Glucose 293 mg/dL (74-99); Non-African American GFR(CKD) >90 (>60 ml/min/1.73 sqM); Potassium 4.4 mmol/L (3.5-5.1); Sodium 137 mmol/L (137-145); Total Bilirubin 0.7 mg/dL (0.2-1.3); Total Protein 7.3 g/dL (6.3-8.2)
--- NOTE | 2024-08-03 18:28 | ED ---
General Adult HPI - General Chief complaint: Chest Pain Stated complaint: Chest Pain Time Seen by Provider: 08/03/24 16:45 Source: patient Mode of arrival: wheelchair Limitations: no limitations - History of Present Illness Initial comments: Dictation was produced using [employer] dictation software. please excuse any grammatical, word or spelling errors. Chief Complaint: 64-year-old female with extensive cardiac history presents with chest pain History of Present Illness: Patient 64-year-old female she has extensive cardiac history including coronary artery stents, bypass. She is been having some chest pain and palpitations. Patient not sure if it is her new anxiety. States that she has some upcoming procedures that she is really nervous about. No associate diaphoresis or nausea. The ROS documented in this emergency department record has been reviewed and confirmed by me. Those systems with pertinent positive or negative responses have been documented in the HPI. All other systems are other negative and/or noncontributory. - Related Data Home Medications Medication Instructions Recorded Confirmed Insulin Aspart (For Pump) [NovoLOG 0.01 unit SQ-PUMP CONTINUOUS 04/14/17 10/29/23 (For Pump)] Albuterol Sulfate [Proair Hfa] 1 - 2 puff INHALATION RT-Q6H PRN 03/24/18 10/29/23 Certolizumab Pegol [Cimzia] 400 mg SQ Q30D 08/20/18 10/29/23 Ezetimibe [Zetia] 10 mg PO HS 08/20/18 10/29/23 Montelukast [Singulair] 10 mg PO HS PRN 08/20/18 10/29/23 Nitroglycerin Sl Tabs [Nitrostat] 0.4 mg SL Q5M PRN 08/20/18 10/29/23 Levothyroxine Sodium [Synthroid] 88 mcg PO [id number] 07/29/19 10/29/23 Aspirin 81 mg PO DAILY 10/11/23 10/29/23 Levothyroxine Sodium 44 mcg PO ALEX 10/11/23 10/29/23 Omeprazole 20 mg PO DAILY 10/11/23 10/29/23 Prasugrel [Effient] 10 mg PO DAILY 10/11/23 10/29/23 Ranolazine [Ranexa] 500 mg PO DAILY 10/11/23 10/29/23 dexAMETHasone [Decadron] 1 mg PO DIRECTED PRN 10/11/23 10/29/23 Metoprolol Succinate (ER) [Toprol 50 mg PO DAILY 10/29/23 10/29/23 XL] Previous Rx's Medication Instructions Recorded Atorvastatin [Lipitor] 80 mg PO HS #30 tab 03/28/18 Cholecalciferol [Vitamin D3 (25 50 mcg PO DAILY tab 10/31/23 Mcg = 1000 Iu)] Ferrous Sulfate [Slow Release Iron] 142 mg PO DAILY #30 tab 10/31/23 Isosorbide Mononitrate ER [Imdur] 30 mg PO DAILY@1200 #30 tab 10/31/23 Allergies Allergy/AdvReac Type Severity Reaction Status Date / Time amoxicillin Allergy Nausea & Verified 08/03/24 16:40 Vomiting infliximab [From Remicade] Allergy Unknown Verified 08/03/24 16:40 tetracycline Allergy Rash/Hives Verified 08/03/24 16:40 3-0 Silk Sutures Allergy Cause Uncoded 08/03/24 16:40 Infection Review of Systems ROS Statement: Those systems with pertinent positive or pertinent negative responses have been documented in the HPI. ROS Other: All systems not noted in ROS Statement are negative. Past Medical History Past Medical History: Asthma, Coronary Artery Disease (CAD), Cancer, Diabetes Mellitus, Eye Disorder, GERD/Reflux, Hearing Disorder / Deafness, Hyperlipidemia, Hypertension, Myocardial Infarction ([place]), Rheumatoid Arthritis ([place]) Additional Past Medical History / Comment(s): Allergy Induced Asthma. Hx Medullulary Thyroid Cancer. Diabetic Retinopathy. Some difficulty hearing, "ears plugged." Hx [place] X2 - 03/24/18 and 04/23/19. Last Myocardial Infarction Date:: 04/23/19 History of Any Multi-Drug Resistant Organisms: None Reported Past Surgical History: Breast Surgery, Section, Coronary Bypass/CABG, Heart Catheterization With Stent, Orthopedic Surgery Additional Past Surgical History / Comment(s): Section X2, CABG - triple bypass [address] Boris Austin, benign breast biopsy, breast reduction, trigger finger release, thyroidectomy 2011, right knee s urgery, vectrectomy left eye, bilateral cataract surgery, angioplasty 02/2020, has total of 4 stents, nasopharyngeal biopsy. Past Anesthesia/Blood Transfusion Reactions: Previous Problems w/ Anesthesia, Family History of Problems w/ Anesthesia, Motion Sickness, Postoperative Nausea & Vomiting (PONV) Additional Past Anesthesia/Blood Transfusion Reaction / Comment(s): Patient has trouble coming out of anesthesia, states has had trouble all but 3 times. States Jun 19 had [address] Wilkins, had trouble waking up and slept for an extended period of time after. States always wakes up emotional/crying. States after her Dad's Bypass Surgery he did not wake up for 5-6 days after. Date of Last Stent Placement:: 07/24 Past Psychological History: Depression Smoking Status: Never smoker Past Alcohol Use History: None Reported Past Drug Use History: None Reported - Past Family History Father Family Medical History: Coronary Artery Disease (CAD), CVA/TIA Additional Family Medical History / Comment(s): Father at age 88 with history of CVA, cardiovascular disease, brain aneurysm, triple bypass at age 69. Mother Family Medical History: Cancer Additional Family Medical History / Comment(s): Breast cancer, at age 66. Brother(s) Family Medical History: Cancer Additional Family Medical History / Comment(s): Medullary thyroid cancer, , he was a [place] vet with exposure to agent orange and complications. Sister(s) Additional Family Medical History / Comment(s): She has one sister that is alive with history of diabetes mellitus type 2. Patient has 2 children with no major medical problems. General Exam - General Exam Comments Initial Comments: PHYSICAL EXAM: General Impression: Alert and oriented x3, not in acute distress HEENT: Normocephalic atraumatic, extra-ocular movements intact, pupils equal and reactive to light bilaterally, mucous membranes moist. Cardiovascular: Heart regular rate and rhythm Chest: Able to complete full sentences, no retractions, no tachypnea Abdomen: abdomen soft, non-tender, non-distended, no organomegaly Musculoskeletal: Pulses present and equal in all extremities, no peripheral edema Motor: no focal deficits noted Neurological: CN II-XII grossly intact, no focal motor or sensory deficits noted Skin: Intact with no visualized rashes Psych: Normal affect and mood Limitations: no limitations Course Vital Signs 08/03/24 08/03/24 16:40 21:20 Temperature 98.4 F Pulse Rate 68 57 L Respiratory 18 8 L Rate Blood Pressure 160/62 154/62 O2 Sat by Pulse 96 98 Oximetry EKG Findings - EKG Comments: EKG Findings:: My EKG interpretation: Ventricular rate 62, sinus rhythm,. 179, QRS 105, QTc 478. No NV prolongation, no QTC prolongation, no ST or T-wave changes noted. Overall, this EKG is unremarkable Medical Decision Making - Medical Decision Making Was pt. sent in by a medical professional or institution (, PA, DESK OFFICER, urgent care, hospital, or usp...) When possible be specific @ -No Did you speak to anyone other than the patient for history (EMS, parent, family, police, friend...)? What history was obtained from this source @ -No Did you review nursing and triage notes (agree or disagree)? Why? @ -I reviewed and agree with nursing and triage notes Were old charts reviewed (outside hosp., previous admission, EMS record, old EKG, old radiological studies, urgent care reports/EKG's, usp records)? Report findings @ -No old charts were reviewed Differential Diagnosis (chest pain, altered mental status, abdominal pain women, abdominal pain men, vaginal bleeding, musculoskeletal, weakness, fever, dyspnea, syncope, headache, dizziness, GI bleed, back pain, seizure, CVA, palpatations, mental health)? @ -Differential Chest Pain: Stable Angina, Unstable Angina, STEMI, NSTEMI Aortic Dissection, Pneumothorax, Musculoskeletal, Esophageal Spasm GERD, Cholecystitis, Pancreatitis, Zoster, this is not meant to be an all-inclusive list. EKG interpreted by me (3pts min.). @ -See above X-rays interpreted by me (1pt min.). @ -Chest x-ray is nonacute CT interpreted by me (1pt min.). @ -None done U/S interpreted by me (1pt. min.). @ -None done What testing was considered but not performed or refused? (CT, X-rays, U/S, labs)? Why? @ -None What meds were considered but not given or refused? Why? @ -None Was smoking cessation discussed for >3mins.? @ -No Were there social determinants of health that impacted care today? How? (Homelessness, low income, unemployed, alcoholism, drug addiction, transportation, low edu. Level, literacy, decrease access to med. care, fpc, rehab)? @ -No Was there de-escalation of care discussed even if they declined (Discuss DNR or withdrawal of care, Hospice)? DNR status @ -No What co-morbidities impacted this encounter? (DM, HTN, Smoking, COPD, CAD, Cancer, CVA, ARF, Chemo, Hep., AIDS, mental health diagnosis, sleep apnea, morbid obesity)? @ -Coronary artery disease Was patient admitted / discharged? Hospital course, mention meds given and route , prescriptions, significant lab abnormalities, going to OR and other pertinent info. @ -64-year-old female presents emergency department for chest pain. She not sure if things are anxiety. Vital signs stable. EKG is unremarkable. Laboratory evaluation is obtained found to be within acceptable limits. Patient wanted to be discharged due to some upcoming appointments. She did not want to be admitted observation but did opt for serial troponins. Patient had 2 negative troponins by 3 hours. Reevaluated bedside at 10:00 PM with no pain. Patient given strict return precautions otherwise advised close follow-up with primary care doctor. Did you discuss the management of the patient with other professionals (professionals i.e. , PA, DESK OFFICER, lab, RT, psych nurse, social work nurse, real estate lawyer, teacher, benefits officer, case consultant)? Give summary @ -No Was critical care preformed (if so, how long)? @ -No Undiagnosed new problem with uncertain prognosis? @ -No Drug Therapy requiring intensive monitoring for toxicity (Heparin, Nitro, Insulin, Cardizem)? @ -No Were any procedures done? @ -No Diagnosis/symptom? Acute, or Chronic, or Acute on Chronic? Uncomplicated (without systemic symptoms) or Complicated (systemic symptoms)? @ -Chest pain Side effects of treatment? @ -No Exacerbation, Progression, or Severe Exacerbation? @ -No Poses a threat to life or bodily function? How? (Chest pain, [place], [place], pneumonia, PE, COPD, DKA, ARF, appy, cholecystitis, CVA, Diverticulitis, Homicidal, Suicidal, threat to staff... and all critical care pts) @ -yes - Lab Data Result diagrams: 08/03/24 17:52 08/03/24 17:52 Lab Results 08/03/24 08/03/24 08/03/24 Range/Units 17:52 17:52 17:52 WBC 6.2 (3.8-10.6) k/uL RBC 4.60 (3.80-5.40) m/uL Hgb 13.4 (11.4-16.0) gm/dL Hct 39.8 (34.0-46.0) % MCV 86.5 (80.0-100.0) fL MCH 29.1 (25.0-35.0) pg MCHC 33.6 (31.0-37.0) g/dL RDW 13.5 (11.5-15.5) % Plt Count 287 (150-450) k/uL MPV 6.9 Neutrophils % 65 % Lymphocytes % 18 % Monocytes % 8 % Eosinophils % 5 % Basophils % 1 % Neutrophils # 4.0 (1.3-7.7) k/uL Lymphocytes # 1.1 (1.0-4.8) k/uL Monocytes # 0.5 (0-1.0) k/uL Eosinophils # 0.3 (0-0.7) k/uL Basophils # 0.1 (0-0.2) k/uL PT 10.4 (10.0-12.5) sec INR 0.9 (<1.2) APTT 21.7 L (22.0-30.0) sec Sodium 137 (137-145) mmol/L Potassium 4.4 (3.5-5.1) mmol/L Chloride 107 (98-107) mmol/L Carbon Dioxide 25 (22-30) mmol/L Anion Gap 5 mmol/L BUN 18 H (7-17) mg/dL Creatinine 0.66 (0.52-1.04) mg/dL Est GFR (CKD-EPI)AfAm >90 (>60 ml/min/1.73 sqM) Est GFR (CKD-EPI)NonAf >90 (>60 ml/min/1.73 sqM) Glucose 293 H (74-99) mg/dL Calcium 9.1 (8.4-10.2) mg/dL Magnesium 2.0 (1.6-2.3) mg/dL Total Bilirubin 0.7 (0.2-1.3) mg/dL AST 26 (14-36) U/L ALT 23 (4-34) U/L Alkaline Phosphatase 98 (38-126) U/L Troponin I (0.000-0.034) ng/mL Total Protein 7.3 (6.3-8.2) g/dL Albumin 4.2 (3.5-5.0) g/dL 08/03/24 08/03/24 Range/Units 17:52 21:10 WBC (3.8-10.6) k/uL RBC (3.80-5.40) m/uL Hgb (11.4-16.0) gm/dL Hct (34.0-46.0) % MCV (80.0-100.0) fL MCH (25.0-35.0) pg MCHC (31.0-37.0) g/dL RDW (11.5-15.5) % Plt Count (150-450) k/uL MPV Neutrophils % % Lymphocytes % % Monocytes % % Eosinophils % % Basophils % % Neutrophils # (1.3-7.7) k/uL Lymphocytes # (1.0-4.8) k/uL Monocytes # (0-1.0) k/uL Eosinophils # (0-0.7) k/uL Basophils # (0-0.2) k/uL PT (10.0-12.5) sec INR (<1.2) APTT (22.0-30.0) sec Sodium (137-145) mmol/L Potassium (3.5-5.1) mmol/L Chloride (98-107) mmol/L Carbon Dioxide (22-30) mmol/L Anion Gap mmol/L BUN (7-17) mg/dL Creatinine (0.52-1.04) mg/dL Est GFR (CKD-EPI)AfAm (>60 ml/min/1.73 sqM) Est GFR (CKD-EPI)NonAf (>60 ml/min/1.73 sqM) Glucose (74-99) mg/dL Calcium (8.4-10.2) mg/dL Magnesium (1.6-2.3) mg/dL Total Bilirubin (0.2-1.3) mg/dL AST (14-36) U/L ALT (4-34) U/L Alkaline Phosphatase (38-126) U/L Troponin I <0.012 <0.012 (0.000-0.034) ng/mL Total Protein (6.3-8.2) g/dL Albumin (3.5-5.0) g/dL Disposition Clinical Impression: Chest pain Disposition: HOME SELF-CARE Condition: Fair Instructions (If sedation given, give patient instructions): Chest Pain (ED) Is patient prescribed a controlled substance at d/c from ED?: No Referrals: Maged Garcia DO [Primary Care Provider] - 1-2 days Time of Disposition: 22:09
[2024-08-03 18:46] LABS: INR 0.9 (<1.2); Prothrombin Time 10.4 sec (10.0-12.5)
--- NOTE | 2024-08-03 18:46 | XR ---
EXAMINATION TYPE: XR chest 2V DATE OF EXAM: 08/03/2024 6:15 PM COMPARISON: Chest radiographs from 10/28/2023 CLINICAL INDICATION: Female, 64 years old with history of Chest Pain; TECHNIQUE: XR chest 2V Frontal and lateral views of the chest. FINDINGS: Lungs/Pleura: There is no evidence of pleural effusion, focal consolidation, or pneumothorax. Pulmonary vascularity: Unremarkable. Heart/mediastinum: Cardiomediastinal silhouette is unremarkable. Stem projects over the heart. Musculoskeletal: No acute osseous pathology. Midline sternotomy wires are noted. IMPRESSION: No acute cardiopulmonary disease/process. [facility], , 08/03/2024 6:44 PM
[2024-08-03] MEDS: LORazepam 2 MG/ML INJ IV STA (19:00)
[2024-08-03 19:04] LABS: Partial Thromboplastin Time 21.7 sec (22.0-30.0)
[2024-08-03 21:27] VITALS: BP 154/62; PULSE 57; RESP 8
[2024-08-03] MEDS: ASPIRIN 81 MG PO STA (22:48)
== END 2024-08-03 23:00 | disposition home or self-care (01) ==
LOC: EC 16:31
DX: R07.9 Chest pain, unspecified (principal); I25.10 Atherosclerotic heart disease of native coronary artery without angina pectoris; Z90.89 Acquired absence of other organs; Z95.1 Presence of aortocoronary bypass graft; Z95.5 Presence of coronary angioplasty implant and graft
CPT/HCPCS: 36415; 93005; 80053; 83735; 84484; 85025; 85610; 85730; 71046; 99285; 96374; J2060